=== PATIENT | male | born 1945 | race Caucasian/White ===

== ENCOUNTER 2019-07-19 06:42 | Inpatient (IN) | payer MEDICARE ==
[~2019-07-19] VITALS: Ht 172.7 cm; Wt 200.0 kg
--- NOTE | 2019-07-19 07:08 | PHYS DOC ---
Adult General Chief Complaint Chief Complaint: malaise HPI HPI Patient is a 74-year-old male who presents via EMS from home after having fallen from bed. Patient had called for lift assist by EMS and upon further questioning, he was found to have few days history of generalized weakness, chills and malaise. Patient denies any chest pain but does admit to some shortness of breath with exertion. He also complains of chills but is not sure whether or not he has been running a fever. He states that he has been septic in the past and is worried that he may be septic again. He does complain of a headache that he rates as moderate. He states that nothing is improving his symptoms.[] Review of Systems Review of Systems Constitutional: Denies fever or chills [] Eyes: Denies change in visual acuity, redness, or eye pain [] HENT: Denies nasal congestion or sore throat [] Respiratory: Denies cough or shortness of breath [] Cardiovascular: No additional information not addressed in HPI [] GI: Denies abdominal pain, nausea, vomiting, bloody stools or diarrhea [] : Denies dysuria or hematuria [] Musculoskeletal: Denies back pain or joint pain [] Integument: Denies rash or skin lesions [] Neurologic: Denies headache, focal weakness or sensory changes [] Endocrine: Denies polyuria or polydipsia [] All other systems were reviewed and found to be within normal limits, except as documented in this note. Physical Exam Physical Exam Constitutional: Morbidly obese, no acute distress, non-toxic appearance. [] HENT: Normocephalic, atraumatic, bilateral external ears normal, oropharynx dry, no oral exudates, nose normal. [] Eyes: PERRLA, EOMI, conjunctiva normal, no discharge. [] Neck: Normal range of motion, no tenderness, supple, no stridor. [] Cardiovascular: Regular rate and rhythm[] Lungs & Thorax: Bilateral breath sounds clear to auscultation [] Abdomen: Bowel sounds normal, contour morbidly obese, soft, no tenderness. [] Skin: Warm, dry. [] Extremities: No cyanosis, no clubbing, ROM intact, with bilateral lower extremity edema edema. [] Neurologic: Alert and oriented X 3, no focal deficits noted. [] EKG EKG EKG demonstrates a sinus rhythm with rate of 96 with ventricular trigeminy present[] Radiology/Procedures Radiology/Procedures [] Impressions: PROCEDURE: CHEST AP ONLY CHEST AP ONLY Clinical indications: Shortness of breath. COMPARISON: None available. Findings: Bilateral perihilar interstitial pulmonary edema is seen. Small right-sided pleural effusion is seen. No pneumothorax is evident. Heart size and mediastinum are difficult to evaluate due to the rotation towards the right side. IMPRESSION: Mild CHF or fluid overload. Electronically signed by: Michelle Stuart MD (07/19/2019 9:10 AM) [id number] DICTATED AND SIGNED BY: MICHELLE STUART MD DATE: 07/19/19 0910 Course & Med Decision Making Course & Med Decision Making Pertinent Labs and Imaging studies reviewed. (See chart for details) [] Dragon Disclaimer Dragon Disclaimer This electronic medical record was generated, in whole or in part, using a voice recognition dictation system. Departure Departure: Impression: Primary Impression: Generalized weakness Additional Impression: Febrile illness Disposition: ADMITTED INPATIENT Admitting Physician: Lizeth Solomon Condition: STABLE Referrals: PCP,UNKNOWN (PCP) Problem Qualifiers AYDIN MORROW Jr. DO Jul 19, 2019 07:08
--- NOTE | 2019-07-19 07:12 | EKG ---
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
[2019-07-19 07:43] LABS: BASO # 0.1 x10^3/uL (0.0-0.2); BASO % 1 % (0-3); EOS % 1 % (0-3); HEMATOCRIT 42.8 % (39.0-53.0); HEMOGLOBIN 14.8 g/dL (13.0-17.5); LYMPH # 0.6 x10^3/uL (1.0-4.8); LYMPH % 10 % (24-48); MEAN CORPUSCULAR HEMOGLOBIN 33 pg (25-35); MEAN CORPUSCULAR HGB CONC 35 g/dL (31-37); MEAN CORPUSCULAR VOLUME 96 fL (79-100); MONO # 1.1 x10^3/uL (0.0-1.1); MONO % 19 % (0-9); NEUT % 70 % (31-73); PLATELET COUNT 132 x10^3/uL (140-400); RED BLOOD COUNT 4.48 x10^6/uL (4.30-5.70); RED CELL DISTRIBUTION WIDTH 14.3 % (11.5-14.5); WHITE BLOOD COUNT 5.7 x10^3/uL (4.0-11.0)
[2019-07-19 07:50] LABS: ALBUMIN 2.7 g/dL (3.4-5.0); ALBUMIN/GLOBULIN RATIO 0.6 (1.0-1.7); CALCIUM 8.9 mg/dL (8.5-10.1); CREATININE 1.1 mg/dL (0.7-1.3); GFR 65.1; POTASSIUM 3.8 mmol/L (3.5-5.1); TOTAL BILIRUBIN 1.4 mg/dL (0.2-1.0); TOTAL PROTEIN 7.1 g/dL (6.4-8.2)
[2019-07-19 08:27] LABS: INFLUENZA A PATIENT NEGATIVE (NEGATIVE); INFLUENZA B PATIENT NEGATIVE (NEGATIVE)
[2019-07-19 08:36] LABS: BILIRUBIN,URINE NEG (NEG); CLARITY,URINE HAZY; COLOR,URINE AMBER; GLUCOSE,URINE 100 mg/dL (NEG)
[2019-07-19 08:37] LABS: AMORPHOUS SEDIMENT,UR PRESENT /HPF; BACTERIA,URINE FEW /HPF (0-FEW); HYALINE CASTS, URINE OCC /HPF; NITRITE,URINE NEG (NEG); RBC,URINE RARE /HPF (0-2); SQUAMOUS EPITHELIAL CELL,UR MOD /LPF; UROBILINOGEN,URINE 4 mg/dL (0.2 mg/dL)
[2019-07-19 08:51] LABS: HYPOCHROMIA PRESENT; PLT ESTIMATE DECREASED (ADEQUATE)
[2019-07-19] MEDS ORDERED: ACETAMINOPHEN 500 MG TABLET PO ONE (09:00)
--- NOTE | 2019-07-19 09:12 | RAD ---
CHEST AP ONLY Clinical indications: Shortness of breath. COMPARISON: None available. Findings: Bilateral perihilar interstitial pulmonary edema is seen. Small right-sided pleural effusion is seen. No pneumothorax is evident. Heart size and mediastinum are difficult to evaluate due to the rotation towards the right side. IMPRESSION: Mild CHF or fluid overload. Electronically signed by: Jarrod Stuart MD (07/19/2019 9:10 AM) [id number]
[2019-07-19] MEDS ORDERED: ACETAMINOPHEN 325 MG TABLET PO PRN (10:00)
[2019-07-19] MEDS ORDERED: ONDANSETRON PF 4 MG/2 ML VIAL. IV PRN (10:00)
[2019-07-19 11:30] VITALS: BP 153/83
[2019-07-19] MEDS ORDERED: FLU VAX QS 2019-20 (36MOS+)/PF 0.5 ML SYRINGE. VAX IM ONE (13:00)
--- NOTE | 2019-07-19 13:13 | HP ---
ADMIT DATE: 07/19/2019 HISTORY OF PRESENT ILLNESS: The patient is a 74-year-old male patient who was brought to the Emergency Room via EMS from home after having fallen from bed. He apparently has called for help, and on questioning there, he apparently was found to have complaint of generalized weakness, chills, and malaise. He has also had frequency and dysuria. His stated that he was going to the bathroom every 10-20 minutes from 8 p.m. to 11 p.m. last night. After that, he used a urinal. This morning, he fell down on the floor around 5:00 a.m. when they called EMS. He also complained of generalized aches and pains and headache for the last 3 days. He specifically denied any chest pain. Did complain of shortness of breath, but denied any orthopnea or paroxysmal nocturnal dyspnea. He was extensively investigated and his chest x-ray showed he has bilateral perihilar interstitial pulmonary edema seen, small right-sided pleural effusion; however, no pneumothorax evident. Heart size and mediastinum are difficult to evaluate due to rotation towards the right side. His urinalysis showed the urine was hazy with a pH of 6.5, specific gravity of 1.025. There was large amount of protein, trace of glucose, trace of ketones, moderate amount of blood, and there was only 1-4 wbc's, very few bacteria; however, his influenza A and B as well as group A streptococcus rapid testing was negative. The patient was admitted to investigate him further. Apparently, his troponin was slightly elevated at 0.028. He has also episodes of what seemed to be atrial fibrillation with rapid ventricular response and therefore we will consult the cardiology team. PAST MEDICAL HISTORY: Significant for hypertension, hyperlipidemia, and type 2 diabetes. He is also known to have morbid obesity, obstructive sleep apnea, on CPAP. He has generalized osteoarthritis, gout, and peripheral neuropathy affecting both hands and feet. 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 He is legally blind on the right eye. He also complained of tinnitus and difficulty hearing. PAST SURGICAL HISTORY: Significant for bilateral total knee arthroplasty, periumbilical hernia repair, bilateral cataract extraction, tonsillectomy, as well as colonoscopy. ALLERGIES: He is allergic what seems to be angiotensin-converting enzyme as he developed angioneurotic edema and he was advised to stop the medication, although he cannot recall the name of the medication. DICTATION ENDS HERE. UZMA DAWKINS MD DR: RAJWINDER/juan JOB#: [id number] / [id number]
[2019-07-19] MEDS ORDERED: PIP/TAZO PER PHARMACY MC PRN (13:15)
[2019-07-19] MEDS ORDERED: SITA100T PO (13:24)
[2019-07-19] MEDS ORDERED: METO50TA6 PO (13:32)
[2019-07-19] MEDS ORDERED: SIMV80TA17 PO (13:32)
[2019-07-19] MEDS ORDERED: GLIM2TAB3 PO (13:32)
[2019-07-19] MEDS ORDERED: PIOG30TA41 PO (13:32)
[2019-07-19] MEDS ORDERED: FURO20TA3 PO (13:32)
[2019-07-19] MEDS ORDERED: LOSA100T14 PO (13:32)
[2019-07-19] MEDS ORDERED: FLUO20CA8 PO (13:32)
[2019-07-19] MEDS: PIPERACILLIN/TAZOBACTAM 4.5 GM in IV NORMAL SALINE 50ML 50 ML IV SCH ×2 (13:49→20:31)
--- NOTE | 2019-07-19 14:39 | HP ---
ADMIT DATE: 07/19/2019 HISTORY OF PRESENT ILLNESS: The patient is a 74-year-old male patient who was brought to the Emergency Room via EMS from home after having fallen from bed. He apparently has called for help, and on questioning there, he apparently was found to have complaint of generalized weakness, chills, and malaise. He has also had frequency and dysuria. His stated that he was going to the bathroom every 10-20 minutes from 8 p.m. to 11 p.m. last night. After that, he used a urinal. This morning, he fell down on the floor around 5:00 a.m. when they called EMS. He also complained of generalized aches and pains and headache for the last 3 days. He specifically denied any chest pain. Did complain of shortness of breath, but denied any orthopnea or paroxysmal nocturnal dyspnea. He was extensively investigated and his chest x-ray showed he has bilateral perihilar interstitial pulmonary edema seen, small right-sided pleural effusion; however, no pneumothorax evident. Heart size and mediastinum are difficult to evaluate due to rotation towards the right side. His urinalysis showed the urine was hazy with a pH of 6.5, specific gravity of 1.025. There was large amount of protein, trace of glucose, trace of ketones, moderate amount of blood, and there was only 1-4 wbc's, very few bacteria; however, his influenza A and B as well as group A streptococcus rapid testing was negative. The patient was admitted to investigate him further. Apparently, his troponin was slightly elevated at 0.028. He has also episodes of what seemed to be atrial fibrillation with rapid ventricular response and therefore we will consult the cardiology team. PAST MEDICAL HISTORY: Significant for hypertension, hyperlipidemia, and type 2 diabetes. He is also known to have morbid obesity, obstructive sleep apnea, on CPAP. He has generalized osteoarthritis, gout, and peripheral neuropathy affecting both hands and feet. 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 He is legally blind on the right eye. He also complained of tinnitus and difficulty hearing. PAST SURGICAL HISTORY: Significant for bilateral total knee arthroplasty, periumbilical hernia repair, bilateral cataract extraction, tonsillectomy, as well as colonoscopy. ALLERGIES: He is allergic what seems to be angiotensin-converting enzyme as he developed angioneurotic edema and he was advised to stop the medication, although he cannot recall the name of the medication. He was on following medications, although he has not been taking them for almost a year now according to him. He is on simvastatin 80 mg at bedtime, omega-3 fatty acid 1000 mg twice a day, metoprolol tartrate 50 mg once a day, losartan potassium 50 mg daily, aspirin 81 mg once a day, duloxetine 60 mg daily, potassium chloride 30 mEq at bedtime. He is on furosemide 20 mg once a day, magnesium oxide 400 mg daily. He is on sitagliptin phosphate 100 mg daily, glimepiride 2 mg twice a day, pioglitazone 30 mg p.o. daily. FAMILY HISTORY: Noncontributory. SOCIAL HISTORY: He is for the last 55 years. He lives at home with his . He is a former smoker. He does not drink alcohol, any recreational drugs. He is retired from [employer]. REVIEW OF SYSTEMS: The patient denied any blurring of vision. Does have bilateral cataract extraction and has retinal detachment of his right eye and he is clinically legally blind. He has also optic neuropathy. Denied any glaucoma or macular degeneration. He is hard of hearing in both ears and has also tinnitus. Denied any nosebleeds, stuffy nose or postnasal drip. Denied any sore throat, sore tongue, toothache, hoarseness of voice or difficulty swallowing. Denied any nausea, vomiting, diarrhea or constipation. Denied any hematemesis, melena or hematochezia. Denied any dysuria or frequency. He did complain of dysuria, frequency, but denied any hematuria. Denied any chest pain. He did complain of shortness of breath, but denied any cough, phlegm or hemoptysis. Did complain of chills. Denied any orthopnea or paroxysmal nocturnal dyspnea. PHYSICAL EXAMINATION: GENERAL: On arrival to the Emergency Room, he looked well and was clearly in no apparent respiratory distress, slightly pale, but no jaundice, cyanosis or thyromegaly. No jugular venous distention. No limb edema. VITAL SIGNS: His heart rate was 93, blood pressure was 170/87, temperature was 99.8, respiratory rate was 36 and oxygen saturation was 93% on 2 liters of oxygen. HEAD, EYES, EARS, NOSE AND THROAT: Showed normocephalic, atraumatic. NECK: Supple. HEART: Showed normal first and second heart sounds with no gallop or murmur. CHEST: Clear to auscultation. No crepitation or rhonchi. ABDOMEN: Distended, soft, nontender. No guarding or rigidity. No organomegaly. All hernial orifice intact. Bowel sounds normal. NEUROLOGIC: He was awake, alert, responding appropriately. All cranial nerves intact. EXTREMITIES: He moves extremities without difficulty, although he is apparently mostly bedbound, chair bound. He has bilateral chronic lymphedema. LABORATORY DATA: His lab work on arrival showed a white cell count of 5700, hemoglobin 14.8, hematocrit 42.8, MCV 96, and platelet count of 132,000 with normal manual differential. His chemistry showed a serum sodium 135, potassium 3.8, chloride 100, bicarbonate 27, anion gap of 8, BUN 17, creatinine 1.1, estimated GFR was 65 mL per minute. His glucose was 201, lactic acid was 2.2, calcium was 8.9. Total bilirubin is 1.4. AST, ALT, alkaline phosphatase were normal. Total protein was 7.1, albumin was 2.7. His troponin was less than 0.028. His chest x-ray showed he has bilateral perihilar interstitial pulmonary edema seen, small right-sided pleural effusion seen. No pneumothorax is evident. Heart size and mediastinum are difficult to evaluate due to the rotation towards the right side. ASSESSMENT AND PLAN: In summary, this is a 74-year-old male patient with a multitude of medical problems including hypertension, hyperlipidemia, type 2 diabetes. He has also morbid obesity; obstructive sleep apnea, on CPAP; generalized osteoarthritis; gout; peripheral neuropathy, who apparently fell. He is also complaining of dysuria and frequency. Denied any hematuria. He also complained of chills, but no fever. His urinalysis was surprisingly unremarkable. In particular, he has no leukocytosis, no leukocyturia and no nitrites, and no bacteria in the urine. My plan is to continue to monitor him and obviously send urine and blood for culture and sensitivity. If he spike his temperature or continued, we will consult Physical and occupational therapist. We will contact his primary care physician to get all his medication before and I will decide on further management accordingly. Given that he has a history of sepsis and there is no obvious focus of infection except perhaps he has bilateral lower extremity lymphedema with some erythema, I will start him on IV antibiotic in the form perhaps of Zyvox orally and perhaps Zosyn 3.375 grams IV every 8 hours after obtaining the urine and blood for culture and sensitivity. UZMA DAWKINS MD DR: RAJWINDER/juan JOB#: [id number] / [id number]
[2019-07-19 16:00] VITALS: BP 162/81
[2019-07-19 20:25] VITALS: BP 162/72
[2019-07-19] MEDS: LINEZOLID 600 MG TABLET PO SCH (20:31)
[2019-07-19 23:56] VITALS: BP 139/72
[2019-07-20] MEDS: PIPERACILLIN/TAZOBACTAM 4.5 GM in IV NORMAL SALINE 50ML 50 ML IV SCH ×4 (00:35→17:57)
[2019-07-20 06:02] VITALS: BP 135/63
[2019-07-20 06:30] LABS: BASO % 1 % (0-3); EOS % 1 % (0-3); HEMATOCRIT 39.7 % (39.0-53.0); HEMOGLOBIN 13.8 g/dL (13.0-17.5); LYMPH # 0.7 x10^3/uL (1.0-4.8); LYMPH % 20 % (24-48); MEAN CORPUSCULAR HEMOGLOBIN 34 pg (25-35); MEAN CORPUSCULAR HGB CONC 35 g/dL (31-37); MEAN CORPUSCULAR VOLUME 96 fL (79-100); MONO # 0.9 x10^3/uL (0.0-1.1); MONO % 24 % (0-9); NEUT # 1.9 x10^3uL (1.8-7.7); NEUT % 54 % (31-73); PLATELET COUNT 95 x10^3/uL (140-400); RED BLOOD COUNT 4.13 x10^6/uL (4.30-5.70); WHITE BLOOD COUNT 3.5 x10^3/uL (4.0-11.0)
[2019-07-20 06:41] LABS: ALBUMIN 2.4 g/dL (3.4-5.0); ALBUMIN/GLOBULIN RATIO 0.6 (1.0-1.7); C REACTIVE PROTEIN 35.9 mg/L (0-3.3); CALCIUM 8.3 mg/dL (8.5-10.1); GFR 72.6; POTASSIUM 3.9 mmol/L (3.5-5.1); TOTAL BILIRUBIN 1.5 mg/dL (0.2-1.0); TOTAL PROTEIN 6.5 g/dL (6.4-8.2)
[2019-07-20 07:26] LABS: % BANDS 4 % (0-9); % BASOS 3 % (0-3); % EOS 0 % (0-5); % LYMPHS 20 % (24-48); % MONOS 18 % (0-10); % SEGS 53 % (35-66)
[2019-07-20 07:27] LABS: % ATYL 2 % (0-0); PLT ESTIMATE DECREASED (ADEQUATE)
[2019-07-20] MEDS ORDERED: ASPI81TA50 PO (07:49)
[2019-07-20] MEDS ORDERED: MULT1TAB52 PO (07:49)
[2019-07-20] MEDS ORDERED: MOME15CR13 TP (07:49)
[2019-07-20] MEDS ORDERED: OMEG1CAP38 PO (07:49)
[2019-07-20] MEDS ORDERED: POTA10TA5 PO (07:49)
[2019-07-20] MEDS ORDERED: ACET500T68 PO (07:49)
[2019-07-20] MEDS ORDERED: MAGN500C10 PO (07:49)
[2019-07-20] MEDS ORDERED: DEXTROSE 50% 25 GM / 50ML DISP.SYRIN. IV PRN (08:00)
[2019-07-20] MEDS: INSULIN LISPRO 300 UNITS/3 ML VIAL. SQ SCH ×3 (08:00→17:00)
--- NOTE | 2019-07-20 08:09 | PDOC2 ---
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 Solomon SOURCE Source: Chart review, Patient HPI History of Present Illness This is a 74 yo male who presented secondary to falling out of bed. Patients that he has been feeling weak and had chills since Thursday. Has had urinary frequency. Weakness seem to progressively worsen. Early yesterday morning, was getting bad into bed and sat down, but unfortunately slide out of bed down to the floor. Was unable to get up so called for lift assist. Does reports that he has been short of breath, especially upon exertion, for the last 3 months. Denies any chest pain, dizziness, diaphoresis, or nausea/vomiting. Has chronic lower extremity edema, no worse than usual lately. Unfortunately, does not get out the house and no longer sees a PCP or takes any medications whatsoever. Prior list from 2017 had multiple medications listed including lasix and metoprolol. Is compliant with CPAP at . PAST MEDICAL HISTORY Cardiovascular: HTN, hyperipidemia Pulmonary: Other (EL) CENTRAL NERVOUS SYSTEM: Periperal neuropathy Musculoskeletal: Osteoarthritis Rheumatologic: Gout Endocrine: Diabetes, Other (morbid obestiy ) PAST SURGICAL HISTORY Past Surgical History: Total knee replacement (bilateral ) FAMILY HISTORY Family History: Heart Disease (father ) SOCIAL HISTORY Smoke: No ALCOHOL: rare Drugs: None Lives: with Family CURRENT MEDICATIONS Current Medications Current Medications Acetaminophen (Tylenol) 1,000 mg 1X ONCE PO Last administered on 07/19/19at 09:06; Start 07/19/19 at 09:00; Stop 07/19/19 at 09:20; Status DC Ondansetron HCl (Zofran) 4 mg PRN Q4HRS PRN IV NAUSEA/VOMITING; Start 07/19/19 at 10:00; Stop 07/20/19 at 09:59 Fentanyl Citrate (Fentanyl 2ml Vial) 50 mcg PRN Q2HR PRN IV PAIN; Start 07/19/19 at 10:00; Stop 07/20/19 at 09:59 Acetaminophen (Tylenol) 650 mg PRN Q4HRS PRN PO FEVER Last administered on 07/20/19at 06:12; Start 07/19/19 at 10:00; Stop 07/20/19 at 09:59 Influenza Virus Vaccine Quadrival (Afluria Quad 2018- (3yr Up) Syringe) 0.5 ml ONCE ONCE VAX IM ; Start 07/19/19 at 13:00; Stop 07/19/19 at 13:01; Status DC Linezolid (Zyvox) 600 mg BID PO Last administered on 07/19/19at 20:31; Start 07/19/19 at 21:00 Piperacillin Sod/ Tazobactam Sod (Zosyn Per Pharmacy) 1 each PRN DAILY PRN MC SEE COMMENTS; Start 07/19/19 at 13:15 Influenza Virus Vaccine Quadrival (Afluria Quad 2018- (3yr Up) Syringe) 0.5 ml ONCE ONCE VAX IM ; Start 07/20/19 at 09:00; Stop 07/20/19 at 09:01 Piperacillin Sod/ Tazobactam Sod 4.5 gm/Sodium Chloride 50 ml @ 100 mls/hr Q6HRS IV Last administered on 07/20/19at 06:00; Start 07/19/19 at 13:30 Insulin Human Lispro (HumaLOG) 0-5 UNITS TIDWMEALS SQ ; Start 07/20/19 at 08:00 Dextrose (Dextrose 50%-Water Syringe) 12.5 gm PRN Q15MIN PRN IV SEE COMMENTS; Start 07/20/19 at 08:00 Active Scripts Active Reported Aspir-Low (Aspirin) 81 Mg Tablet.dr 1 Tab PO DAILY Magnesium (Magnesium Oxide) 500 Mg Capsule 500 Mg PO DAILY Tecate 3 Fish Oil Softgel ([place]ecate-3 Fatty Acids/Fish Oil) 1 Each Capsule.dr 1 Each PO DAILY Elocon (Mometasone Furoate) 15 Gm Cream..g. 1 Alysia TP DAILY Klor-Con 10 (Potassium Chloride) 10 Meq Tablet.er 1 Tab PO DAILY Simvastatin 80 Mg Tablet 1 Tab PO DAILY Furosemide 20 Mg Tablet 1 Tab PO DAILY Losartan Potassium 100 Mg Tablet 50 Mg PO DAILY Fluoxetine Hcl 20 Mg Capsule 1 Cap PO DAILY Actos (Pioglitazone Hcl) 30 Mg Tablet 1 Tab PO DAILY Glimepiride 2 Mg Tablet 1 Tab PO BID Metoprolol Tartrate 50 Mg Tablet 1 Tab PO DAILY Januvia (Sitagliptin Phosphate) 100 Mg Tablet 1 Tab PO DAILY Acetaminophen 500 Mg Tablet 2 Tab PO Q6HRS PRN ALLERGIES Allergies: Coded Allergies: Influenza Virus Vaccines (Verified Allergy, Mild, rash, 07/20/19) ROS Review of Systems 14 point ROS conducted with pertinent positives noted above in HPI PHYSICAL EXAM General: Alert, Oriented X3, Cooperative, No acute distress HEENT: Atraumatic, Mucous membr. moist/pink Lungs: Other (fine bibasilar crackles and expiratroy wheezes throughout ) Heart: Regular rate (frequent PVCs and PACs), Other (distant heart tones ) Extremities: Other (2+ bilateral LE edema. Venous stasis changes ) Psych/Mental Status: Mental status NL, Other (flat affect ) MUSCULOSKELETAL: Osteoarthritic changes both hands VITALS Vital Signs Vital Signs Date Time Temp Pulse Resp B/P (MAP) Pulse Ox O2 Delivery O2 Flow Rate FiO2 07/20/19 06:02 98.9 73 24 135/63 (87) 95 Nasal Cannula 2.0 LABS LABS Laboratory Tests Test 07/19/19 07:05 07/19/19 07:15 07/19/19 07:55 07/19/19 08:10 Troponin I Quantitative 0.028 ng/mL (0-0.055) CE-Opx-P-Type Natriuretic Peptide 184 pg/mL (0-449) White Blood Count 5.7 x10^3/uL (4.0-11.0) Red Blood Count 4.48 x10^6/uL (4.30-5.70) Hemoglobin 14.8 g/dL (13.0-17.5) Hematocrit 42.8 % (39.0-53.0) Mean Corpuscular Volume 96 fL (79-100) Mean Corpuscular Hemoglobin 33 pg (25-35) Mean Corpuscular Hemoglobin Concent 35 g/dL (31-37) Red Cell Distribution Width 14.3 % (11.5-14.5) Platelet Count 132 x10^3/uL (140-400) Neutrophils (%) (Auto) 70 % (31-73) Lymphocytes (%) (Auto) 10 % (24-48) Monocytes (%) (Auto) 19 % (0-9) Eosinophils (%) (Auto) 1 % (0-3) Basophils (%) (Auto) 1 % (0-3) Neutrophils # (Auto) 4.0 x10^3uL (1.8-7.7) Lymphocytes # (Auto) 0.6 x10^3/uL (1.0-4.8) Monocytes # (Auto) 1.1 x10^3/uL (0.0-1.1) Eosinophils # (Auto) 0.0 x10^3/uL (0.0-0.7) Basophils # (Auto) 0.1 x10^3/uL (0.0-0.2) Platelet Estimate Decreased (ADEQUATE) Hypochromasia Present Sodium Level 135 mmol/L (136-145) Potassium Level 3.8 mmol/L (3.5-5.1) Chloride Level 100 mmol/L (98-107) Carbon Dioxide Level 27 mmol/L (21-32) Anion Gap 8 (6-14) Blood Urea Nitrogen 17 mg/dL (8-26) Creatinine 1.1 mg/dL (0.7-1.3) Estimated GFR (Cockcroft-Gault) 65.1 BUN/Creatinine Ratio 15 (6-20) Glucose Level 201 mg/dL (70-99) Lactic Acid Level 2.2 mmol/L (0.4-2.0) Calcium Level 8.9 mg/dL (8.5-10.1) Total Bilirubin 1.4 mg/dL (0.2-1.0) Aspartate Amino Transf (AST/SGOT) 50 U/L (15-37) Alanine Aminotransferase (ALT/SGPT) 31 U/L (16-63) Alkaline Phosphatase 68 U/L (46-116) Total Protein 7.1 g/dL (6.4-8.2) Albumin 2.7 g/dL (3.4-5.0) Albumin/Globulin Ratio 0.6 (1.0-1.7) Influenza Type A (Rapid) Negative (NEGATIVE) Influenza Type B (Rapid) Negative (NEGATIVE) Group A Streptococcus Rapid Negative (NEGATIVE) Urine Collection Type Unknown Urine Color Perri Urine Clarity Hazy Urine pH 6.5 Urine Specific Indian 1.025 Urine Protein >100 mg/dl (NEG-TRACE) Urine Glucose (UA) 100 mg/dL (NEG) Urine Ketones (Stick) Trace mg/dL (NEG) Urine Blood Mod (NEG) Urine Nitrite Neg (NEG) Urine Bilirubin Neg (NEG) Urine Urobilinogen Dipstick 4 mg/dL (0.2 mg/dL) Urine Leukocyte Esterase Neg (NEG) Urine RBC Rare /HPF (0-2) Urine WBC 1-4 /HPF (0-4) Urine Squamous Epithelial Cells Mod /LPF Urine Amorphous Sediment Present /HPF Urine Bacteria Few /HPF (0-FEW) Urine Hyaline Casts Occ /HPF Urine Mucus Slight /LPF Test 07/19/19 10:45 07/19/19 12:02 07/19/19 14:15 07/19/19 16:31 Lactic Acid Level 1.8 mmol/L (0.4-2.0) Glucose (Fingerstick) 186 mg/dL (70-99) 126 mg/dL (70-99) Troponin I Quantitative 0.036 ng/mL (0-0.055) Test 07/19/19 18:00 07/19/19 20:47 07/19/19 23:10 07/20/19 05:49 Troponin I Quantitative 0.044 ng/mL (0-0.055) 0.067 ng/mL (0-0.055) 0.041 ng/mL (0-0.055) Glucose (Fingerstick) 146 mg/dL (70-99) White Blood Count 3.5 x10^3/uL (4.0-11.0) Red Blood Count 4.13 x10^6/uL (4.30-5.70) Hemoglobin 13.8 g/dL (13.0-17.5) Hematocrit 39.7 % (39.0-53.0) Mean Corpuscular Volume 96 fL (79-100) Mean Corpuscular Hemoglobin 34 pg (25-35) Mean Corpuscular Hemoglobin Concent 35 g/dL (31-37) Red Cell Distribution Width 14.0 % (11.5-14.5) Platelet Count 95 x10^3/uL (140-400) Neutrophils (%) (Auto) 54 % (31-73) Lymphocytes (%) (Auto) 20 % (24-48) Monocytes (%) (Auto) 24 % (0-9) Eosinophils (%) (Auto) 1 % (0-3) Basophils (%) (Auto) 1 % (0-3) Neutrophils # (Auto) 1.9 x10^3uL (1.8-7.7) Lymphocytes # (Auto) 0.7 x10^3/uL (1.0-4.8) Monocytes # (Auto) 0.9 x10^3/uL (0.0-1.1) Eosinophils # (Auto) 0.0 x10^3/uL (0.0-0.7) Basophils # (Auto) 0.0 x10^3/uL (0.0-0.2) Segmented Neutrophils % 53 % (35-66) Band Neutrophils % 4 % (0-9) Lymphocytes % 20 % (24-48) Atypical Lymphocytes % (Manual) 2 % (0-0) Monocytes % 18 % (0-10) Eosinophils % 0 % (0-5) Basophils % 3 % (0-3) Platelet Estimate Decreased (ADEQUATE) Erythrocyte Sedimentation Rate 45 (0-15) Sodium Level 132 mmol/L (136-145) Potassium Level 3.9 mmol/L (3.5-5.1) Chloride Level 100 mmol/L (98-107) Carbon Dioxide Level 26 mmol/L (21-32) Anion Gap 6 (6-14) Blood Urea Nitrogen 18 mg/dL (8-26) Creatinine 1.0 mg/dL (0.7-1.3) Estimated GFR (Cockcroft-Gault) 72.6 BUN/Creatinine Ratio 18 (6-20) Glucose Level 136 mg/dL (70-99) Calcium Level 8.3 mg/dL (8.5-10.1) Total Bilirubin 1.5 mg/dL (0.2-1.0) Aspartate Amino Transf (AST/SGOT) 60 U/L (15-37) Alanine Aminotransferase (ALT/SGPT) 28 U/L (16-63) Alkaline Phosphatase 56 U/L (46-116) C-Reactive Protein 35.9 mg/L (0-3.3) Total Protein 6.5 g/dL (6.4-8.2) Albumin 2.4 g/dL (3.4-5.0) Albumin/Globulin Ratio 0.6 (1.0-1.7) Test 07/20/19 07:49 Glucose (Fingerstick) 124 mg/dL (70-99) ASSESSMENT/PLAN Assessment/Plan 1. Mechanical fall 2. Weakness, malaise, fevers, lactic acidosis 3. Chest pain; patient presently denying any chest pain 4. Accelerated hypertension; better controlled now 5. Acute probable diastolic CHF, multifactorial 6. Mild troponin elevation; peak 0.06. Most probably type II, demand ischemia secondary to above culprits 7. Hyperlipidemia 8. Diabetes, II 9. EL with CPAP 10. Ectopy; having frequent PVC's and PACs 11. Morbid obesity 12. Noncompliance; unfortunately does not get out of the house and has not been taking any medications at home. Medication list from 2017 has multiple meds listed Recommendations Mild diuresis Echo to assess LV systolic function Lipids, TSH, Mg level ASA therapy BB for arrhythmia suppression Supportive care. Further pending above JEANE AVALOS MD 07/20/19 1630: CARDIAC CONSULT ASSESSMENT/PLAN Assessment/Plan Pt. seen and examined. Agree with above BUILDING ECONOMIST note. Continue diuresis as tolerated. Echo with normal EF. MADISON HAIDER APRN Jul 20, 2019 08:09 JEANE AVALOS MD Jul 20, 2019 16:30
[2019-07-20] MEDS ORDERED: FUROSEMIDE 40 MG/4 ML VIAL IVP ONE (08:45)
[2019-07-20] MEDS ORDERED: POTASSIUM CHLORIDE 20 MEQ TABLET.ER. PO ONE (08:45)
[2019-07-20] MEDS: LINEZOLID 600 MG TABLET PO SCH ×2 (08:56→21:43)
[2019-07-20] MEDS: METOPROLOL TART IMMED RELEASE 25 MG TABLET PO SCH ×2 (08:56→21:40)
[2019-07-20] MEDS ORDERED: FLU VAX QS 2019-20 (36MOS+)/PF 0.5 ML SYRINGE. VAX IM ONE (09:00)
[2019-07-20 12:43] VITALS: BP 124/74
[2019-07-20] MEDS ORDERED: PERFLUTREN PROTEIN-A MICROSPHR 0.22 MG/ML 3 ML VIAL. IV ONE (15:10)
[2019-07-20 15:55] VITALS: BP 111/67
--- NOTE | 2019-07-20 16:05 | CARD ---
MR#: [id number] Date of Study: 07/20/2019 Ordering Physician: MADISON HAIDER, Referring Physician: MADISON HAIDER, Tech: Ailin Light RDCS APPROVED REPORT EXAM: Two-dimensional and M-mode echocardiogram with Doppler, color Doppler with contrast. Other Information Quality : Technically LimitedHR: 85bpm Rhythm : NSRTechnically limited study due to body habitus. INDICATION weakness Echo Enhancing Agent Indication: Endocardial border delineation Agent/Amount Used: [id number] Aortic Valve AoV Peak Ney.162.0cm/sAoV VTI31.2cm AO Peak GR.10.5mmHgLVOT Peak Ney.103.5cm/s LVOT VTI 19.75cmAO Mean GR.8mmHg Mitral Valve MV E Vlygnkpt26.9cm/sMV E Peak Gr.4mmHg MV DECEL [id number] A Yvsxycrg01.4cm/s MV E Mean Gr.1mmHgE/A Ratio0.6 LEFT VENTRICLE Technically very difficult study. The left ventricle is normal size. The left ventricular systolic fu nction is normal. The ejection fraction is 55-60%. RIGHT VENTRICLE The right ventricle is not well visualized. ATRIA The left atrium is mildly dilated. The right atrium is not well visualized. Interatrial septum not we ll visualized. AORTIC VALVE The aortic valve is not well visualized. Doppler and Color Flow revealed no significant aortic regurg itation. There is no significant aortic valvular stenosis. MITRAL VALVE The mitral valve is not well visualized. There is no evidence of mitral valve prolapse. There is no m itral valve stenosis. Doppler and Color Flow revealed trace mitral valve regurgitation. TRICUSPID VALVE The tricuspid valve is not well visualized. Doppler and Color Flow revealed trace tricuspid valve reg urgitation. There is no tricuspid valve prolapse or vegetation. PULMONIC VALVE The pulmonic valve is not well visualized. GREAT VESSELS Not well visualized. PERICARDIAL EFFUSION There is no evidence of significant pericardial effusion. Critical Notification Critical Value: No <Conclusion> Technically very difficult study. The left ventricle is normal size. The left ventricular systolic function is normal. The ejection fraction is 55-60%. There is no significant aortic valvular stenosis. Doppler and Color Flow revealed no significant aortic regurgitation. Doppler and Color Flow revealed trace mitral valve regurgitation. Doppler and Color Flow revealed trace tricuspid valve regurgitation. Signed by : Wayne Marmolejo MD Electronically Approved : 07/20/2019 16:05:02
[2019-07-20 19:24] VITALS: BP 116/56
[2019-07-20] MEDS ORDERED: MELATONIN 3 MG TABLET PO PRN ×2 (21:15→21:30)
[2019-07-20] MEDS: LACTOBACILLUS RHAMNOSUS GG 1 CAPSULE. PO SCH (21:40)
[2019-07-20] MEDS: ACETAMINOPHEN 325 MG TABLET PO PRN (21:40)
[2019-07-20 23:03] VITALS: BP 117/72
[2019-07-21] MEDS: PIPERACILLIN/TAZOBACTAM 4.5 GM in IV NORMAL SALINE 50ML 50 ML IV SCH ×4 (00:02→17:51)
--- NOTE | 2019-07-21 02:48 | PN ---
DATE: 07/20/2019 SUBJECTIVE: The patient is sitting comfortably in his chair, in no apparent distress. He has continued to complain of generalized weakness, but no fever, chills or rigors. No dizziness or lightheadedness. PHYSICAL EXAMINATION: GENERAL: When I examined him this morning, he looked pale. No jaundice, cyanosis, or thyromegaly. No jugular venous distension. No lower limb edema. VITAL SIGNS: His heart rate was 76, blood pressure was 124/74, temperature was 98.3, respiratory rate 22, and oxygen saturation was 91% on 2 liters of oxygen. HEAD, EYES, EARS, NOSE AND THROAT: Showed normocephalic, atraumatic. NECK: Supple. HEART: Showed normal first and second heart sounds. No gallop or murmur. CHEST: Clear to auscultation. No crepitation or rhonchi. ABDOMEN: Distended, soft, nontender. NEUROLOGIC: He was hard of hearing, otherwise all his cranial nerves were intact. He ambulates with a walker with standby assist. His intake was 980, output was 625. LABORATORY DATA: Showed a white cell count of 3500, hemoglobin 13.8, hematocrit 39.7, MCV 96, and platelet count of 95,000. His serum sodium was 132, potassium 3.9, chloride 100, bicarbonate 26, anion gap of 6, BUN 18, creatinine 1, estimated GFR was 72 mL per minute. His glucose was 136, calcium was 8.3. Total bilirubin slightly elevated. AST, ALT, alkaline phosphatase were normal. His troponin has trended upward from 0.28 to 0.67 and then trended down to 0.041. Urinalysis was essentially unremarkable. His influenza A and B was negative. Group A streptococcus rapid test was negative. His chest x-ray showed mild congestive heart failure with fluid overload. ASSESSMENT: 1. Bilateral lower extremity cellulitis. 2. Chronic diastolic congestive heart failure, slight elevation in troponin, likely type 2 diabetes with demand ischemia secondary to above, multiple ventricular ectopic beats. 3. Obstructive sleep apnea, on CPAP. 4. Hyperlipidemia. 5. Type 2 diabetes. 6. Morbid obesity, noncompliance. Unfortunately, he does not get out of the house and has not been taking any medication at home. PLAN: To continue with IV antibiotic. He was started on low dose beta blockers as well as aspirin. We will continue with insulin sliding scale. Continue with oral linezolid and IV piperacillin and tazobactam. Continue with physical and occupational therapy. We will follow his lab work closely and decide the further management accordingly. UZMA DAWKINS MD DR: RAJWINDER/juan JOB#: [id number] / [id number]
[2019-07-21 04:55] VITALS: BP 109/69
[2019-07-21 06:21] LABS: ALBUMIN 2.4 g/dL (3.4-5.0); ALBUMIN/GLOBULIN RATIO 0.6 (1.0-1.7); CALCIUM 8.4 mg/dL (8.5-10.1); CREATININE 1.1 mg/dL (0.7-1.3); GFR 65.1; POTASSIUM 3.5 mmol/L (3.5-5.1); TOTAL BILIRUBIN 1.2 mg/dL (0.2-1.0); TOTAL PROTEIN 6.5 g/dL (6.4-8.2)
[2019-07-21 06:24] LABS: HEMATOCRIT 41.3 % (39.0-53.0); HEMOGLOBIN 14.2 g/dL (13.0-17.5); RED BLOOD COUNT 4.31 x10^6/uL (4.30-5.70); RED CELL DISTRIBUTION WIDTH 14.4 % (11.5-14.5); WHITE BLOOD COUNT 4.6 x10^3/uL (4.0-11.0)
[2019-07-21 07:09] LABS: HEMOGLOBIN A1C 7.1 % (4.8-5.6)
[2019-07-21] MEDS: INSULIN LISPRO 300 UNITS/3 ML VIAL. SQ SCH ×3 (07:29→16:58)
--- NOTE | 2019-07-21 08:34 | PDOC ---
CARDIO Progress Notes Date & Time Date of Service DATE: 07/21/19 TIME: 08:33 Time of Evaluation 08:33 Subjective Notes feeling better today. Vitals Vitals Vital Signs Date Time Temp Pulse Resp B/P (MAP) Pulse Ox O2 Delivery O2 Flow Rate FiO2 07/21/19 04:55 98.8 63 20 109/69 (82) 98 Nasal Cannula 2.0 Weight Weight [ ] Input and Output I.O. Intake and Output 07/21/19 07:00 Intake Total 1490 ml Output Total 2401 ml Balance -911 ml Intake Oral 1390 ml IV Total 100 ml Output Urine Total 2400 ml Stool Total 1 ml # Bowel Movements 4 Laboratory Labs Laboratory Tests Test 07/19/19 10:45 07/19/19 12:02 07/19/19 14:15 07/19/19 16:31 Lactic Acid Level 1.8 mmol/L (0.4-2.0) Glucose (Fingerstick) 186 mg/dL (70-99) 126 mg/dL (70-99) Troponin I Quantitative 0.036 ng/mL (0-0.055) Test 07/19/19 18:00 07/19/19 20:47 07/19/19 23:10 07/20/19 05:49 Troponin I Quantitative 0.044 ng/mL (0-0.055) 0.067 ng/mL (0-0.055) 0.041 ng/mL (0-0.055) Glucose (Fingerstick) 146 mg/dL (70-99) White Blood Count 3.5 x10^3/uL (4.0-11.0) Red Blood Count 4.13 x10^6/uL (4.30-5.70) Hemoglobin 13.8 g/dL (13.0-17.5) Hematocrit 39.7 % (39.0-53.0) Mean Corpuscular Volume 96 fL (79-100) Mean Corpuscular Hemoglobin 34 pg (25-35) Mean Corpuscular Hemoglobin Concent 35 g/dL (31-37) Red Cell Distribution Width 14.0 % (11.5-14.5) Platelet Count 95 x10^3/uL (140-400) Neutrophils (%) (Auto) 54 % (31-73) Lymphocytes (%) (Auto) 20 % (24-48) Monocytes (%) (Auto) 24 % (0-9) Eosinophils (%) (Auto) 1 % (0-3) Basophils (%) (Auto) 1 % (0-3) Neutrophils # (Auto) 1.9 x10^3uL (1.8-7.7) Lymphocytes # (Auto) 0.7 x10^3/uL (1.0-4.8) Monocytes # (Auto) 0.9 x10^3/uL (0.0-1.1) Eosinophils # (Auto) 0.0 x10^3/uL (0.0-0.7) Basophils # (Auto) 0.0 x10^3/uL (0.0-0.2) Segmented Neutrophils % 53 % (35-66) Band Neutrophils % 4 % (0-9) Lymphocytes % 20 % (24-48) Atypical Lymphocytes % (Manual) 2 % (0-0) Monocytes % 18 % (0-10) Eosinophils % 0 % (0-5) Basophils % 3 % (0-3) Platelet Estimate Decreased (ADEQUATE) Erythrocyte Sedimentation Rate 45 (0-15) Sodium Level 132 mmol/L (136-145) Potassium Level 3.9 mmol/L (3.5-5.1) Chloride Level 100 mmol/L (98-107) Carbon Dioxide Level 26 mmol/L (21-32) Anion Gap 6 (6-14) Blood Urea Nitrogen 18 mg/dL (8-26) Creatinine 1.0 mg/dL (0.7-1.3) Estimated GFR (Cockcroft-Gault) 72.6 BUN/Creatinine Ratio 18 (6-20) Glucose Level 136 mg/dL (70-99) Calcium Level 8.3 mg/dL (8.5-10.1) Magnesium Level 1.3 mg/dL (1.8-2.4) Total Bilirubin 1.5 mg/dL (0.2-1.0) Aspartate Amino Transf (AST/SGOT) 60 U/L (15-37) Alanine Aminotransferase (ALT/SGPT) 28 U/L (16-63) Alkaline Phosphatase 56 U/L (46-116) C-Reactive Protein 35.9 mg/L (0-3.3) Total Protein 6.5 g/dL (6.4-8.2) Albumin 2.4 g/dL (3.4-5.0) Albumin/Globulin Ratio 0.6 (1.0-1.7) Test 07/20/19 07:49 07/20/19 12:09 07/20/19 16:57 07/20/19 20:00 Glucose (Fingerstick) 124 mg/dL (70-99) 131 mg/dL (70-99) 135 mg/dL (70-99) 139 mg/dL (70-99) Test 07/21/19 05:45 07/21/19 07:28 White Blood Count 4.6 x10^3/uL (4.0-11.0) Red Blood Count 4.31 x10^6/uL (4.30-5.70) Hemoglobin 14.2 g/dL (13.0-17.5) Hematocrit 41.3 % (39.0-53.0) Mean Corpuscular Volume 96 fL (79-100) Mean Corpuscular Hemoglobin 33 pg (25-35) Mean Corpuscular Hemoglobin Concent 34 g/dL (31-37) Red Cell Distribution Width 14.4 % (11.5-14.5) Platelet Count 101 x10^3/uL (140-400) Sodium Level 135 mmol/L (136-145) Potassium Level 3.5 mmol/L (3.5-5.1) Chloride Level 100 mmol/L (98-107) Carbon Dioxide Level 26 mmol/L (21-32) Anion Gap 9 (6-14) Blood Urea Nitrogen 24 mg/dL (8-26) Creatinine 1.1 mg/dL (0.7-1.3) Estimated GFR (Cockcroft-Gault) 65.1 BUN/Creatinine Ratio 22 (6-20) Glucose Level 134 mg/dL (70-99) Calcium Level 8.4 mg/dL (8.5-10.1) Total Bilirubin 1.2 mg/dL (0.2-1.0) Aspartate Amino Transf (AST/SGOT) 59 U/L (15-37) Alanine Aminotransferase (ALT/SGPT) 30 U/L (16-63) Alkaline Phosphatase 55 U/L (46-116) Total Protein 6.5 g/dL (6.4-8.2) Albumin 2.4 g/dL (3.4-5.0) Albumin/Globulin Ratio 0.6 (1.0-1.7) Glucose (Fingerstick) 112 mg/dL (70-99) Microbiology Micro Microbiology 07/19/19 Blood Culture - Preliminary, Resulted NO GROWTH AFTER 1 DAY... Physical Exams HEENT: Neck Supple W Full Motion Chest: Symmetric Lungs: Clear to Auscultation Heart: S1S2, RRR Abdomen: Soft N/T, Other (obese) Extremities: Other (1+ bilateral LE edema ) Neurology: alert, oriented, follow commands Assessment Assessment 1. Mechanical fall 2. Weakness, malaise, fevers, lactic acidosis. ? LE cellulitis 3. Accelerated hypertension; now controlled 4. Acute diastolic CHF, multifactorial. Echo with preserved LV systolic function 5. Mild troponin elevation; peak 0.06. Most probably type II, demand ischemia secondary to above culprits 6. Hyperlipidemia 7. Diabetes, II 8. EL with CPAP 9. Ectopy; having frequent PVC's and PACs; suppressed with BB 10. Morbid obesity Recommendations Lasix therapy ASA, statin, BB Need to establish outpatient care Discussed/encouraged importance of medical compliance given comorbidities and weight loss. MADISON HAIDER APRN Jul 21, 2019 08:34
[2019-07-21] MEDS: LINEZOLID 600 MG TABLET PO SCH ×2 (08:41→21:38)
[2019-07-21] MEDS: LACTOBACILLUS RHAMNOSUS GG 1 CAPSULE. PO SCH ×2 (08:41→21:35)
[2019-07-21] MEDS: METOPROLOL TART IMMED RELEASE 25 MG TABLET PO SCH ×2 (08:41→21:37)
[2019-07-21] MEDS: ASPIRIN ENTERIC COATED 81 MG TABLET.DR. PO SCH (08:41)
[2019-07-21] MEDS ORDERED: POTASSIUM CHLORIDE 20 MEQ TABLET.ER. PO ONE (09:15)
[2019-07-21] MEDS ORDERED: FUROSEMIDE 40 MG/4 ML VIAL IVP ONE (09:15)
[2019-07-21 10:50] VITALS: BP 133/81
[2019-07-21] MEDS: ACETAMINOPHEN 325 MG TABLET PO PRN (14:22)
[2019-07-21] MEDS ORDERED: ACETAMINOPHEN 500 MG TABLET PO PRN (14:45)
[2019-07-21] MEDS ORDERED: DIPHENOXYLATE/ATROPINE TABLET. PO PRN (15:00)
[2019-07-21 15:23] VITALS: BP 128/81
[2019-07-21] MEDS: GLIMEPIRIDE 2 MG TABLET PO SCH (17:51)
[2019-07-21] MEDS: POTASSIUM CHLORIDE 10 MEQ TABLET.ER. PO SCH ×2 (17:51→21:37)
[2019-07-21 19:30] VITALS: BP 12/64
[2019-07-21] MEDS: SIMVASTATIN 40 MG TABLET. PO SCH (21:35)
[2019-07-21] MEDS: traZODone 50 MG TABLET. PO SCH (21:35)
[2019-07-21 23:45] VITALS: BP_SYST 136
[2019-07-22] MEDS: PIPERACILLIN/TAZOBACTAM 4.5 GM in IV NORMAL SALINE 50ML 50 ML IV SCH ×4 (00:23→17:20)
--- NOTE | 2019-07-22 05:56 | PN ---
DATE: 07/21/2019 SUBJECTIVE: The patient is sitting in his chair comfortably in no apparent distress. He did complain of insomnia and has not slept still around 3 o'clock and the melatonin was not effective. His blood cultures showed no growth over the last 2 days; however, he did grow gram-positive cocci in cluster suggestive of Staphylococcus in 2 out of 2 bottles. The identification and sensitivity is still pending at the time of this dictation. The patient has had multiple loose bowel movements; however, C. diff was negative. PHYSICAL EXAMINATION: GENERAL: When I examined him this afternoon, he was sitting comfortably in his chair, in no apparent respiratory distress. There was no pallor, jaundice, cyanosis or thyromegaly. No jugular venous distention, but marked bilateral lower lymphedema. VITAL SIGNS: Her heart rate was 64, blood pressure was 133/81, temperature was 98.5, respiratory rate 20, and oxygen saturation was 95% on room air. HEAD, EYES, EARS, NOSE AND THROAT: Showed normocephalic, atraumatic. NECK: Supple. HEART: Showed normal first and second heart sounds with no gallop, rub or murmur. CHEST: Clear to auscultation. No crepitation or rhonchi. ABDOMEN: Distended, soft, nontender. No guarding or rigidity. No organomegaly. All hernial orifice intact. Bowel sounds normal. NEUROLOGIC: He was awake, alert, responding appropriately. All cranial nerves are intact. He moves extremities without difficulty. His intake over the last 24 hours was 1490, output was 2400. LABORATORY DATA: As of this morning, his white cell count was 4600, hemoglobin 14, hematocrit 41, MCV 96, and platelet count of 101. His chemistry showed a serum sodium 135, potassium 3.5, chloride 100, bicarbonate 26, anion gap of 9, BUN 24, creatinine 1.1, estimated GFR was 65 mL per minute, his glucose 154, calcium was 8.4. Total bilirubin, AST, ALT, alkaline phosphatase were normal. Total protein was 6.5, albumin 2.4. ASSESSMENT: 1. Bilateral lower extremity cellulitis. 2. Chronic diastolic congestive heart failure, slight elevation in troponin, likely due to type 2 diabetes with demand ischemia secondary to above. 3. The patient has multiple ventricular ectopic beats, for which he was started on metoprolol. 4. Obstructive sleep apnea, on CPAP. 5. Hyperlipidemia. 6. Type 2 diabetes mellitus. 7. Morbid obesity with obstructive sleep apnea. 8. Noncompliance. PLAN: To continue with IV antibiotic in the form of Zyvox and Zosyn. Continue to monitor his blood sugar and adjust insulin as needed. Continue with physical and occupational therapy. Once we have the identification and sensitivity, the patient can be discharged to a half-way facility to continue the process of rehabilitation. I will resume some of his home medications. UZMA DAWKINS MD DR: RAJWINDER/juan JOB#: [id number] / [id number]
[2019-07-22] MEDS: INSULIN LISPRO 300 UNITS/3 ML VIAL. SQ SCH ×3 (08:00→17:00)
[2019-07-22] MEDS ORDERED: POTASSIUM CHLORIDE 10 MEQ TABLET.ER. PO SCH (08:00)
[2019-07-22] MEDS: ASPIRIN ENTERIC COATED 81 MG TABLET.DR. PO SCH (08:02)
[2019-07-22] MEDS: METOPROLOL TART IMMED RELEASE 25 MG TABLET PO SCH ×2 (08:02→20:27)
[2019-07-22] MEDS: POTASSIUM CHLORIDE 10 MEQ TABLET.ER. PO SCH ×3 (08:02→20:27)
[2019-07-22] MEDS: MAGNESIUM OXIDE 400 MG TABLET PO SCH (08:02)
[2019-07-22] MEDS: LACTOBACILLUS RHAMNOSUS GG 1 CAPSULE. PO SCH ×2 (08:02→20:27)
[2019-07-22] MEDS: OMEGA-3 FATTY ACIDS/FISH OIL 1,000 MG CAPSULE. PO SCH (08:02)
[2019-07-22] MEDS: MULTIVITAMIN with MINERAL TABLET. PO SCH (08:02)
[2019-07-22] MEDS: FUROSEMIDE 40 MG TABLET PO SCH (08:03)
[2019-07-22] MEDS: FLUoxetine HCL 20 MG CAPSULE PO SCH (08:03)
[2019-07-22] MEDS: GLIMEPIRIDE 2 MG TABLET PO SCH ×2 (08:03→17:20)
[2019-07-22] MEDS: LINEZOLID 600 MG TABLET PO SCH (08:04)
[2019-07-22] MEDS ORDERED: ASPIRIN ENTERIC COATED 81 MG TABLET.DR. PO SCH (09:00)
[2019-07-22] MEDS ORDERED: METOPROLOL TART IMMED RELEASE 50 MG TABLET PO SCH (09:00)
[2019-07-22] MEDS ORDERED: FUROSEMIDE 20 MG TABLET PO SCH (09:00)
[2019-07-22] MEDS ORDERED: VANCOMYCIN 2 GM in IV NORMAL SALINE 500ML 500 ML IV ONE (11:00)
[2019-07-22 12:29] VITALS: BP 124/68
[2019-07-22] MEDS: VANCOMYCIN PER PHARMACY MC PRN (13:44)
[2019-07-22 18:25] VITALS: BP 124/68
[2019-07-22 19:46] VITALS: BP 164/79
[2019-07-22] MEDS: traZODone 50 MG TABLET. PO SCH (20:27)
[2019-07-22] MEDS: SIMVASTATIN 40 MG TABLET. PO SCH (20:27)
[2019-07-22 22:23] VITALS: BP 132/75
[2019-07-23] MEDS: PIPERACILLIN/TAZOBACTAM 4.5 GM in IV NORMAL SALINE 50ML 50 ML IV SCH ×4 (00:09→22:58)
[2019-07-23] MEDS: VANCOMYCIN 2 GM in IV NORMAL SALINE 500ML 500 ML IV SCH ×2 (00:40→12:22)
--- NOTE | 2019-07-23 01:47 | PN ---
DATE: 07/22/2019 SUBJECTIVE: The patient is sitting comfortably in his chair, in no apparent distress. He said he slept very well last night. Denied any chest pain or shortness of breath; however, continued to have diarrhea, although the stool is more formed done than before. OBJECTIVE: GENERAL: On examining him, he looked well and was clearly in no apparent respiratory distress. No pallor, jaundice, cyanosis or thyromegaly. No jugular venous distention, but marked bilateral lower limb edema. VITAL SIGNS: Her heart rate was 65, blood pressure was 136/64, temperature was 98.3, respiratory rate was 22 and oxygen saturation was 92% on room air. The rest of clinical examination is stable. He continued to require indwelling Virgen catheter. He has marked swelling of both lower extremities and marked erythema and bluish discoloration. His intake was 1490, output was 2400. His C. diff was negative. LABORATORY DATA: White cell count was 4600, hemoglobin 14, hematocrit 41, MCV 96 and platelet count of 101. Chemistry showed a serum sodium 135, potassium 3.5, chloride 100, bicarbonate 26, anion gap of 9, BUN 24, creatinine 1.1, estimated GFR was 65 mL per minute, his glucose 134, calcium was 8.4. Total bilirubin, AST, ALT, alkaline phosphatase were normal. Total protein was 6.5, albumin was 2.4. His blood cultures have grown gram-positive cocci in cluster, suggestive of Staphylococcus, in 2/2 sets. ASSESSMENT: 1. Bilateral lower extremity cellulitis. 2. Chronic diastolic congestive heart failure, slight elevation of troponin, felt to be secondary to type 2 demand ischemia. 3. The patient has developed multiple ventricular ectopic beats for which he was started on metoprolol. 4. Morbid obesity, obstructive sleep apnea, on CPAP. 5. Hyperlipidemia. 6. Type 2 diabetes mellitus, seems to be reasonably controlled. 7. Morbid obesity. 8. Noncompliance. PLAN: Continue with IV antibiotic in the form of Zyvox and Zosyn. Continue to monitor his blood sugar and adjust insulin as needed. Continue with physical and occupational therapy. Once we have the identification and sensitivity, the patient can be discharged to a [facility] facility to continue the process of rehabilitation. UZMA DAWKINS MD DR: RAJWINDER/juan JOB#: [id number] / [id number]
[2019-07-23 05:40] VITALS: BP 156/77
[2019-07-23] MEDS: INSULIN LISPRO 300 UNITS/3 ML VIAL. SQ SCH ×3 (08:00→16:39)
[2019-07-23] MEDS: GLIMEPIRIDE 2 MG TABLET PO SCH ×2 (09:10→16:41)
[2019-07-23] MEDS: POTASSIUM CHLORIDE 10 MEQ TABLET.ER. PO SCH ×3 (09:10→20:54)
[2019-07-23] MEDS: FUROSEMIDE 40 MG TABLET PO SCH (09:10)
[2019-07-23] MEDS: MULTIVITAMIN with MINERAL TABLET. PO SCH (09:10)
[2019-07-23] MEDS: MAGNESIUM OXIDE 400 MG TABLET PO SCH (09:10)
[2019-07-23] MEDS: FLUoxetine HCL 20 MG CAPSULE PO SCH (09:10)
[2019-07-23] MEDS: METOPROLOL TART IMMED RELEASE 25 MG TABLET PO SCH ×2 (09:11→20:56)
[2019-07-23] MEDS: OMEGA-3 FATTY ACIDS/FISH OIL 1,000 MG CAPSULE. PO SCH (09:11)
[2019-07-23] MEDS: ASPIRIN ENTERIC COATED 81 MG TABLET.DR. PO SCH (09:11)
[2019-07-23] MEDS: LACTOBACILLUS RHAMNOSUS GG 1 CAPSULE. PO SCH ×2 (09:11→20:54)
[2019-07-23 11:28] VITALS: BP 143/82
[2019-07-23 11:39] LABS: HEMOGLOBIN 15.5 g/dL (13.0-17.5); RED BLOOD COUNT 4.71 x10^6/uL (4.30-5.70); WHITE BLOOD COUNT 4.8 x10^3/uL (4.0-11.0)
[2019-07-23 11:51] LABS: ALBUMIN 2.7 g/dL (3.4-5.0); ALBUMIN/GLOBULIN RATIO 0.7 (1.0-1.7); CALCIUM 8.5 mg/dL (8.5-10.1); CREATININE 0.9 mg/dL (0.7-1.3); TOTAL BILIRUBIN 0.8 mg/dL (0.2-1.0); TOTAL PROTEIN 6.8 g/dL (6.4-8.2)
[2019-07-23 11:55] LABS: POTASSIUM 4.1 mmol/L (3.5-5.1)
[2019-07-23 14:54] VITALS: BP 168/90
[2019-07-23 19:40] VITALS: BP 165/83
[2019-07-23] MEDS: traZODone 50 MG TABLET. PO SCH (20:54)
[2019-07-23] MEDS: SIMVASTATIN 40 MG TABLET. PO SCH (20:55)
[2019-07-23 23:30] VITALS: BP 177/77
[2019-07-24 00:11] LABS: VANC TR 15.1 mcg/mL (10.0-20.0)
[2019-07-24] MEDS: VANCOMYCIN 2 GM in IV NORMAL SALINE 500ML 500 ML IV SCH ×2 (00:17→12:00)
--- NOTE | 2019-07-24 01:27 | PN ---
DATE: 07/23/2019 SUBJECTIVE: The patient is sitting comfortably in his chair, in no apparent distress. He is feeling much better, continued to have diarrhea, although the consistencies much improved. His stool for C. diff was negative. His blood culture has grown gram-positive cocci in cluster suggestive of Staph. Unfortunately, the identification and sensitivity is still pending at the time of this dictation. PHYSICAL EXAMINATION: GENERAL: When I examined him, he looked well and was clear in no apparent respiratory distress. No pallor, jaundice, cyanosis, or thyromegaly. No jugular venous distension. No limb edema. VITAL SIGNS: His heart rate was 64, blood pressure was 156/77, temperature was 97.2, respiratory rate 20, and oxygen saturation was 94%. HEAD, EYES, EARS, NOSE AND THROAT: Showed normocephalic, atraumatic. NECK: Supple. HEART: Showed normal first and second heart sounds. No gallop or murmur. CHEST: Clear to auscultation. No crepitation or rhonchi. ABDOMEN: Diffusely distended, soft, nontender. NEUROLOGIC: He was awake, alert, responding appropriately. All cranial nerves are intact. He moves extremities without difficulty, ambulates with a walker. His intake was 2975, output was 2100. LABORATORY DATA: His most recent lab work showed a white cell count of 4600, hemoglobin 14, hematocrit 41, MCV 96, and platelet count of 101,000. His chemistry showed a serum sodium 135, potassium 3.5, chloride 100, bicarbonate 26, anion gap of 9, BUN 24, creatinine 1.1, estimated GFR was 65 mL per minute. Glucose 134, calcium was 8.4. Total bilirubin, AST, ALT, alkaline phosphatase were normal. Total protein was 6.5, albumin was 2.4. ASSESSMENT: 1. Bilateral lower extremity cellulitis. 2. Gram-positive bacteremia with growth of gram-positive bacteria in cluster suggestive of Staph. Unfortunately, the identification and sensitivity is still pending. 3. The patient developed multiple ventricular ectopic beats, for which he was started on metoprolol with good effect. 4. Morbid obesity. 5. Hyperlipidemia. 6. Type 2 diabetes mellitus, seems to be reasonably controlled. 7. Obstructive sleep apnea, on CPAP. PLAN: To continue with IV vancomycin and Zosyn. I discontinued the Zyvox. Continue to monitor his blood sugar and adjust insulin as needed. Continue with physical and occupational therapy. We have arranged for him to have a PICC line and once we have the sensitivity, we might be able to discharge him to [facility] to continue IV antibiotic as an outpatient. UZMA DAWKINS MD DR: RAJWINDER/juan JOB#: [id number] / [id number]
[2019-07-24] MEDS: PIPERACILLIN/TAZOBACTAM 4.5 GM in IV NORMAL SALINE 50ML 50 ML IV SCH ×5 (04:56→22:53)
[2019-07-24 06:31] VITALS: BP 133/76
[2019-07-24] MEDS: INSULIN LISPRO 300 UNITS/3 ML VIAL. SQ SCH ×3 (08:00→17:00)
[2019-07-24] MEDS: FUROSEMIDE 40 MG TABLET PO SCH (09:31)
[2019-07-24] MEDS: LACTOBACILLUS RHAMNOSUS GG 1 CAPSULE. PO SCH ×2 (09:31→21:16)
[2019-07-24] MEDS: POTASSIUM CHLORIDE 10 MEQ TABLET.ER. PO SCH ×3 (09:31→21:16)
[2019-07-24] MEDS: MULTIVITAMIN with MINERAL TABLET. PO SCH (09:32)
[2019-07-24] MEDS: METOPROLOL TART IMMED RELEASE 25 MG TABLET PO SCH ×2 (09:32→21:16)
[2019-07-24] MEDS: MAGNESIUM OXIDE 400 MG TABLET PO SCH (09:32)
[2019-07-24] MEDS: OMEGA-3 FATTY ACIDS/FISH OIL 1,000 MG CAPSULE. PO SCH (09:32)
[2019-07-24] MEDS: FLUoxetine HCL 20 MG CAPSULE PO SCH (09:32)
[2019-07-24] MEDS: ASPIRIN ENTERIC COATED 81 MG TABLET.DR. PO SCH (09:32)
[2019-07-24] MEDS: GLIMEPIRIDE 2 MG TABLET PO SCH ×2 (09:32→17:23)
[2019-07-24] MEDS: VANCOMYCIN PER PHARMACY MC PRN (09:48)
[2019-07-24 10:55] VITALS: BP 150/69
[2019-07-24 17:06] VITALS: BP 155/76
[2019-07-24 19:45] VITALS: BP 121/64
[2019-07-24] MEDS: SIMVASTATIN 40 MG TABLET. PO SCH (21:16)
[2019-07-24] MEDS: traZODone 50 MG TABLET. PO SCH (21:16)
[2019-07-25] MEDS: VANCOMYCIN 2 GM in IV NORMAL SALINE 500ML 500 ML IV SCH ×2 (01:01→12:00)
--- NOTE | 2019-07-25 03:17 | PN ---
DATE: 07/24/2019 SUBJECTIVE: The patient is sitting comfortably in his chair, in no apparent distress. On questioning him, he denied any complaint. The right lower extremity redness, swelling has largely subsided, the left continued to be slightly erythematous and swollen. The patient himself denied any fevers, chills or rigors. Unfortunately, we lost his peripheral IV with a plan to place a PICC line today. PHYSICAL EXAMINATION: GENERAL: When I examined him, he looked well and was clearly in no apparent respiratory distress. No pallor, jaundice, cyanosis or thyromegaly. No jugular venous distention. No lower limb edema. VITAL SIGNS: His heart rate was 70, blood pressure was 133/76, temperature was 97.8, respiratory rate 22, and oxygen saturation was 96% on 2 liters of oxygen by nasal cannula. HEAD, EYES, EARS, NOSE AND THROAT: Showed normocephalic, atraumatic. NECK: Supple. HEART: Showed normal first and second heart sounds with no gallop, rub or murmur. CHEST: Clear to auscultation. No crepitation or rhonchi. ABDOMEN: Markedly distended, soft, nontender. NEUROLOGIC: He was awake, alert, responding appropriately. All cranial nerves are intact. He moves extremities without difficulty, ambulates with a walker. GENITOURINARY: Has an indwelling Virgen catheter. His intake over the last 24 hours was 2500, output was 1000. LABORATORY DATA: Showed his BUN is 18, creatinine 0.9. White cell count was 4800, hemoglobin 15, hematocrit 45, MCV 96, and platelet count of 108,000. His blood culture is growing gram-positive cocci in clusters suggestive of staph; identification and sensitivity is still pending at the time of this dictation. PLAN: My plan is to obviously continue with IV antibiotic. We will arrange for him to have a PICC line, and once we have the identification and sensitivity, we will switch antibiotic and deescalate to perhaps 1 antibiotic and he can be discharged to [facility] to continue the antibiotic there and also start the process of physical and occupational therapy. UZMA DAWKINS MD DR: RAJWINDER/juan JOB#: [id number] / [id number]
[2019-07-25] MEDS: PIPERACILLIN/TAZOBACTAM 4.5 GM in IV NORMAL SALINE 50ML 50 ML IV SCH ×2 (04:56→12:29)
[2019-07-25 05:26] VITALS: BP 134/71
[2019-07-25] MEDS: INSULIN LISPRO 300 UNITS/3 ML VIAL. SQ SCH ×3 (08:00→17:00)
[2019-07-25] MEDS: OMEGA-3 FATTY ACIDS/FISH OIL 1,000 MG CAPSULE. PO SCH (08:50)
[2019-07-25] MEDS: FLUoxetine HCL 20 MG CAPSULE PO SCH (08:50)
[2019-07-25] MEDS: MAGNESIUM OXIDE 400 MG TABLET PO SCH (08:50)
[2019-07-25] MEDS: GLIMEPIRIDE 2 MG TABLET PO SCH ×2 (08:50→18:01)
[2019-07-25] MEDS: MULTIVITAMIN with MINERAL TABLET. PO SCH (08:50)
[2019-07-25] MEDS: LACTOBACILLUS RHAMNOSUS GG 1 CAPSULE. PO SCH ×2 (08:50→22:26)
[2019-07-25] MEDS: POTASSIUM CHLORIDE 10 MEQ TABLET.ER. PO SCH ×3 (08:51→22:26)
[2019-07-25] MEDS: FUROSEMIDE 40 MG TABLET PO SCH (08:51)
[2019-07-25] MEDS: ASPIRIN ENTERIC COATED 81 MG TABLET.DR. PO SCH (08:52)
[2019-07-25] MEDS: METOPROLOL TART IMMED RELEASE 25 MG TABLET PO SCH ×2 (08:52→22:27)
[2019-07-25 14:30] LABS: BASO % 1 % (0-3); EOS # 0.4 x10^3/uL (0.0-0.7); EOS % 6 % (0-3); HEMATOCRIT 41.7 % (39.0-53.0); HEMOGLOBIN 14.1 g/dL (13.0-17.5); LYMPH # 0.7 x10^3/uL (1.0-4.8); LYMPH % 10 % (24-48); MEAN CORPUSCULAR HEMOGLOBIN 32 pg (25-35); MEAN CORPUSCULAR HGB CONC 34 g/dL (31-37); MEAN CORPUSCULAR VOLUME 95 fL (79-100); MONO # 0.8 x10^3/uL (0.0-1.1); MONO % 12 % (0-9); NEUT # 4.9 x10^3uL (1.8-7.7); NEUT % 72 % (31-73); PLATELET COUNT 136 x10^3/uL (140-400); RED BLOOD COUNT 4.39 x10^6/uL (4.30-5.70); RED CELL DISTRIBUTION WIDTH 13.8 % (11.5-14.5); WHITE BLOOD COUNT 6.9 x10^3/uL (4.0-11.0)
[2019-07-25 14:46] LABS: ALBUMIN 2.6 g/dL (3.4-5.0); ALBUMIN/GLOBULIN RATIO 0.6 (1.0-1.7); GFR 72.6; TOTAL PROTEIN 7.2 g/dL (6.4-8.2)
[2019-07-25 15:36] VITALS: BP 174/73
[2019-07-25] MEDS ORDERED: diphenhydrAMINE HCL 25 MG CAPSULE PO PRN (19:30)
[2019-07-25 20:16] VITALS: BP 170/83
[2019-07-25] MEDS: traZODone 50 MG TABLET. PO SCH (22:26)
[2019-07-25] MEDS: SIMVASTATIN 40 MG TABLET. PO SCH (22:27)
[2019-07-25] MEDS: NYSTATIN TOPICAL POWDER 15GM BOTTLE. TP SCH (22:56)
[2019-07-26 00:04] VITALS: BP 130/67
--- NOTE | 2019-07-26 00:37 | PN ---
DATE: 07/25/2019 SUBJECTIVE: The patient is sitting comfortably in his chair, in no apparent respiratory distress. He is awake, alert and apparently, he developed a maculopapular rash on his back and around his neck. It is mildly itchy. PHYSICAL EXAMINATION: GENERAL: When I examined him, he looked somewhat pale. There was no pallor, jaundice, cyanosis or thyromegaly. No jugular venous distention. No limb edema. VITAL SIGNS: His heart rate was 65, blood pressure was 134/71, temperature was 98.1, respiratory rate was 20 and oxygen saturation was 93%. HEAD, EYES, EARS, NOSE AND THROAT: Showed he was normocephalic, atraumatic. NECK: Supple. HEART: Showed normal first and second heart sounds with no gallop, rub or murmur. CHEST: Clear to auscultation. No crepitation or rhonchi. ABDOMEN: Markedly distended, soft, nontender. NEUROLOGIC: He was awake, alert, responding appropriately. All cranial nerves are intact. He moves extremities without difficulty, ambulates with a walker. GENITOURINARY: He has an indwelling Virgen catheter. SKIN: Showed that he has confluent maculopapular rash, mostly on his back, not consistent with red man syndrome. He has also erythema and wound on the outer aspect of the right leg covered with dressing. His intake over the last 24 hours was 1680, output was 3150. LABORATORY DATA: His most recent lab work showed a white cell count 4800, hemoglobin 15.5, hematocrit 45, MCV 96 and platelet count of 108,000. His chemistry showed a BUN of 18, creatinine 0.9. His blood sugar seems to be reasonably well controlled given the fact he has not had any oral hypoglycemic agents for almost a year now. ASSESSMENT: 1. Bilateral lower extremity cellulitis. 2. He has Gram-positive bacteremia with growth of gram-positive bacteria in cluster, suggestive of Staph. This became available on 07/19 and so far, we do not have the identification and sensitivity. I spoke with the lab work to find out if we can get the sensitivity soon as we can discharge him to [facility]. 3. The patient developed multiple ventricular ectopic beats, for which he was started on metoprolol with good effect. 4. Morbid obesity. 5. Hyperlipidemia. 6. Type 2 diabetes mellitus, seems to be reasonably controlled. 7. Obstructive sleep apnea, on CPAP. PLAN: My plan is to discontinue Zosyn for now. We will continue with vancomycin and get the dentification and sensitivity hopefully today. UZMA DAWKINS MD DR: RAJWINDER/juan JOB#: [id number] / [id number]
[2019-07-26 06:20] VITALS: BP 114/64
[2019-07-26] MEDS: INSULIN LISPRO 300 UNITS/3 ML VIAL. SQ SCH ×2 (08:00→12:03)
[2019-07-26] MEDS: FLUoxetine HCL 20 MG CAPSULE PO SCH (08:54)
[2019-07-26] MEDS: ASPIRIN ENTERIC COATED 81 MG TABLET.DR. PO SCH (08:54)
[2019-07-26 08:55] VITALS: BP 114/64
[2019-07-26] MEDS: MULTIVITAMIN with MINERAL TABLET. PO SCH (08:55)
[2019-07-26] MEDS: METOPROLOL TART IMMED RELEASE 25 MG TABLET PO SCH (08:55)
[2019-07-26] MEDS: MAGNESIUM OXIDE 400 MG TABLET PO SCH (08:55)
[2019-07-26] MEDS: GLIMEPIRIDE 2 MG TABLET PO SCH (08:55)
[2019-07-26] MEDS: FUROSEMIDE 40 MG TABLET PO SCH (08:55)
[2019-07-26] MEDS: LACTOBACILLUS RHAMNOSUS GG 1 CAPSULE. PO SCH (08:55)
[2019-07-26] MEDS: OMEGA-3 FATTY ACIDS/FISH OIL 1,000 MG CAPSULE. PO SCH (08:55)
[2019-07-26] MEDS: POTASSIUM CHLORIDE 10 MEQ TABLET.ER. PO SCH ×2 (08:55→14:23)
[2019-07-26] MEDS: NYSTATIN TOPICAL POWDER 15GM BOTTLE. TP SCH (08:56)
[2019-07-26] MEDS ORDERED: CEFT1FRO2 IV (10:57)
--- NOTE | 2019-07-26 10:59 | DISCH ---
DISCHARGE ORDERS DISCHARGE DATE: Jul 26, 2019 FINAL DIAGNOSIS staph hominis bacteremia bilateral lower extremity cellulitis morbid obesity /EL CONDITION AT DISCHARGE: Stable Code Status: Full SNF STAY <30 DAYS: Yes POST DISCHARGE ORDERS: ACTIVITY ORDERS: Resume previous activity WEIGHT BEARING STATUS: Full weight bearing DIET AFTER DISCHARGE: ADA DISCHARGE MEDICATIONS: Home Meds Active Scripts Ceftriaxone Na/Dextrose,Iso (CEFTRIAXONE 1 GM PIGGYBACK) 1 Gm/50 Ml Froz.piggy, 1 GM IV DAILY for staph bacteremia for 10 Days, #10 EACH Prov:UZMA DAWKINS MD 07/26/19 Reported Medications Multivitamin (MULTIVITAMINS) 1 Each Tablet, 1 TAB PO DAILY for supplement, #90 TAB 3 Refills 07/20/19 Acetaminophen (ACETAMINOPHEN) 500 Mg Tablet, 2 TAB PO Q6HRS PRN for PAIN, #60 TAB 1 Refill 07/20/19 Aspirin (ASPIR-LOW) 81 Mg Tablet.dr, 1 TAB PO DAILY for heart, #30 TAB 3 Refills 07/20/19 Magnesium Oxide (MAGNESIUM) 500 Mg Capsule, 500 MG PO DAILY for supplement, CAP 07/20/19 Amado-3 Fatty Acids/Fish Oil (OMEGA 3 FISH OIL SOFTGEL) 1 Each Capsule.dr, 1 EACH PO DAILY for supplement, CAP 07/20/19 Mometasone Furoate (ELOCON) 15 Gm Cream..g., 1 YESSY TP DAILY for legs, #45 GM 07/20/19 Potassium Chloride (KLOR-CON 10) 10 Meq Tablet.er, 1 TAB PO DAILY for HTN, #30 TAB 5 Refills 07/20/19 Simvastatin (SIMVASTATIN) 80 Mg Tablet, 1 TAB PO DAILY for HIGH CHOLESTEROL, % 07/19/19 Furosemide (FUROSEMIDE) 20 Mg Tablet, 1 TAB PO DAILY for FLUID OVERLOAD, % 07/19/19 Losartan Potassium (LOSARTAN POTASSIUM) 100 Mg Tablet, 50 MG PO DAILY for HYPERTENSION, % 07/19/19 Fluoxetine Hcl (FLUOXETINE HCL) 20 Mg Capsule, 1 CAP PO DAILY for DEPRESSION, % 07/19/19 Pioglitazone Hcl (ACTOS) 30 Mg Tablet, 1 TAB PO DAILY for DIABETES, % 07/19/19 Glimepiride (GLIMEPIRIDE) 2 Mg Tablet, 1 TAB PO BID for DIABETES, TAB 07/19/19 Metoprolol Tartrate (METOPROLOL TARTRATE) 50 Mg Tablet, 1 TAB PO DAILY for HIGH BLOOD PRESSURE, % 07/19/19 Sitagliptin Phosphate (JANUVIA) 100 Mg Tablet, 1 TAB PO DAILY for DIABETES, % 07/19/19 UZMA DAWKINS MD Jul 26, 2019 10:59
[2019-07-26] MEDS ORDERED: predniSONE 10 MG TABLET PO ONE (11:00)
--- NOTE | 2019-07-26 12:02 | DS ---
DATE OF DISCHARGE: 07/26/2019 HOSPITAL COURSE: The patient is a 74-year-old male patient who was admitted with bilateral lower extremity cellulitis. He originally has fallen from bed and apparently was complaining of generalized weakness, chills, and malaise. He also has frequency and dysuria. His stated that he was going to the bathroom every 10-20 minutes the night before. After that, he used the urinal. In any case, surprisingly his urinalysis was unremarkable. We did actually send blood and urine for culture. His blood culture has grown Gram-positive cocci, identified as Staphylococcus hominis sensitive to oxacillin. He was on both vancomycin and Zosyn. Unfortunately, he developed a pruritic skin rash, and therefore, we discontinued both of them, and started him on IV ceftriaxone as per Infectious Disease's recommendation. We will also start him on a Medrol Dosepak as well as Benadryl for his pruritic skin rash. PHYSICAL EXAMINATION: GENERAL: When I examined him this morning, he was sitting comfortably on the chair in no apparent respiratory distress. No pallor, jaundice, cyanosis, or thyromegaly. No jugular venous distention. No limb edema. VITAL SIGNS: His heart rate was 64, blood pressure was 114/64, temperature was 98.7, respiratory rate was 92, and oxygen saturation was 20. HEAD, EYES, EARS, NOSE, AND THROAT: Normocephalic, atraumatic. NECK: Supple. HEART: Showed normal first and second heart sounds with no gallop, rub, or murmur. CHEST: Clear to auscultation. No crepitation or rhonchi. ABDOMEN: Distended, soft, and nontender. No guarding or rigidity. No organomegaly. All hernial orifices intact. Bowel sounds normal. NEUROLOGIC: He is awake, alert, and somewhat anxious today, but otherwise all his cranial nerves are intact. He moves extremities without difficulty. He ambulates with a walker. He has an indwelling Virgen catheter. LABORATORY DATA: His most recent lab work as of yesterday showed a white cell count of 6900, hemoglobin 14, hematocrit 42, MCV 95, and platelet count of 136,000. His serum sodium was 139, potassium 4, chloride 103, bicarbonate 27, anion gap of 9, BUN 14, creatinine 1, estimated GFR was 72 mL per minute, his glucose 181, calcium was 9. Total bilirubin, AST, ALT, alkaline phosphatase were normal. Total protein was 7.2, albumin was 2.6. Urinalysis showed the urine was nataliia, hazy with a pH of 6.5, specific gravity of 1.025. There was a large amount of protein, small amount of glucose, trace of ketones, and moderate amount of blood. It was negative for nitrite and leukocyte esterase. There were no rbc's, 1-4 wbc's, and no bacteria. His toxic screen was unremarkable. His Clostridium difficile toxins were negative. Influenza A and B and group B Streptococcus were all negative. His blood cultures showed growth of Staphylococcus hominis sensitive to oxacillin and susceptible to penicillin, a stable penicillin beta-lactam combination agent, oral cefepime as well as parenteral cefepime and carbapenem. DISCHARGE MEDICATIONS: The patient was discharged to [facility] to continue the IV antibiotic in the form of ceftriaxone 1 g IV daily for 10 days. Continue Tylenol 1000 mg every 6 hours for pain, aspirin 81 mg once a day, fluoxetine 20 mg daily, furosemide 20 mg daily, glimepiride 2 mg twice a day, losartan potassium 50 mg daily, magnesium oxide 500 mg daily, metoprolol tartrate 25 mg twice a day as well as mometasone furoate Elocon cream applied topically for his legs, multivitamin 1 tablet once a day, omega-3 fatty acid 1000 once a day, pioglitazone 30 mg once a day, potassium chloride 10 mEq once a day, simvastatin 80 mg at bedtime, and sitagliptin phosphate for Januvia 100 mg daily. FINAL DISCHARGE DIAGNOSES: 1. Staphylococcus hominis bacteremia sensitive to all cephalosporin. He was discharged to continue on IV ceftriaxone. 2. Bilateral lower extremity cellulitis. 3. The patient has developed multiple ventricular ectopic beats for which he was started on metoprolol 25 mg twice a day. 4. Morbid obesity. 5. Hyperlipidemia. 6. Type 2 diabetes mellitus, seems to be reasonably controlled. 7. Obstructive sleep apnea, on CPAP. 8. Benign prostatic hypertrophy with bladder outlet obstruction for which he has an indwelling Virgen catheter. UZMA DAWKINS MD DR: RAJWINDER/juan JOB#: [id number] / [id number]
== END 2019-07-26 16:10 | DRG 602 ==
LOC: ER 06:42 → 1 SOUTH 11:05
PROVIDERS: ADMIT Internal Medicine; ATTEND Internal Medicine
PROC: 06HY33Z Insertion of Infusion Device into Lower Vein, Percutaneous Approach (ICD-10-PCS; principal; 2019-07-24)
DX: L03.116 Cellulitis of left lower limb (principal); E43 Unspecified severe protein-calorie malnutrition; I50.33 Acute on chronic diastolic (congestive) heart failure; E87.2 Acidosis; Z68.44 Body mass index [BMI] 60.0-69.9, adult; I24.8 Other forms of acute ischemic heart disease; N13.8 Other obstructive and reflux uropathy; R78.81 Bacteremia; I11.0 Hypertensive heart disease with heart failure; L03.115 Cellulitis of right lower limb; R30.0 Dysuria; E78.5 Hyperlipidemia, unspecified; M15.9 Polyosteoarthritis, unspecified; M10.9 Gout, unspecified; G62.9 Polyneuropathy, unspecified; G47.33 Obstructive sleep apnea (adult) (pediatric); E66.01 Morbid (severe) obesity due to excess calories; I49.3 Ventricular premature depolarization; B95.7 Other staphylococcus as the cause of diseases classified elsewhere; B96.89 Other specified bacterial agents as the cause of diseases classified elsewhere; H54.8 Legal blindness, as defined in USA; I48.91 Unspecified atrial fibrillation; Z96.653 Presence of artificial knee joint, bilateral; G47.00 Insomnia, unspecified; L29.9 Pruritus, unspecified; N40.1 Benign prostatic hyperplasia with lower urinary tract symptoms; W06.XXXA Fall from bed, initial encounter; Z82.49 Family history of ischemic heart disease and other diseases of the circulatory system; Z91.19 Patient's noncompliance with other medical treatment and regimen; Z98.41 Cataract extraction status, right eye; Z98.42 Cataract extraction status, left eye; Z87.891 Personal history of nicotine dependence; Y93.89 Activity, other specified; Y92.89 Other specified places as the place of occurrence of the external cause; Y99.8 Other external cause status
CPT/HCPCS: 99285; C8929; 36415; 36569; 71045; 80053; 80061; 80202; 81001; 82947; 83036; 83605; 83735; 83880; 84443; 84484; 85007; 85025; 85027; 85651; 86140; 87040; 87070; 87077; 87205; 87493; 87804; 87880; 93005; J0696; J1815; J1940; J2543; J3370; J7040; J7512; Q0163; Q9956; 97110; 97116; 97530; 97535

== ENCOUNTER 2019-10-03 07:46 | Inpatient (IN) | payer MEDICARE ==
[~2019-10-03] VITALS: Ht 174 cm; Wt 206.4 kg
[~2019-10-03 07:46] MED LIST: ACET500T68 PO; ASPI81TA50 PO; CEFT1FRO2 IV; FLUO20CA19 PO; FURO20TA3 PO; GLIM2TAB7 PO; LOSA100T14 PO; MAGN500C10 PO; METO50TA6 PO; MOME15CR13 TP; MULT1TAB52 PO; OMEG1CAP38 PO; PIOG30TA41 PO; POTA10TA5 PO; SIMV80TA17 PO; SITA100T PO
--- NOTE | 2019-10-03 08:23 | PHYS DOC ---
Text Text DX : acute CHF plan : admit to medicine General Chief Complaint: DYSPNEA/RESPIRATOY DISTRESS Stated Complaint: SHORTNESS OF AIR Time Seen by MD: 07:54 Source: patient Exam Limitations: no limitations History of Present Illness Initial Comments 74 years old male with multiple medical problems including morbid obesity #2 hypertension #3 diabetes mellitus number for dyslipidemia presented to the emergency department with a one-week history of exertional shortness breath and orthopnea no chest pain no edema no cough no fever no chills no nausea no vomiting no diarrhea Allergies: Coded Allergies: No Known Drug Allergies (Unverified , 10/03/19) Past Medical History Medical History: high cholesterol, hypertension Surgical History: noncontributory Social History Smoker: non-smoker Drugs: none Review of Systems All Other Systems: Reviewed and Negative Physical Exam General Appearance: WD/WN, moderate distress HEENT: PERRL/EOMI, normal ENT inspection, TMs normal Respiratory: respiratory distress, decreased breath sounds, wheezing Cardiovascular: normal peripheral pulses, regular rate, rhythm, no edema Gastrointestinal: normal bowel sounds, non tender Extremities: normal range of motion, non-tender, normal inspection Neurologic/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
[2019-10-03 08:33] LABS: BASO % 1 % (0-3); EOS # 0.1 x10^3/uL (0.0-0.7); EOS % 2 % (0-3); HEMOGLOBIN 13.6 g/dL (13.0-17.5); LYMPH # 0.8 x10^3/uL (1.0-4.8); LYMPH % 21 % (24-48); MEAN CORPUSCULAR HEMOGLOBIN 33 pg (25-35); MEAN CORPUSCULAR HGB CONC 33 g/dL (31-37); MEAN CORPUSCULAR VOLUME 99 fL (79-100); MONO # 0.7 x10^3/uL (0.0-1.1); MONO % 17 % (0-9); NEUT # 2.4 x10^3uL (1.8-7.7); NEUT % 60 % (31-73); PLATELET COUNT 99 x10^3/uL (140-400); RED BLOOD COUNT 4.14 x10^6/uL (4.30-5.70); RED CELL DISTRIBUTION WIDTH 15.1 % (11.5-14.5)
[2019-10-03 08:44] LABS: CALCIUM 9.1 mg/dL (8.5-10.1); GFR 72.6; POTASSIUM 3.5 mmol/L (3.5-5.1)
--- NOTE | 2019-10-03 08:48 | RAD ---
EXAM: CHEST 1 VIEW History: Dyspnea COMPARISON: 07/19/2019 TECHNIQUE: Single portable radiograph of the chest FINDINGS: Mild cardiomegaly. Mild prominent appearing bilateral interstitial lung markings likely mild congestive changes. Bibasilar lung airspace opacity likely atelectasis or infiltrates. IMPRESSION: 1. Mild congestive changes. 2. Bibasilar lung airspace opacities likely atelectasis or infiltrates. Electronically signed by: Ajit Robert MD (10/03/2019 8:45 AM) [id number]
[2019-10-03 08:50] LABS: ALBUMIN 2.8 g/dL (3.4-5.0); ALBUMIN/GLOBULIN RATIO 0.7 (1.0-1.7); TOTAL BILIRUBIN 1.2 mg/dL (0.2-1.0); TOTAL PROTEIN 7.1 g/dL (6.4-8.2)
[2019-10-03] MEDS ORDERED: NITROGLYCERIN SUBLINGUAL 0.4 MG BOTTLE OF 25. SL PRN ×2 (09:00→09:15)
[2019-10-03] MEDS ORDERED: FUROSEMIDE 40 MG/4 ML VIAL IVP ONE (09:00)
[2019-10-03] MEDS ORDERED: IPRATRPIUM/ALBUTEROL 0.5/2.5MG 3 ML NEBU. ONE (09:43)
[2019-10-03] MEDS: IPRATRPIUM/ALBUTEROL 0.5/2.5MG 3 ML NEBU. NEB SCH ×4 (09:45→21:07)
[2019-10-03 11:27] VITALS: BP 128/66
[2019-10-03] MEDS ORDERED: FINA5TAB4 PO (11:57)
[2019-10-03] MEDS ORDERED: SERT50TA8 PO (11:57)
[2019-10-03] MEDS ORDERED: TAMS0.4C97 PO (14:04)
[2019-10-03] MEDS: FUROSEMIDE 40 MG/4 ML VIAL IVP SCH (14:26)
[2019-10-03] MEDS: POTASSIUM CHLORIDE 20 MEQ TABLET.ER. PO SCH ×2 (14:27→20:57)
[2019-10-03 14:28] VITALS: BP 112/65
--- NOTE | 2019-10-03 15:30 | HP ---
ADMIT DATE: 10/03/2019 HISTORY OF PRESENT ILLNESS: The patient is a 74-year-old male patient who came to the Emergency Room with a complaint of worsening shortness of breath, particularly on exertion. He complained of orthopnea, but denied any paroxysmal nocturnal dyspnea. Denied any chest pain. Denied any cough or phlegm. Denied any chills, rigors or fever. He was evaluated in the Emergency Room. His chest x-ray showed that he has mild cardiomegaly, mild prominent appearing bilateral interstitial lung marking, likely mild congestive heart failure. He also has bibasilar lung airspace opacity, likely atelectasis or infiltrate. His lab work showed that his white cell count was normal. His chemistry showed that his BNP was 990. His first set of cardiac enzymes showed troponin to be less than 0.017 and the patient was admitted for diagnosis of acute likely diastolic congestive heart failure. He was treated with IV Lasix as well as sublingual nitroglycerin and DuoNeb treatment and was admitted to continue the inpatient treatment with IV Lasix. We will do 2 more sets of cardiac enzymes to rule out myocardial infarction. He is legally blind in his right eye. He also complains of tinnitus and difficulty hearing. PAST MEDICAL HISTORY: Significant for hypertension, hyperlipidemia, type 2 diabetes. He is also known to have morbid obesity; obstructive sleep apnea, on CPAP. Has generalized osteoarthritis, gout, peripheral neuropathy affecting both hands and feet. 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 PAST SURGICAL HISTORY: Significant for bilateral total knee arthroplasty, periumbilical hernia repair, bilateral cataract extraction, tonsillectomy as well as colonoscopy. ALLERGIES: HE IS ALLERGIC TO MICKY INHIBITORS HE DEVELOPED ANGIONEUROTIC EDEMA. FAMILY HISTORY: Noncontributory. SOCIAL HISTORY: He is for the last 56 years. He lives at home with his . He is a former smoker. He does not drink alcohol or use recreational drugs. He is retired from [employer]. MEDICATIONS: He is currently on following medications: He is on simvastatin 80 mg at bedtime, omega-3 fatty acid 1 capsule once a day, metoprolol tartrate 50 mg once a day, losartan potassium 100 mg once a day. He is also on aspirin 81 mg once a day, acetaminophen 1000 mg every 8 hours, fluoxetine 20 mg once a day, sertraline 50 mg daily, potassium chloride 10 mEq once a day, furosemide 20 mg once a day, magnesium oxide 500 mg daily and glimepiride 2 mg twice a day, pioglitazone 30 mg once a day, mometasone furoate for Elocon applied topically daily, multivitamin 1 tablet once a day and finasteride 5 mg daily. REVIEW OF SYSTEMS: The patient denied any blurring of vision. Has bilateral cataract extraction, but denied any glaucoma or macular degeneration. Denied any earache. Denied any nosebleeds, stuffy nose or postnasal drip. Denied any sore throat, sore tongue, toothache, hoarseness of voice or difficulty swallowing. Denied any nausea, vomiting, diarrhea or constipation. Denied any hematemesis, melena or hematochezia. Denied any dysuria, frequency or hematuria. Denied any chest pain. Did complain of shortness of breath, orthopnea, but no paroxysmal nocturnal dyspnea. Denied any cough, phlegm or hemoptysis. Denied any chills, rigors or fever. PHYSICAL EXAMINATION: GENERAL: On arrival to the Emergency Room, the patient was slightly tachypneic, somewhat pale, but no jaundice, cyanosis or thyromegaly. No jugular venous distention. No limb edema. VITAL SIGNS: His heart rate was 71, blood pressure was 139/46, temperature was 97.8, respiratory rate was 18 and oxygen saturation was 96% on 6 liters of oxygen. His oxygen drops down to 84% on room air. HEAD, EYES, EARS, NOSE AND THROAT: Showed normocephalic, atraumatic. NECK: Supple. HEART: Showed normal first and second heart sounds with no gallop, rub or murmur. CHEST: Shows central trachea, equal bilateral expansion, air entry, vesicular sounds with bilateral basal crepitation. I could not appreciate any rhonchi. ABDOMEN: Distended, soft, nontender. NEUROLOGIC: He was awake, alert, responding appropriately. All cranial nerves intact. EXTREMITIES: He moves extremities without difficulty, although apparently he is mostly bed bound, chair bound. LABORATORY DATA: His lab work on arrival showed white cell count of 4000, hemoglobin 13.6, hematocrit 41, MCV 99, and platelet count of 99,000. His chemistry showed a serum sodium 140, potassium 3.5, chloride 106, bicarbonate 28, anion gap of 6, BUN 19, creatinine 1, estimated GFR was 72 mL per minute. His glucose was 95, calcium was 9.1. Total bilirubin was 1.2. AST, ALT, alkaline phosphatase were normal. His first set of cardiac enzymes showed troponin to be less than 0.017. Beta natriuretic peptide was 990. Total protein was 7.1, albumin was 2.8. His prothrombin time, INR was normal. RADIOGRAPHIC DATA: His chest x-ray showed the patient has mild cardiomegaly, mild prominent appearing bilateral interstitial lung marking, likely mild congestive heart failure changes. He has also bilateral lung airspace opacity, likely atelectasis or infiltrate. ASSESSMENT AND PLAN: The patient was admitted with acute on chronic diastolic congestive heart failure, who was treated with intravenous Lasix. I will reconcile his medication and obviously we have contacted his primary care physician to make sure that medication list is accurate. We will do 2 more sets of cardiac enzyme. We will treat him with intravenous Lasix twice a day as well as potassium. We will replenish his potassium and also place a Virgen catheter. UZMA DAWKINS MD DR: RAJWINDER/juan JOB#: [id number] / [id number]
[2019-10-03] MEDS ORDERED: PIOG30TA41 PO (18:05)
[2019-10-03] MEDS ORDERED: MUPI15CR8 TP (18:07)
[2019-10-03 19:25] VITALS: BP 121/64
[2019-10-03] MEDS: NYSTATIN TOPICAL POWDER 15GM BOTTLE. TP SCH (20:56)
[2019-10-03] MEDS: SERTRALINE 50 MG TABLET. PO SCH (20:57)
[2019-10-03] MEDS: GLIMEPIRIDE 2 MG TABLET PO SCH (20:57)
[2019-10-04] MEDS: IPRATRPIUM/ALBUTEROL 0.5/2.5MG 3 ML NEBU. NEB SCH ×2 (05:32→09:15)
--- NOTE | 2019-10-04 06:07 | EKG ---
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
[2019-10-04 07:39] VITALS: BP 113/64
[2019-10-04] MEDS: FUROSEMIDE 40 MG/4 ML VIAL IVP SCH ×2 (08:11→14:07)
[2019-10-04] MEDS: PIOGLITAZONE 15 MG TABLET. PO SCH (08:11)
[2019-10-04] MEDS: NYSTATIN TOPICAL POWDER 15GM BOTTLE. TP SCH ×2 (08:11→20:19)
[2019-10-04] MEDS: TRIAMCINOLONE ACETONIDE 0.1% TOPICAL CREAM 15GM TUBE. TP SCH (08:11)
[2019-10-04] MEDS: POTASSIUM CHLORIDE 20 MEQ TABLET.ER. PO SCH ×3 (08:12→20:19)
[2019-10-04] MEDS: FINASTERIDE 5 MG TABLET PO SCH (08:12)
[2019-10-04] MEDS: GLIMEPIRIDE 2 MG TABLET PO SCH ×2 (08:12→20:19)
[2019-10-04] MEDS: LOSARTAN 50 MG TABLET. PO SCH (08:12)
[2019-10-04] MEDS: METOPROLOL TART IMMED RELEASE 50 MG TABLET PO SCH (08:12)
[2019-10-04] MEDS: LINAGLIPTIN 5 MG TABLET PO SCH (08:13)
[2019-10-04] MEDS: TAMSULOSIN 0.4 MG CAP.ER.24H. PO SCH (08:13)
[2019-10-04] MEDS: SIMVASTATIN 40 MG TABLET. PO SCH (08:13)
[2019-10-04] MEDS ORDERED: SERTRALINE 50 MG TABLET. PO SCH (09:00)
[2019-10-04 10:54] VITALS: BP 133/71
[2019-10-04 14:24] VITALS: BP 114/59
[2019-10-04 14:27] LABS: CALCIUM 8.7 mg/dL (8.5-10.1); GFR 72.6; POTASSIUM 3.8 mmol/L (3.5-5.1)
--- NOTE | 2019-10-04 18:57 | PN ---
DATE: 10/04/2019 SUBJECTIVE: The patient came yesterday with worsening shortness of breath as well as orthopnea, but denied any paroxysmal nocturnal dyspnea. Denied any chest pain, denied any cough, phlegm. Denied any chills, rigors, or fever. He was diagnosed with [id number] diastolic congestive heart failure. His first troponin was less than 0.017 and he was admitted to be treated with IV Lasix. The patient stated that he is feeling much improved. He is now able to stand and walk for short distance without extreme shortness of breath. He has 3 sets of cardiac enzymes that trended up and down. PHYSICAL EXAMINATION: GENERAL: When I examined him this morning, he was sitting at the edge of the bed comfortably in no apparent respiratory distress. No pallor, jaundice, or cyanosis. No lymphadenopathy, no thyromegaly. No jugular venous distention, but mild bilateral lower limb edema. VITAL SIGNS: His heart rate was 77, blood pressure was 133/71, temperature was 98.4, respiratory rate 20, and oxygen saturation was 93% on 5 liters of oxygen. HEAD, EYES, EARS, NOSE, AND THROAT: Normocephalic, atraumatic. NECK: Supple. HEART: Showed normal first and second heart sounds. No gallop or murmur. CHEST: Shows central trachea, equally reduced expansion, reduced air entry, vesicular sounds with bilateral basal crepitation posteriorly, much less than yesterday. I could not appreciate any rhonchi. ABDOMEN: Markedly distended, soft, nontender. NEUROLOGIC: He is awake, alert, responding appropriately. All cranial nerves are intact. He moves extremities without difficulty. He ambulates with a walker. His intake was 540, output was 2725. LABORATORY DATA: He has no lab work done this morning. He has 3 sets of cardiac enzymes that showed the troponin to be less than 0.017. Second one was 0.024 and third once 0.018. His BNP was 990. PLAN: I will arrange for him to repeat his BMP today to make sure that his potassium is within acceptable range, and meanwhile, we will continue with IV Lasix twice a day, monitor his intake and output closely and also daily. DICTATION ENDS HERE UZMA DAWKINS MD DR: RAJWINDER/juan JOB#: [id number] / [id number]
[2019-10-04 19:57] VITALS: BP 148/83
[2019-10-04] MEDS: SERTRALINE 50 MG TABLET. PO SCH (20:19)
[2019-10-04 22:43] VITALS: BP 110/60
[2019-10-05 06:02] VITALS: BP 126/69
[2019-10-05 07:10] LABS: ALBUMIN 2.6 g/dL (3.4-5.0); ALBUMIN/GLOBULIN RATIO 0.7 (1.0-1.7); CALCIUM 8.8 mg/dL (8.5-10.1); CREATININE 0.8 mg/dL (0.7-1.3); MAGNESIUM 1.4 mg/dL (1.8-2.4); POTASSIUM 3.4 mmol/L (3.5-5.1); TOTAL BILIRUBIN 1.3 mg/dL (0.2-1.0); TOTAL PROTEIN 6.5 g/dL (6.4-8.2)
[2019-10-05] MEDS: GLIMEPIRIDE 2 MG TABLET PO SCH ×2 (08:33→17:10)
[2019-10-05] MEDS: LOSARTAN 50 MG TABLET. PO SCH (08:33)
[2019-10-05] MEDS: POTASSIUM CHLORIDE 20 MEQ TABLET.ER. PO SCH ×3 (08:33→20:33)
[2019-10-05] MEDS: FINASTERIDE 5 MG TABLET PO SCH (08:33)
[2019-10-05] MEDS: PIOGLITAZONE 15 MG TABLET. PO SCH (08:33)
[2019-10-05] MEDS: TAMSULOSIN 0.4 MG CAP.ER.24H. PO SCH (08:33)
[2019-10-05] MEDS: LINAGLIPTIN 5 MG TABLET PO SCH (08:34)
[2019-10-05] MEDS: TRIAMCINOLONE ACETONIDE 0.1% TOPICAL CREAM 15GM TUBE. TP SCH (08:34)
[2019-10-05] MEDS: METOPROLOL TART IMMED RELEASE 50 MG TABLET PO SCH (08:34)
[2019-10-05] MEDS: FUROSEMIDE 40 MG/4 ML VIAL IVP SCH ×2 (08:34→13:22)
[2019-10-05] MEDS: SIMVASTATIN 40 MG TABLET. PO SCH (08:34)
[2019-10-05] MEDS: NYSTATIN TOPICAL POWDER 15GM BOTTLE. TP SCH ×2 (08:34→20:33)
--- NOTE | 2019-10-05 10:41 | PN ---
DATE: 10/05/2019 SUBJECTIVE: The patient is sitting in his chair comfortably, in no apparent distress. His oxygen saturation on room air is down to 85, however, on 3 liters of oxygen is up to 96%. He denied any chest pain. He continues obviously to have shortness of breath on exertion. PHYSICAL EXAMINATION: GENERAL: When I examined him today, he looked well and was clearly in no apparent respiratory distress. No pallor, jaundice, cyanosis or thyromegaly. No jugular venous distention. Chronic bilateral venous stasis. VITAL SIGNS: Her heart rate was 68, blood pressure was 126/69, temperature was 98.3, respiratory rate 20 and oxygen saturation was 95% on 4 liters by nasal cannula. HEAD, EYES, EARS, NOSE AND THROAT: Showed normocephalic, atraumatic. NECK: Supple. HEART: Showed normal first and second heart sounds with no gallop, rub or murmur. CHEST: Clear to auscultation. No crepitation or rhonchi. ABDOMEN: Distended, soft, nontender. NEUROLOGIC: He was awake, alert, responding appropriately. All cranial nerves are intact. He ambulates with a walker. His intake was 540, output was 2725. LABORATORY DATA: As of this morning showed serum sodium 142, potassium 3.4, chloride 104, bicarbonate 32, anion gap of 6, BUN 15, creatinine 0.8, estimated GFR was 94 mL per minute. His glucose was 60, calcium was 8.8, magnesium was 1.4. Total bilirubin, AST, ALT, alkaline phosphatase slightly elevated. Total protein was 6.5, albumin was 2.6. ASSESSMENT: 1. Acute on chronic diastolic congestive heart failure, clinically improving. 2. Hypertension, well controlled. 3. Hyperlipidemia. 4. Type 2 diabetes mellitus, seems to be extremely controlled. 5. Morbid obesity, obstructive sleep apnea, on CPAP. 6. Generalized osteoarthritis. 7. Gout. 8. Peripheral neuropathy affecting both hands and feet. PLAN: My plan is to increase his potassium to 40 mEq 3 times a day. I cut down his Amaryl to 1 mg twice a day. We will repeat his labs tomorrow. UZMA DAWKINS MD DR: RAJWINDER/juan JOB#: [id number] / [id number]
[2019-10-05] MEDS ORDERED: MAGNESIUM SULFATE 2GM 50 ML IV ONE (11:00)
[2019-10-05] MEDS: MAGNESIUM OXIDE 400 MG TABLET PO SCH ×2 (13:20→20:33)
[2019-10-05 19:59] VITALS: BP 128/81
[2019-10-05] MEDS: SERTRALINE 50 MG TABLET. PO SCH (20:33)
[2019-10-05 23:19] VITALS: BP 114/64
[2019-10-06 06:10] VITALS: BP 114/62
[2019-10-06 06:57] LABS: CALCIUM 8.8 mg/dL (8.5-10.1); CREATININE 0.9 mg/dL (0.7-1.3); POTASSIUM 3.8 mmol/L (3.5-5.1)
[2019-10-06] MEDS: FUROSEMIDE 40 MG/4 ML VIAL IVP SCH ×2 (07:42→13:04)
[2019-10-06] MEDS: FINASTERIDE 5 MG TABLET PO SCH (07:43)
[2019-10-06] MEDS: TAMSULOSIN 0.4 MG CAP.ER.24H. PO SCH (07:43)
[2019-10-06] MEDS: LINAGLIPTIN 5 MG TABLET PO SCH (07:43)
[2019-10-06] MEDS: MAGNESIUM OXIDE 400 MG TABLET PO SCH ×2 (07:43→13:04)
[2019-10-06] MEDS: METOPROLOL TART IMMED RELEASE 50 MG TABLET PO SCH (07:43)
[2019-10-06] MEDS: LOSARTAN 50 MG TABLET. PO SCH (07:43)
[2019-10-06] MEDS: SIMVASTATIN 40 MG TABLET. PO SCH (07:43)
[2019-10-06] MEDS: TRIAMCINOLONE ACETONIDE 0.1% TOPICAL CREAM 15GM TUBE. TP SCH (07:45)
[2019-10-06] MEDS: NYSTATIN TOPICAL POWDER 15GM BOTTLE. TP SCH (07:45)
[2019-10-06] MEDS: POTASSIUM CHLORIDE 20 MEQ TABLET.ER. PO SCH ×2 (07:47→13:04)
[2019-10-06] MEDS: GLIMEPIRIDE 2 MG TABLET PO SCH (07:47)
[2019-10-06] MEDS: PIOGLITAZONE 15 MG TABLET. PO SCH (09:00)
[2019-10-06 11:38] VITALS: BP 112/64
[2019-10-06] MEDS ORDERED: FURO40TA4 PO (13:48)
[2019-10-06] MEDS ORDERED: MAGN200T7 PO (13:56)
[2019-10-06] MEDS ORDERED: GLIM1TAB PO (13:56)
[2019-10-06] MEDS ORDERED: POTA20TA4 PO (13:56)
--- NOTE | 2019-10-06 20:21 | DS ---
DATE OF DISCHARGE: 10/06/2019 HOSPITAL COURSE: The patient is sitting comfortably in his chair, in no apparent distress. He is awake, alert. He is back to his baseline. He has been able to walk from his bed to the bathroom and back. No shortness of breath. No chest pain. His oxygen requirement is down to only 1 liter. His potassium and magnesium has been replenished. PHYSICAL EXAMINATION: GENERAL: When I saw him today, he looked well and was clearly in no apparent respiratory distress. No pallor, jaundice, cyanosis or thyromegaly. No jugular venous distention. Mild bilateral lower extremity edema has improved. HEAD, EYES, EARS, NOSE AND THROAT: Showed normocephalic, atraumatic. NECK: Supple. HEART: Showed normal first and second heart sounds. No gallop or murmur. CHEST: Clear to auscultation. No crepitation or rhonchi. ABDOMEN: Markedly distended, soft, nontender. NEUROLOGIC: He was awake, alert, responding appropriately. All cranial nerves are intact. He moves extremities without difficulty, ambulates with a walker. His intake over the last 24 hours was 540, output was 5450. LABORATORY DATA: This morning showed a serum sodium 140, potassium 3.8, chloride 103, bicarbonate 33, anion gap of 4, BUN 18, creatinine 0.9, estimated GFR was 82 mL per minute. His glucose was up to 99. Calcium was 8.8, magnesium was 1.5 from 1.4. His white cell count was 4000, hemoglobin 13.6, hematocrit 41, MCV 99, and platelet count of 99,000. DISCHARGE MEDICATIONS: The patient will be discharged home to continue on furosemide 40 mg once a day, glimepiride 1 mg twice a day, magnesium oxide 400 mg 3 times a day, potassium chloride 20 mEq twice a day. He should continue on finasteride 5 mg, losartan potassium 50 mg once a day, metoprolol tartrate 50 mg once a day, mometasone furoate for Elocon cream apply topically twice a day to both legs. Mupirocin 1 application 3 times a day, pioglitazone for Actos 30 mg once a day, sertraline 50 mg once a day, simvastatin 80 mg tablet once a day, sitagliptin phosphate for Januvia 100 mg once a day, and tamsulosin for Flomax 0.4 mg daily. FINAL DISCHARGE DIAGNOSES: 1. Acute on chronic diastolic congestive heart failure, clinically much improved. 2. Hypertension, well controlled. 3. Hyperlipidemia. 4. Type 2 diabetes, seems to be well controlled. 5. Morbid obesity, obstructive sleep apnea, on CPAP. 6. Generalized osteoarthritis. 7. Gout. 8. Peripheral neuropathy affecting both hands and feet. 9. Hypokalemia. 10. Hypomagnesemia. UZMA DAWKINS MD DR: RAJWINDER/juan JOB#: [id number] / [id number]
== END 2019-10-06 16:03 | disposition home or self-care (01) | DRG 291 ==
LOC: ER 07:46 → 1 SOUTH 09:00
PROVIDERS: ADMIT Internal Medicine; ATTEND Internal Medicine
PROC: 5A09357 Assistance with Respiratory Ventilation, Less than 24 Consecutive Hours, Continuous Positive Airway Pressure (ICD-10-PCS; principal; 2019-10-03)
PROC: 5A09357 Assistance with Respiratory Ventilation, Less than 24 Consecutive Hours, Continuous Positive Airway Pressure (ICD-10-PCS; 2019-10-04)
PROC: 5A09357 Assistance with Respiratory Ventilation, Less than 24 Consecutive Hours, Continuous Positive Airway Pressure (ICD-10-PCS; 2019-10-06)
DX: I11.0 Hypertensive heart disease with heart failure (principal); E43 Unspecified severe protein-calorie malnutrition; Z68.44 Body mass index [BMI] 60.0-69.9, adult; I50.33 Acute on chronic diastolic (congestive) heart failure; E66.01 Morbid (severe) obesity due to excess calories; E78.5 Hyperlipidemia, unspecified; E78.00 Pure hypercholesterolemia, unspecified; H54.8 Legal blindness, as defined in USA; M10.9 Gout, unspecified; G47.33 Obstructive sleep apnea (adult) (pediatric); M15.9 Polyosteoarthritis, unspecified; E11.42 Type 2 diabetes mellitus with diabetic polyneuropathy; Z96.653 Presence of artificial knee joint, bilateral; E83.42 Hypomagnesemia; E87.6 Hypokalemia; Z98.42 Cataract extraction status, left eye; Z98.41 Cataract extraction status, right eye; Z88.8 Allergy status to other drugs, medicaments and biological substances; Z87.891 Personal history of nicotine dependence
CPT/HCPCS: 36415; 71045; 80048; 80053; 82947; 83735; 83880; 84484; 85025; 85610; 93005; 94640; 94760; 96374; J1940; J3475; J7620; 99285-25

== ENCOUNTER 2019-10-27 16:41 | Inpatient (IN) | payer MEDICARE ==
[~2019-10-27] VITALS: Ht 175.3 cm; Wt 210.4 kg
[~2019-10-27 16:41] MED LIST changes: +FINA5TAB4 PO; +FURO40TA4 PO; +GLIM1TAB PO; +MAGN200T7 PO; +MUPI15CR8 TP; +POTA20TA4 PO; +SERT50TA8 PO; +TAMS0.4C97 PO
--- NOTE | 2019-10-27 17:34 | PHYS DOC ---
Past History Past Medical History: CHF, Diabetes, High Cholesterol, Hypertension, Other Additional Past Medical Histor: sleep apnea (STEFANO PRABHAKAR DO) Past Surgical History: Other Additional Past Surgical Histo: bilat knee replacement; left toe bone removed; abd hernia repair (STEFANO PRABHAKAR DO) Alcohol Use: None Drug Use: None (STEFANO PRABHAKAR DO) Adult General Chief Complaint Chief Complaint: WEAKNESS/GENERALIZED HPI HPI 74 year old male presents with increased weakness and decreased decreased exercise tolerance. He is morbidly obese. He was recently placed on oxygen about a month ago. He left the hospital on 2 L, but has been on 3-4 home. He denies shortness of breath or chest pain. He just cannot get up and down out of the chair like he usually does. He is concerned that his CHF may have worsened. He does not weigh himself every day. He denies fever or chills. (STEFANO PRABHAKAR DO) Review of Systems Review of Systems Constitutional: Increased fatigue. Denies fever or chills [] Eyes: Denies change in visual acuity, redness, or eye pain [] HENT: Denies nasal congestion or sore throat [] Respiratory: Denies cough or shortness of breath [] Cardiovascular: No additional information not addressed in HPI [] GI: Denies abdominal pain, nausea, vomiting, bloody stools or diarrhea [] : Denies dysuria or hematuria [] Musculoskeletal: Denies back pain or joint pain [] Integument: Denies rash or skin lesions [] Neurologic: Denies headache, focal weakness or sensory changes [] Endocrine: Denies polyuria or polydipsia [] All other systems were reviewed and found to be within normal limits, except as documented in this note. (STEFANO PRABHAKAR DO) Allergies Allergies Allergies Coded Allergies Type Severity Reaction Last Updated Verified piperacillin Allergy Mild 10/03/19 Yes tazobactam Allergy Mild 10/03/19 Yes vancomycin Allergy Mild 10/03/19 Yes MICKY Inhibitors Allergy Unknown 10/03/19 Yes (STEFANO PRABHAKAR DO) Physical Exam Physical Exam Constitutional: Well developed, morbidly obese, well nourished, no acute distress, non-toxic appearance. [] HENT: Normocephalic, atraumatic, bilateral external ears normal, oropharynx moist, no oral exudates, nose normal. [] Eyes: PERRLA, EOMI, conjunctiva normal, no discharge. [] Neck: Normal range of motion, no tenderness, supple, no stridor. [] Cardiovascular:Heart rate regular rhythm, no murmur [] Lungs & Thorax: Bilateral breath sounds bilaterally, on 2 L of oxygen by nasal cannula.[] Abdomen: Bowel sounds normal, rotund, no tenderness, no masses, no pulsatile masses. [] Skin: Warm, dry, no erythema, no rash. [] Back: No tenderness, no CVA tenderness. [] Extremities: No tenderness, no cyanosis, no clubbing, ROM intact, no edema. [] Neurologic: Alert and oriented X 3, normal motor function, normal sensory function, no focal deficits noted. [] Psychologic: Affect normal, judgement normal, mood normal. [] (STEFANO PRABHAKAR DO) Current Patient Data Vital Signs Vital Signs Date Time Temp Pulse Resp B/P (MAP) Pulse Ox O2 Delivery O2 Flow Rate FiO2 10/27/19 16:55 97.4 61 18 95 Room Air (STEFANO PRABHAKAR DO) EKG EKG [] (STEFANO PRABHAKAR DO) EKG EKG shows a normal sinus rhythm with a rate of 58 ischemic changes noted no STEMI interpreted by me the time of encounter (WIN GUTIÉRREZ MD) Radiology/Procedures Radiology/Procedures [] (STEFANO PRABHAKAR DO) Impressions: HISTORY: Short of breath AP view was taken of the chest. The heart is enlarged. Patient's size limits evaluation. There is increased density in the right lung base which is probably superimposed soft tissues although pleural effusion or infiltrate would be difficult to exclude. Patient is rotated. IMPRESSION: 1. Cardiomegaly. 2. Limited evaluation of the lung bases due to abdominal fat. Electronically signed by: Phan Palacios MD (10/27/2019 5:53 PM) [id number] DICTATED AND SIGNED BY: PHAN PALACIOS MD DATE: 10/27/19 175 CC: STEFANO PRABHAKAR DO; ALLI ROMERO MD ~ (WIN GUTIÉRREZ MD) Course & Med Decision Making Course & Med Decision Making Pertinent Labs and Imaging studies reviewed. (See chart for details) The patient's workup is pending. I'm signing the patient out to Dr. Mejia at 1800. He will determine the patient's final disposition. [] (STEFANO PRABHAKAR DO) Course & Med Decision Making Labs reviewed are went back and re-eval at the patient he has gained 23 pounds since his last documented weight in our system. He appears fairly short of breat h when he lies back in bed. Chest x-ray showed no obvious abnormality although is a limited study BNP is in the mid range this is not that helpful since he is morbidly obese. Troponin negative patient has a borderline urinalysis did give a dose of Macrobid because they thought the urine smelled malodorous at home. I ordered a dose of IV Lasix and think he is skin significant weight secondary to his diastolic heart failure and I spoke with Dr. Solomon for admission at 8:30 PM family strongly prefers this to he is too weak to get around (WIN GUTIÉRREZ MD) Dragon Disclaimer Dragon Disclaimer This electronic medical record was generated, in whole or in part, using a voice recognition dictation system. (STEFANO PRABHAKAR DO) Departure Departure: Impression: Primary Impression: Acute on chronic diastolic CHF (congestive heart failure) Disposition: ADMITTED INPATIENT Admitting Physician: Lizeth Solomon (WIN GUTIÉRREZ MD) Condition: STABLE Referrals: ALLI ROMERO MD (PCP) STEFANO PRABHAKAR DO Oct 27, 2019 17:34 WIN GUTIÉRREZ MD Oct 27, 2019 18:57
--- NOTE | 2019-10-27 17:56 | RAD ---
AP portable chest. HISTORY: Short of breath AP view was taken of the chest. The heart is enlarged. Patient's size limits evaluation. There is increased density in the right lung base which is probably superimposed soft tissues although pleural effusion or infiltrate would be difficult to exclude. Patient is rotated. IMPRESSION: 1. Cardiomegaly. 2. Limited evaluation of the lung bases due to abdominal fat. Electronically signed by: Phan Palacios MD (10/27/2019 5:53 PM) [facility]
[2019-10-27 18:00] LABS: BILIRUBIN,URINE NEG (NEG); CLARITY,URINE HAZY; COLOR,URINE AMBER; GLUCOSE,URINE NEG (NEG)
[2019-10-27 18:01] LABS: BACTERIA,URINE FEW /HPF (0-FEW); NITRITE,URINE NEG (NEG); RBC,URINE 0 /HPF (0-2); SQUAMOUS EPITHELIAL CELL,UR FEW /LPF
[2019-10-27 19:07] LABS: BASO % 1 % (0-3); EOS # 0.4 x10^3/uL (0.0-0.7); EOS % 9 % (0-3); HEMATOCRIT 40.4 % (39.0-53.0); HEMOGLOBIN 13.2 g/dL (13.0-17.5); LYMPH # 0.7 x10^3/uL (1.0-4.8); LYMPH % 17 % (24-48); MEAN CORPUSCULAR HEMOGLOBIN 33 pg (25-35); MEAN CORPUSCULAR HGB CONC 33 g/dL (31-37); MEAN CORPUSCULAR VOLUME 100 fL (79-100); MONO # 0.6 x10^3/uL (0.0-1.1); MONO % 15 % (0-9); NEUT # 2.4 x10^3uL (1.8-7.7); NEUT % 58 % (31-73); PLATELET COUNT 110 x10^3/uL (140-400); RED BLOOD COUNT 4.04 x10^6/uL (4.30-5.70); RED CELL DISTRIBUTION WIDTH 14.7 % (11.5-14.5); WHITE BLOOD COUNT 4.2 x10^3/uL (4.0-11.0)
[2019-10-27 19:18] LABS: CALCIUM 9.1 mg/dL (8.5-10.1); CREATININE 1.1 mg/dL (0.7-1.3); GFR 65.1; POTASSIUM 4.5 mmol/L (3.5-5.1)
[2019-10-27 19:31] LABS: ALBUMIN 2.9 g/dL (3.4-5.0); ALBUMIN/GLOBULIN RATIO 0.7 (1.0-1.7); TOTAL BILIRUBIN 0.8 mg/dL (0.2-1.0); TOTAL PROTEIN 7.3 g/dL (6.4-8.2)
--- NOTE | 2019-10-27 19:52 | EKG ---
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
[2019-10-27] MEDS ORDERED: FUROSEMIDE 40 MG/4 ML VIAL IVP ONE (20:45)
[2019-10-27] MEDS ORDERED: NITROFURANTOIN MONOHYD/M-CRYST 100 MG CAPSULE. PO ONE (20:45)
[2019-10-27] MEDS ORDERED: FINA5TAB4 PO (21:02)
[2019-10-27] MEDS ORDERED: CLON1TAB PO (21:02)
--- NOTE | 2019-10-27 21:45 | NUR ---
Patient arrived to unit via EMS accompanied by family members. Patients VS obtained and are stable. Patient is oriented to unit and procedures. Patient is offered food and drink. Will continue to monitor.
[2019-10-27 21:56] VITALS: BP 125/70
[2019-10-28 05:59] VITALS: BP 109/58
[2019-10-28 06:13] LABS: CREATININE 0.9 mg/dL (0.7-1.3); POTASSIUM 3.9 mmol/L (3.5-5.1)
[2019-10-28] MEDS ORDERED: clonazePAM 1 MG TABLET PO PRN (07:45)
--- NOTE | 2019-10-28 07:46 | NUR ---
Continued home medication and ordered Lovenox injection for VTE prophalaxis per 's orders. Called pharmacy for dosage verification, will give 60 mg Lovenox injection BID as prescribed.
[2019-10-28] MEDS: MUPIROCIN 2% TOPICAL OINTMENT 22GM TUBE. TP SCH ×3 (08:30→20:38)
[2019-10-28] MEDS: SIMVASTATIN 40 MG TABLET. PO SCH (08:31)
[2019-10-28] MEDS: ENOXAPARIN ** NOTE DOSE ** SYRINGE SQ SCH ×2 (08:31→20:37)
[2019-10-28] MEDS: PIOGLITAZONE 15 MG TABLET. PO SCH (08:32)
[2019-10-28] MEDS: GLIMEPIRIDE 2 MG TABLET PO SCH ×2 (08:32→20:38)
[2019-10-28] MEDS: SERTRALINE 50 MG TABLET. PO SCH (08:33)
[2019-10-28] MEDS: METOPROLOL TART IMMED RELEASE 50 MG TABLET PO SCH (08:33)
[2019-10-28] MEDS: FINASTERIDE 5 MG TABLET PO SCH (08:33)
[2019-10-28] MEDS: LINAGLIPTIN 5 MG TABLET PO SCH (08:33)
[2019-10-28] MEDS: LOSARTAN 50 MG TABLET. PO SCH (08:33)
[2019-10-28] MEDS: MAGNESIUM OXIDE 400 MG TABLET PO SCH ×3 (08:33→20:37)
[2019-10-28] MEDS: TAMSULOSIN 0.4 MG CAP.ER.24H. PO SCH (08:33)
[2019-10-28] MEDS: FLUOCINONIDE 0.05% TP SCH (08:34)
[2019-10-28] MEDS ORDERED: POTASSIUM CHLORIDE 20 MEQ TABLET.ER. PO SCH (09:00)
[2019-10-28] MEDS ORDERED: FUROSEMIDE 40 MG TABLET PO SCH (09:00)
[2019-10-28 11:20] VITALS: BP 105/58
--- NOTE | 2019-10-28 12:03 | NUR ---
wound care patient seen per wound care consult. see wound assessment. patient has a right great toe intact blister, DFU, the wound was cleaned and measured and skin prep applied, recommendations of applying every other day. patient has a right plantar foot DFU, the wound was cleaned and redressed with Iodoflex with a foam dressing, recommendations of changing every patient stated he had no other wounds. notified RN about the POC and wound care will continue to f/u.
[2019-10-28] MEDS: FUROSEMIDE 40 MG/4 ML VIAL IVP SCH (14:22)
[2019-10-28] MEDS: POTASSIUM CHLORIDE 20 MEQ TABLET.ER. PO SCH ×2 (14:22→20:37)
[2019-10-28 15:12] LABS: BGAS PH 7.35 (7.35-7.46)
--- NOTE | 2019-10-28 15:12 | HP ---
ADMIT DATE: 10/27/2019 HISTORY OF PRESENT ILLNESS: The patient is a 74-year-old male patient who was brought to the Emergency Room yesterday with increased weakness and decreased exercise tolerance. He is morbidly obese. He was recently placed on oxygen about a month ago, he left the hospital on 2 liters, has been on 3-4 liters at home. He denies any shortness of breath or chest pain. He just cannot get up and down out of the chair like he usually does. He is concerned that his CHF has worsened. He does not weigh himself every day, but denies any fever or chills. He was extensively investigated in the Emergency Room and his lab work showed that his white cell count was normal. His chemistry showed that his beta-natriuretic peptide is only 508. Urinalysis was essentially unremarkable and his chest x-ray showed that heart is enlarged. The patient's size limits evaluation. There is increased density in the right lung base, which is probably superimposed soft tissue, although pleural effusion or infiltrate would be difficult to exclude. The patient was rotated and the patient was basically admitted with acute and chronic diastolic congestive heart failure, generalized weakness. He was treated with IV Lasix and was continued on his other medications, admitted for further evaluation and treatment. PAST MEDICAL HISTORY: Significant for hypertension, hyperlipidemia, type 2 diabetes mellitus. He is also known to have morbid obesity; obstructive sleep apnea, on CPAP; generalized osteoarthritis, gout, peripheral neuropathy affecting both hands and feet. 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 PAST SURGICAL HISTORY: Significant for bilateral total knee arthroplasty, periumbilical hernia repair, bilateral cataract extraction, tonsillectomy as well as colonoscopy. ALLERGIES: HE IS ALLERGIC TO MICKY INHIBITORS HE DEVELOPED ANGIONEUROTIC EDEMA. FAMILY HISTORY: Noncontributory. SOCIAL HISTORY: He is for the last 56 years. He lives at home with his . He is a former smoker. He does not drink alcohol or use recreational drugs. He is retired from [employer]. MEDICATIONS: He is currently on following medications: He is on tamsulosin 0.4 mg for Flomax daily, simvastatin 80 mg at bedtime, metoprolol tartrate 50 mg daily, losartan potassium 50 mg once a day, clonazepam 1 mg 3 times a day, sertraline 50 mg daily. He is on potassium chloride 20 mEq twice a day, furosemide 40 mg once a day, magnesium oxide 400 mg 3 times a day, sitagliptin phosphate 100 mg daily, glimepiride 1 mg twice a day, pioglitazone for Actos 30 mg once a day, Bactroban 15 gram cream apply topically 2 times a day, Elocon 15 gram cream apply topically daily, finasteride 50 mg once a day on arrival to the Emergency Room. REVIEW OF SYSTEMS: The patient denied any blurring of vision, cataract, glaucoma or macular degeneration. He does have retinal detachment. Denied any earache, tinnitus or sensorineural deafness. Denied any nosebleeds, stuffy nose or postnasal drip. Denied any sore throat, sore tongue, toothache, hoarseness of voice or difficulty swallowing. Denied any nausea, vomiting, diarrhea or constipation. Denied any hematemesis, melena or hematochezia. Denied any dysuria, frequency or hematuria. Denied any chest pain or shortness of breath. Denied any cough, phlegm or hemoptysis. His biggest problem is he is very weak and desaturates quickly with minimal exertion and cannot easily able to stand and walk, now he cannot do that. PHYSICAL EXAMINATION: GENERAL: On arrival to the Emergency Room, he looked well and was clearly in no apparent respiratory distress. No pallor, jaundice, cyanosis or thyromegaly. No jugular venous distention, but marked bilateral lower limb edema. VITAL SIGNS: His heart rate was 61, blood pressure was 122/52, temperature was 97.4, respiratory rate was 18 and oxygen saturation was 95% on 2.5 liters of oxygen. HEAD, EYES, EARS, NOSE AND THROAT: Showed normocephalic, atraumatic. NECK: Supple. HEART: Showed normal first and second heart sounds. No gallop or murmur. CHEST: Clear to auscultation. No crepitation or rhonchi. ABDOMEN: Distended, soft, nontender. NEUROLOGIC: He is awake, alert, responding appropriately. All cranial nerves intact. He moves his extremities without difficulty, although he is mostly bed-bound. LABORATORY DATA: His lab work on admission showed white cell count 4200, hemoglobin 13, hematocrit 40, MCV 100 and platelet count of 110,000. His chemistry showed a serum sodium 142, potassium 4.5, chloride 107, bicarbonate 35, anion gap of 0, BUN 23, creatinine 1.1, estimated GFR was 65 mL per minute. His glucose was 92, calcium was 9.1. Total bilirubin, AST, ALT, alkaline phosphatase were normal. Beta-natriuretic peptide was 508. Total protein was 7.3, albumin was 2.9. Urinalysis showed the urine was nataliia, hazy with a pH of 6, specific gravity more than 1.030. Total protein was more than 100 mg/dL. The urine was negative for glucose, ketones, blood, nitrite, negative for leukocyte esterase. There are no rbc's, 1-4 wbc's and very few bacteria. His chest x-ray showed the patient's heart size is enlarged. The patient's size limits evaluation. There is increased density in the right lung base, which is probably superimposed soft tissue, although pleural effusion or infiltrate would be difficult to exclude. ASSESSMENT AND PLAN: The patient was admitted with acute on chronic diastolic congestive heart failure. He has multiple other medical problems including: A. Hypertension. B. Hyperlipidemia. C. Type 2 diabetes mellitus. D. Morbid obesity, obstructive sleep apnea, on CPAP. E. Peripheral neuropathy. F. Generalized osteoarthritis. G. Gout. PLAN: My plan is to continue with all his medication. I will switch him his oral Lasix to IV Lasix. We will check his blood gases to make sure he is not retaining carbon dioxide and decide on further management accordingly. UZMA DAWKINS MD DR: RAJWINDER/juan JOB#: [id number] / [id number]
[2019-10-28 15:21] VITALS: BP 105/54
--- NOTE | 2019-10-28 15:35 | NUR ---
Critical lab result-ABG- ph 7.35, PCO2-61, HCO3-34. notified and paged of critical lab result. Will continue to monitor and assess as necessary.
--- NOTE | 2019-10-28 19:15 | PN ---
DATE: 10/28/2019 SUBJECTIVE: The patient is resting slightly propped up in bed, in no apparent distress. He denied any chest pain, shortness of breath. He continues to have generalized weakness and difficulty walking and marked desaturation on minimal exertion. PHYSICAL EXAMINATION: GENERAL: When I examined him, he looked well and was clearly in no apparent respiratory distress. No pallor, jaundice, cyanosis or thyromegaly. No jugular venous distention. Marked bilateral venous stasis. VITAL SIGNS: His heart rate was 60, blood pressure was 105/58, temperature 97, respiratory rate was 20 and oxygen saturation was 96% on 4.5 liters of oxygen. The rest of clinical exam is unremarkable. His intake was 250, output was 2000. LABORATORY DATA: As of this morning, his white cell count is 7. Serum sodium 144, potassium 3.9, chloride 108, bicarbonate 35, anion gap of 1, BUN 19, creatinine 0.9, estimated GFR was 82 mL per minute. His glucose was 79, calcium was 9. First set of cardiac enzyme was less than 0.017. ASSESSMENT: 1. Generalized weakness, difficulty walking, marked desaturation with minimal exertion. 2. Acute on chronic diastolic congestive heart failure. OTHER MEDICAL PROBLEMS: Include: 1. Hypertension. 2. Hyperlipidemia. 3. Type 2 diabetes. 4. Morbid obesity, obstructive sleep apnea. PLAN: To arrange for him to have arterial blood gases and repeat all his labs, switch him to IV Lasix and we did start him on Lovenox for DVT prophylaxis. We will obviously consult Physical and Occupational Therapy to evaluate and treat. UZMA DAWKINS MD DR: RAJWINDER/juan JOB#: [id number] / [id number]
[2019-10-28 19:32] VITALS: BP 136/67
[2019-10-29 00:18] VITALS: BP 96/48
[2019-10-29 06:12] VITALS: BP 94/50
[2019-10-29 06:52] LABS: HEMATOCRIT 35.9 % (39.0-53.0); RED BLOOD COUNT 3.71 x10^6/uL (4.30-5.70); RED CELL DISTRIBUTION WIDTH 14.3 % (11.5-14.5); WHITE BLOOD COUNT 4.4 x10^3/uL (4.0-11.0)
[2019-10-29 07:03] LABS: ALBUMIN 2.6 g/dL (3.4-5.0); ALBUMIN/GLOBULIN RATIO 0.7 (1.0-1.7); C REACTIVE PROTEIN 2.5 mg/L (0-3.3); CALCIUM 8.8 mg/dL (8.5-10.1); CREATININE 0.9 mg/dL (0.7-1.3); POTASSIUM 4.1 mmol/L (3.5-5.1); TOTAL BILIRUBIN 0.9 mg/dL (0.2-1.0); TOTAL PROTEIN 6.4 g/dL (6.4-8.2)
[2019-10-29] MEDS: METOPROLOL TART IMMED RELEASE 50 MG TABLET PO SCH (08:18)
[2019-10-29] MEDS: FUROSEMIDE 40 MG/4 ML VIAL IVP SCH ×2 (08:18→13:24)
[2019-10-29] MEDS: LOSARTAN 50 MG TABLET. PO SCH (08:19)
[2019-10-29] MEDS: FINASTERIDE 5 MG TABLET PO SCH (08:19)
[2019-10-29] MEDS: POTASSIUM CHLORIDE 20 MEQ TABLET.ER. PO SCH ×3 (08:19→20:41)
[2019-10-29] MEDS: SERTRALINE 50 MG TABLET. PO SCH (08:20)
[2019-10-29] MEDS: TAMSULOSIN 0.4 MG CAP.ER.24H. PO SCH (08:20)
[2019-10-29] MEDS: GLIMEPIRIDE 2 MG TABLET PO SCH ×2 (08:20→20:42)
[2019-10-29] MEDS: MAGNESIUM OXIDE 400 MG TABLET PO SCH ×3 (08:20→20:41)
[2019-10-29] MEDS: LINAGLIPTIN 5 MG TABLET PO SCH (08:21)
[2019-10-29] MEDS: PIOGLITAZONE 15 MG TABLET. PO SCH (08:21)
[2019-10-29] MEDS: ENOXAPARIN ** NOTE DOSE ** SYRINGE SQ SCH ×2 (08:25→20:41)
[2019-10-29] MEDS: SIMVASTATIN 40 MG TABLET. PO SCH (08:26)
[2019-10-29] MEDS: FLUOCINONIDE 0.05% TP SCH (08:26)
[2019-10-29] MEDS: MUPIROCIN 2% TOPICAL OINTMENT 22GM TUBE. TP SCH ×3 (09:00→20:42)
[2019-10-29 10:35] VITALS: BP 105/58
--- NOTE | 2019-10-29 15:02 | NUR ---
Pt up in chair. at side. Dr. Solomon in to see pt. 24 hour urine collection started at 1430. Continue to monitor.
[2019-10-29 15:48] VITALS: BP 133/69
[2019-10-29 21:23] VITALS: BP 124/72
--- NOTE | 2019-10-29 22:42 | PN ---
DATE: 10/29/2019 SUBJECTIVE: The patient is sitting in his chair comfortably, in no apparent distress. He is feeling slightly better now that we will start him on IV Lasix. So far, all his investigation are unrevealing. His urinalysis was essentially unremarkable. His chemistry showed that his kidney functions are within acceptable range and no evidence of any liver disease. He obviously has severe malnutrition, marked hypoalbuminemia. His white cell count was normal. He has chronic thrombocytopenia. His sedimentation rate was 38 mm per hour. I also did blood gases which showed a pH of 7.35, pCO2 of 61, pO2 of 80, bicarbonate 34 and oxygen saturation was 95%. Chest x-ray was suboptimal given his size, the patient was slightly rotated. PHYSICAL EXAMINATION: GENERAL: When I examined him today, he was sitting comfortably in his chair, in no apparent respiratory distress. There was no pallor, jaundice, cyanosis or thyromegaly. No jugular venous distention, but has bilateral venous stasis. VITAL SIGNS: His heart rate was 60, blood pressure was 105/58, temperature was 97.7, respiratory rate 20, and oxygen saturation was 95% on 4 liters of oxygen. HEAD, EYES, EARS, NOSE AND THROAT: Showed normocephalic, atraumatic. NECK: Supple. CARDIAC: Normal first and second heart sounds. No gallop or murmur. CHEST: Shows central trachea, equal bilateral chest expansion, reduced expansion, reduced air entry, vesicular sounds. I could not really appreciate any crepitation or rhonchi. ABDOMEN: Distended, soft, nontender. NEUROLOGIC: He is awake, alert, responding appropriately. All cranial nerves are intact. He moves extremities without difficulty, ambulates with a walker. He has an indwelling Virgen catheter. His intake over the last 24 hours was 250, output was 3000. LABORATORY DATA: As of this morning, his white cell count was 4400, hemoglobin 12, hematocrit 36, MCV 97 and platelet count of 94,000. Serum sodium was 143, potassium 4.1, chloride 105, bicarbonate 35, anion gap of 3, BUN 18, creatinine was 0.9, estimated GFR was 82 mL per minute. His glucose was 72, calcium was 8.8. Total bilirubin, AST, ALT, alkaline phosphatase were normal. C-reactive protein was 2.5 mg/dL, total protein 6.4, albumin was 2.5. PLAN: My plan is to continue with current management. I will also arrange for him to have a 24-hour urine collection. Meanwhile, continue with DVT prophylaxis. Given he has a high risk for DVT and I will consult the cardiology team to assist his management. UZMA DAWKINS MD DR: RAJWINDER/juan JOB#: [id number] / [id number]
[2019-10-30 00:27] VITALS: BP 110/63
[2019-10-30 06:13] VITALS: BP 113/62
[2019-10-30 07:44] LABS: CREATININE 0.9 mg/dL (0.7-1.3); POTASSIUM 3.9 mmol/L (3.5-5.1)
[2019-10-30] MEDS: LINAGLIPTIN 5 MG TABLET PO SCH (08:17)
[2019-10-30] MEDS: MAGNESIUM OXIDE 400 MG TABLET PO SCH ×3 (08:17→20:47)
[2019-10-30] MEDS: FUROSEMIDE 40 MG/4 ML VIAL IVP SCH ×2 (08:17→14:14)
[2019-10-30] MEDS: LOSARTAN 50 MG TABLET. PO SCH (08:17)
[2019-10-30] MEDS: FINASTERIDE 5 MG TABLET PO SCH (08:18)
[2019-10-30] MEDS: SIMVASTATIN 40 MG TABLET. PO SCH (08:18)
[2019-10-30] MEDS: GLIMEPIRIDE 2 MG TABLET PO SCH ×2 (08:18→20:48)
[2019-10-30] MEDS: SERTRALINE 50 MG TABLET. PO SCH (08:18)
[2019-10-30] MEDS: PIOGLITAZONE 15 MG TABLET. PO SCH (08:18)
[2019-10-30] MEDS: METOPROLOL TART IMMED RELEASE 50 MG TABLET PO SCH (08:19)
[2019-10-30] MEDS: POTASSIUM CHLORIDE 20 MEQ TABLET.ER. PO SCH ×3 (08:19→20:48)
[2019-10-30] MEDS: TAMSULOSIN 0.4 MG CAP.ER.24H. PO SCH (08:19)
[2019-10-30] MEDS: MUPIROCIN 2% TOPICAL OINTMENT 22GM TUBE. TP SCH ×3 (08:20→20:47)
[2019-10-30] MEDS: ENOXAPARIN ** NOTE DOSE ** SYRINGE SQ SCH ×2 (08:20→20:47)
[2019-10-30] MEDS: FLUOCINONIDE 0.05% TP SCH (08:20)
[2019-10-30 11:18] VITALS: BP 106/64
--- NOTE | 2019-10-30 15:20 | NUR ---
Pt resting in bed. 24 hr urine collection complete and in lab. Will continue to monitor.
[2019-10-30 15:55] VITALS: BP 116/66
--- NOTE | 2019-10-30 19:59 | PN ---
DATE: 10/30/2019 SUBJECTIVE: The patient is sitting comfortably in his chair, eating his breakfast, in no apparent distress. He stated that he generally slightly feeling better. He is not yet back to his baseline. He continued to be on IV Lasix 40 mg IV twice a day. So far, all his lab work are unrevealing and his white cell count is normal. His kidney functions are within normal range. Thyroid function is normal. Urinalysis was unrevealing PHYSICAL EXAMINATION: GENERAL: When I saw him this afternoon, he looked well and was clearly in no apparent respiratory distress. No pallor, jaundice, cyanosis or thyromegaly. No jugular venous distension. Marked bilateral lower limb edema. VITAL SIGNS: Her heart rate was 59, blood pressure was 106/64, temperature was 97.9, respiratory rate 24 and oxygen saturation was 97% on 4 liters of oxygen. The rest of clinical exam is stable, has not really changed. His intake over the last 24 hours was 1400, output was 1500. LABORATORY DATA: As of yesterday, his white cell count was 4400, hemoglobin 12, hematocrit 36, MCV 97 and platelet count of 94,000. His chemistry this morning showed a serum sodium 141, potassium 3.9, chloride 103, bicarbonate 33, anion gap of 5, BUN 19, creatinine 0.9, estimated GFR was 82 mL per minute. Her glucose was 70 and calcium was 9. His lab work this morning showed a serum sodium 141, potassium 3.9, chloride 103, bicarbonate 33, anion gap of 5, BUN 19, creatinine 0.9, estimated GFR was 82 mL per minute. His glucose was 70, calcium was 9. TSH was normal at 2.317. ASSESSMENT: 1. Acute on chronic diastolic congestive heart failure. 2. Generalized weakness, difficulty walking, marked desaturation with minimal exertion. 3. Hypertension. 4. Hyperlipidemia. 5. Type 2 diabetes. 6. Morbid obesity, obstructive sleep apnea. He has also generalized anasarca. His marked hypoalbuminemia with serum albumin is only 2.6 g/dL for which a 24-hour urine collection for proteinuria and creatinine clearance. UZMA DAWKINS MD DR: RAJWINDER/juan JOB#: [id number] / [id number]
[2019-10-30 21:09] VITALS: BP 119/69
[2019-10-30 23:40] VITALS: BP 126/65
[2019-10-31 05:51] VITALS: BP 108/61
[2019-10-31 06:47] LABS: HEMATOCRIT 36.3 % (39.0-53.0); HEMOGLOBIN 12.1 g/dL (13.0-17.5); RED BLOOD COUNT 3.72 x10^6/uL (4.30-5.70); RED CELL DISTRIBUTION WIDTH 14.7 % (11.5-14.5); WHITE BLOOD COUNT 4.9 x10^3/uL (4.0-11.0)
[2019-10-31 07:04] LABS: ALBUMIN 2.5 g/dL (3.4-5.0); ALBUMIN/GLOBULIN RATIO 0.6 (1.0-1.7); CREATININE 0.9 mg/dL (0.7-1.3); POTASSIUM 3.9 mmol/L (3.5-5.1); TOTAL PROTEIN 6.6 g/dL (6.4-8.2)
[2019-10-31] MEDS: PIOGLITAZONE 15 MG TABLET. PO SCH (08:04)
[2019-10-31] MEDS: FUROSEMIDE 40 MG/4 ML VIAL IVP SCH ×2 (08:04→13:32)
[2019-10-31] MEDS: POTASSIUM CHLORIDE 20 MEQ TABLET.ER. PO SCH ×2 (08:04→13:32)
[2019-10-31] MEDS: ENOXAPARIN ** NOTE DOSE ** SYRINGE SQ SCH (08:04)
[2019-10-31] MEDS: MAGNESIUM OXIDE 400 MG TABLET PO SCH ×2 (08:04→13:32)
[2019-10-31] MEDS: LOSARTAN 50 MG TABLET. PO SCH (08:05)
[2019-10-31] MEDS: SERTRALINE 50 MG TABLET. PO SCH (08:05)
[2019-10-31] MEDS: GLIMEPIRIDE 2 MG TABLET PO SCH (08:05)
[2019-10-31] MEDS: FINASTERIDE 5 MG TABLET PO SCH (08:05)
[2019-10-31] MEDS: SIMVASTATIN 40 MG TABLET. PO SCH (08:05)
[2019-10-31] MEDS: LINAGLIPTIN 5 MG TABLET PO SCH (08:06)
[2019-10-31] MEDS: TAMSULOSIN 0.4 MG CAP.ER.24H. PO SCH (08:06)
[2019-10-31] MEDS: METOPROLOL TART IMMED RELEASE 50 MG TABLET PO SCH (08:06)
[2019-10-31] MEDS: FLUOCINONIDE 0.05% TP SCH (08:06)
[2019-10-31] MEDS: MUPIROCIN 2% TOPICAL OINTMENT 22GM TUBE. TP SCH ×2 (08:07→13:36)
[2019-10-31 11:10] VITALS: BP 103/59
[2019-10-31 14:30] VITALS: BP 142/69
--- NOTE | 2019-10-31 16:14 | DISCH ---
DISCHARGE ORDERS DISCHARGE DATE: Oct 31, 2019 FINAL DIAGNOSIS weakness a/c diastolic CHF CONDITION AT DISCHARGE: Stable Code Status: Full SNF STAY <30 DAYS: Yes POST DISCHARGE ORDERS: ACTIVITY ORDERS: No restrictions WEIGHT BEARING STATUS: No restrictions DIET AFTER DISCHARGE: ADA WOUND/INCISION CARE: Change dressing, May get incision wet, Routine catheter care CHECKS AFTER DISCHARGE: CHECKS AFTER DISCHARGE: Check blood press - daily, Check blood sugar, ac/hs, Check your Temp as needed TREATMENT/EQUIPMENT ORDERS: RESPIRATORY EQUIPMENT: Oxygen, Nebulizer, BiPAP DISCHARGE MEDICATIONS: Home Meds Active Scripts Glimepiride (AMARYL) 1 Mg Tablet, 1 TAB PO BID for dm for 30 Days, #60 TAB 5 Refills Prov:UZMA DAWKINS MD 10/06/19 Magnesium Oxide (Mag-Oxide) 200 Mg Tablet, 400 MG PO TID for mag for 30 Days, #180 TAB Prov:UZMA DAWKINS MD 10/06/19 Potassium Chloride (KLOR-CON M20) 20 Meq Tab.er.prt, 20 MEQ PO BID for chf for 30 Days, #60 TAB.SR Prov:UZMA DAWKINS MD 10/06/19 Furosemide (FUROSEMIDE) 40 Mg Tablet, 1 TAB PO DAILY for chf for 30 Days, #30 TAB 5 Refills Prov:UZMA DAWKINS MD 10/06/19 Reported Medications Clonazepam (KLONOPIN) 1 Mg Tablet, 1 TAB PO TID PRN for ANXIETY / AGITATION, TAB 10/27/19 Finasteride (FINASTERIDE) 5 Mg Tablet, 5 MG PO DAILY for prostate 10/27/19 Mupirocin Calcium (MUPIROCIN) 15 Gm Cream..g., 1 YESSY TP TID for diabetic wound for 10 Days, #30 GM 0 Refills 10/03/19 Pioglitazone Hcl (ACTOS) 30 Mg Tablet, 1 TAB PO DAILY for daily for 30 Days, #30 TAB 0 Refills 10/03/19 Tamsulosin Hcl (FLOMAX) 0.4 Mg Cap.er.24h, 1 CAP PO DAILY for RETENTION, #30 CAP 11 Refills 10/03/19 Sertraline Hcl (SERTRALINE HCL) 50 Mg Tablet, 50 MG PO DAILY for depression 10/03/19 Mometasone Furoate (ELOCON) 15 Gm Cream..g., 1 YESSY TP DAILY for legs LAST DOSE GIVEN: DATE: TODAY TIME: AM NEXT DOSE DUE: DATE: TOMORROW TIME: AM 07/20/19 Simvastatin (SIMVASTATIN) 80 Mg Tablet, 1 TAB PO DAILY for HIGH CHOLESTEROL LAST DOSE GIVEN: DATE: TODAY TIME: AM NEXT DOSE DUE: DATE: TOMORROW TIME: AM 07/19/19 Losartan Potassium (LOSARTAN POTASSIUM) 100 Mg Tablet, 50 MG PO DAILY for HY PERTENSION LAST DOSE GIVEN: DATE: TODAY TIME: AM NEXT DOSE DUE: DATE: TOMORROW TIME: AM 07/19/19 Metoprolol Tartrate (METOPROLOL TARTRATE) 50 Mg Tablet, 1 TAB PO DAILY for HIGH BLOOD PRESSURE LAST DOSE GIVEN: DATE: TODAY TIME: AM NEXT DOSE DUE: DATE: TOMORROW TIME: AM 07/19/19 Sitagliptin Phosphate (JANUVIA) 100 Mg Tablet, 1 TAB PO DAILY for DIABETES LAST DOSE GIVEN: DATE: TODAY TIME: AM NEXT DOSE DUE: DATE: TOMORROW TIME: AM 07/19/19 UZMA DAWKINS MD Oct 31, 2019 16:14
--- NOTE | 2019-10-31 17:03 | NUR ---
NURSING NOTES: PATIENT DISCHARGED TO [facility]. PATIENT DISCHARGE INSTRUCTIONS GIVEN TO [facility]. ALL PATIENT BELONGINGS SENT WITH PATIENT. PATIENT ASSISTED OUT OF FACILITY PER OTHER FACILITY PERSONNEL. NO CONCERNS AT THIS TIME.
[2019-10-31 22:07] LABS: TOTAL SERUM CREATININE 0.77 mg/dL (0.76-1.27); TOTAL URINE CREATININE 57.6 mg/dL (Not Estab.); UR PROTEIN 30.7 mg/dL (Not Estab.)
== END 2019-10-31 17:07 | DRG 291 ==
LOC: ER 16:41 → 1 SOUTH 20:30
PROVIDERS: ADMIT Internal Medicine; ATTEND Internal Medicine
PROC: 5A09357 Assistance with Respiratory Ventilation, Less than 24 Consecutive Hours, Continuous Positive Airway Pressure (ICD-10-PCS; principal; 2019-10-27)
PROC: 5A09357 Assistance with Respiratory Ventilation, Less than 24 Consecutive Hours, Continuous Positive Airway Pressure (ICD-10-PCS; 2019-10-28)
PROC: 5A09357 Assistance with Respiratory Ventilation, Less than 24 Consecutive Hours, Continuous Positive Airway Pressure (ICD-10-PCS; 2019-10-29)
PROC: 5A09357 Assistance with Respiratory Ventilation, Less than 24 Consecutive Hours, Continuous Positive Airway Pressure (ICD-10-PCS; 2019-10-30)
PROC: 5A09357 Assistance with Respiratory Ventilation, Less than 24 Consecutive Hours, Continuous Positive Airway Pressure (ICD-10-PCS; 2019-10-31)
DX: I11.0 Hypertensive heart disease with heart failure (principal); E43 Unspecified severe protein-calorie malnutrition; Z68.44 Body mass index [BMI] 60.0-69.9, adult; E78.00 Pure hypercholesterolemia, unspecified; Z96.653 Presence of artificial knee joint, bilateral; E66.01 Morbid (severe) obesity due to excess calories; M10.9 Gout, unspecified; M15.9 Polyosteoarthritis, unspecified; E11.42 Type 2 diabetes mellitus with diabetic polyneuropathy; E78.5 Hyperlipidemia, unspecified; G47.33 Obstructive sleep apnea (adult) (pediatric); I50.33 Acute on chronic diastolic (congestive) heart failure; D69.6 Thrombocytopenia, unspecified; J98.4 Other disorders of lung; R26.2 Difficulty in walking, not elsewhere classified; Z87.891 Personal history of nicotine dependence; Z98.41 Cataract extraction status, right eye; Z98.42 Cataract extraction status, left eye; Z79.899 Other long term (current) drug therapy; Z88.8 Allergy status to other drugs, medicaments and biological substances
CPT/HCPCS: 36415; 71045; 80048; 80053; 81001; 82575; 82803; 82947; 83880; 84156; 84443; 84484; 85025; 85027; 85651; 86140; 93005; 96374; J1650; J1940; 97116; 97530; 99285-25

== ENCOUNTER 2020-01-20 01:07 | Inpatient (IN) | payer MEDICARE ==
[~2020-01-20] VITALS: Ht 175.3 cm; Wt 177.7 kg
[~2020-01-20 01:07] MED LIST changes: +CLON1TAB PO; -FLUO20CA19 PO; +FLUO20CA20 PO; -MOME15CR13 TP; +MOME15CR7 TP
--- NOTE | 2020-01-20 01:35 | PHYS DOC ---
Past History Past Medical History: Arthritis, CHF, Depression, Diabetes, High Cholesterol, Hypertension, Prostatitis, UTI, Other Additional Past Medical Histor: sleep apnea Past Medical History Morbid Obesity, retinopathy,peripheral neuropathy, rt.retinal detachment Past Surgical History: Knee Replacement, Other Additional Past Surgical Histo: bilat knee replacement; left toe bone removed; abd hernia repair Alcohol Use: None Drug Use: None General Adult EDM: Chief Complaint: "... I..I......."" I am so weak..." HPI: HPI: Patient is a 74 year old male who presents with of mental status change.. Pt. a resident of [facility] and rehab. Since 10/31/2019. Patient sent to rehab because of weakness and fall. Patient last seen at his [facility] 5 hrs. ago. Patient reportedly had been doing well in rehab per his until approximately 2 weeks ago. Since that time he has grown more weak. Tonight patient had increased weakness and fever. 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 Patient has significant previous medical history of diabetes, morbid obesity, hypertension, chronic renal disease, O2 to dependent at 2 L, malnutrition, urinary retention, diabetic neuropathy, hyperlipidemia, major depression, obstructive sleep apnea, optic neuritis, nasal fracture, hypercapnia, venous insufficiency, prostate hyperplasia, generalized muscle weakness and deconditioning, gait disorder, seasonal allergies, CHF, and falling. Pt. normally follows with Dr. Curiel. At [place] he is followed by Dr. Solomon. Review of Systems: Review of Systems: Constitutional: History of fever or chills Eyes: Denies change in visual acuity HENT: History of nasal congestion or sore throat Respiratory: History of a nonproductive cough and shortness of breath Cardiovascular: Denies chest pain. History of peripheral edema GI: Denies abdominal pain, nausea, vomiting, bloody stools or diarrhea : History of urinary retention Musculoskeletal: History of generalized myalgia and arthralgia Integument: History of venous stasis rash Neurologic: Denies headache, focal weakness or sensory changes Endocrine: History of diabetes Lymphatic: Denies swollen glands Psychiatric: History of depression or anxiety Heart Score: HEART Score for Chest Pain: HEART Score for Chest Pain Response (Comments) Value Age > 65 2 Risk Factors >3 Risk Factors or Hx CAD 2 Total 4 Risk Factors: Risk Factors: DM, Current or recent (<one month) smoker, HTN, HLP, family history of CAD, obesity. Risk Scores: Score 0 - 3: 2.5% MACE over next 6 weeks - Discharge Home Score 4 - 6: 20.3% MACE over next 6 weeks - Admit for Clinical Observation Score 7 - 10: 72.7% MACE over next 6 weeks - Early Invasive Strategies Family History: Family History: Not currently available Allergies: Allergies: Allergies Coded Allergies Type Severity Reaction Last Updated Verified piperacillin Allergy Mild 10/03/19 Yes tazobactam Allergy Mild 10/03/19 Yes vancomycin Allergy Mild 10/03/19 Yes MICKY Inhibitors Allergy Unknown 10/03/19 Yes Physical Exam: PE: Constitutional: Moderate acute distress, ill appearance. [] HENT: Normocephalic, atraumatic, bilateral external ears normal, oropharynx moist, no oral exudates, nose normal. []Poor dentition Eyes:, EOMI, conjunctiva normal, no discharge. [] Neck: Normal range of motion, no tenderness, supple, no stridor. More than 17 inches circumference Cardiovascular: Tachycardia heart rate regular rhythm, no murmur, PMI to the left. PVCs and PACs per monitor Lungs & Thorax: Bilateral breath sounds equal apex with basilar crackles bilaterally on auscultation [] Abdomen: Bowel sounds normal, soft, no tenderness, no masses, no pulsatile masses. Morbidly obese. Large pannus. Skin: Warm, dry, no erythema, venous stasis rash on lower limbs. Rash in groin area. Back: No tenderness, no CVA tenderness. [] Extremities: No tenderness, no cyanosis, no clubbing, ROM intact, has edema to level of knees. 2+ Knee scars. Neurologic: Alert and oriented X 3, moves extremities on request but has r generalized weakness, decreased peripheral sensation in feet, very slow to respond to questions but responds appropriately. EKG: EKG: [] My interpretation EKG shows a sinus rhythm at 98 bpm. Does have occasional ventricular premature complexes and atrial premature complexes. Does have leftward axis. But no findings of acute STEMI with contralateral changes. Radiology/Procedures: Radiology/Procedures: Signed [facility] [id number] : 1945 LOCATION: ER AGE: 74 SEX: M EXAM STATUS: REG ER ORD. PHYSICIAN: KAYE JAIME MD REASON: mental status change, hx falls PROCEDURE: CT HEAD AND CERVICAL SPINE WO EXAM: 1. CT HEAD WITHOUT CONTRAST. 2. CT CERVICAL SPINE WITHOUT CONTRAST. HISTORY: Fall, altered mental status. TECHNIQUE: Computed tomography of the head and cervical spine was performed without intravenous contrast. One or more of the following individualized dose reduction techniques were utilized for this examination: 1. Automated exposure control. 2. Adjustment of the mA and/or kV according to patient size. 3. Use of iterative reconstruction technique. COMPARISON: None. FINDINGS: There is no intracranial hemorrhage. Hypoattenuation within the periventricular white matter indicates mild chronic microangiopathic change. Prominence of the lateral ventricles and hemispheric sulci indicates mild atrophy. There is an mucus retention cyst in the right maxillary sinus. There is mild mucosal thickening elsewhere. There are changes of bilateral cataract surgery. The temporal bones are unremarkable. The calvarium reveals no suspicious lesions. There are limitations from motion artifact. Alignment is maintained. The craniocervical junction is unremarkable. No fractures are identified. There is mild diffuse degenerative disc disease. There is no prevertebral soft tissue swelling. At C2-3, there is a small posterior disc bulge. Left facet osteoarthritis is moderate. At C3-4, there is a small posterior disc bulge. Facet osteoarthritis is mild to moderate bilaterally. At C4-5, there is a small posterior disc bulge. Facet osteoarthritis is moderate on the right and mild on the left. At C5-6, there is a small posterior disc bulge. Facet osteoarthritis is mild bilaterally. At C6-7, facet osteoarthritis is moderate on the right and mild on the left. Neural foraminal stenosis is mild on the right. IMPRESSION: 1. No acute intracranial findings. 2. Mild atrophy and chronic microangiopathic white matter change. 3. No cervical fracture or malalignment. Mild degenerative changes as above. Electronically signed by: Mercy Kunz MD (01/20/2020 2:50 AM) [facility] DICTATED AND SIGNED BY: ANTOIEN KUNZ MD DATE: 01/20/20 0250 CC: KAYE JAIME MD; ALLI CURIEL MD ~My interpretation checks x-ray shows left basilar infiltrate/atelectasis. Cardiomegaly. Some increased cephalization. [] Course & Med Decision Making: Course & Med Decision Making Review.at pertinent Labs and Imaging studies reviewed. (See chart for details) Procedure note: Attempt hendrix cath. Kit and clean tech. Unable pass hendrix- no coud catheters or stylets available. Advised that there was no longer a urinary cart available at [facility] Patient admitted to Impression: 1. Mental status change 2. Fever 3. Left lower infiltrate-pneumonia 4. Leukocytosis 18.8 with 83 segs 5. Thrombocytopenia on 117 6. Hypokalemia 3.0 7. Diabetes glucose 155 8. Elevated d-dimer 2.05 9. Hypo-magnesium 1.2 10. Elevated AST 39 11. Elevated lactic acid 2.5 12. Weakness 13. Morbid obesity 14. Hx. of Sleep Apnea and Hypercarbia Dragon Disclaimer: Dragbernadine Disclaimer: This electronic medical record was generated, in whole or in part, using a voice recognition dictation system. Departure Departure: Disposition: HOME/RESIDENCE PRIOR TO ADM Condition: STABLE Referrals: ALLI CURIEL MD (PCP) Alejandra Disclaimer This chart was dictated in whole or in part using Voice Recognition software in a busy, high-work load, and often noisy Emergency Department environment. It may contain unintended and wholly unrecognized errors or omissions. Dragon Disclaimer This chart was dictated in whole or in part using Voice Recognition software in a busy, high-work load, and often noisy Emergency Department environment. It may contain unintended and wholly unrecognized errors or omissions. COVID-19 Assessment COVID-19 Patient Risks: Age 65 or older: Yes Sign of co-morbidity: Yes Exp to person + for COVID: No Exp to PUI: Yes Travel from affected area: No Lower respiratory symptoms: Yes Fever: Yes Comments: Use PPE equipment as provided, mask, cap, gloves,yellow gown,shoe covers.[id number] KAYE JAIME MD Jan 20, 2020 01:35
[2020-01-20] MEDS ORDERED: FUROSEMIDE 40 MG/4 ML VIAL IVP ONE (02:00)
[2020-01-20] MEDS ORDERED: ASPIRIN CHEWABLE 81 MG TABLET. PO ONE (02:00)
[2020-01-20] MEDS ORDERED: ACETAMINOPHEN 500 MG TABLET PO ONE ×2 (02:20→03:30)
[2020-01-20 02:36] LABS: CALCIUM 9.7 mg/dL (8.5-10.1); CREATININE 1.1 mg/dL (0.7-1.3); GFR 65.1
[2020-01-20 02:49] LABS: ALBUMIN 3.2 g/dL (3.4-5.0); DIRECT BILIRUBIN 0.4 mg/dL (0.0-0.2); MAGNESIUM 1.2 mg/dL (1.8-2.4); TOTAL BILIRUBIN 1.4 mg/dL (0.2-1.0); TOTAL PROTEIN 8.7 g/dL (6.4-8.2)
[2020-01-20 02:53] LABS: INFLUENZA A PATIENT NEGATIVE (NEGATIVE); INFLUENZA B PATIENT NEGATIVE (NEGATIVE)
--- NOTE | 2020-01-20 02:53 | RAD ---
EXAM: 1. CT HEAD WITHOUT CONTRAST. 2. CT CERVICAL SPINE WITHOUT CONTRAST. HISTORY: Fall, altered mental status. TECHNIQUE: Computed tomography of the head and cervical spine was performed without intravenous contrast. One or more of the following individualized dose reduction techniques were utilized for this examination: 1. Automated exposure control. 2. Adjustment of the mA and/or kV according to patient size. 3. Use of iterative reconstruction technique. COMPARISON: None. FINDINGS: There is no intracranial hemorrhage. Hypoattenuation within the periventricular white matter indicates mild chronic microangiopathic change. Prominence of the lateral ventricles and hemispheric sulci indicates mild atrophy. There is an mucus retention cyst in the right maxillary sinus. There is mild mucosal thickening elsewhere. There are changes of bilateral cataract surgery. The temporal bones are unremarkable. The calvarium reveals no suspicious lesions. There are limitations from motion artifact. Alignment is maintained. The craniocervical junction is unremarkable. No fractures are identified. There is mild diffuse degenerative disc disease. There is no prevertebral soft tissue swelling. At C2-3, there is a small posterior disc bulge. Left facet osteoarthritis is moderate. At C3-4, there is a small posterior disc bulge. Facet osteoarthritis is mild to moderate bilaterally. At C4-5, there is a small posterior disc bulge. Facet osteoarthritis is moderate on the right and mild on the left. At C5-6, there is a small posterior disc bulge. Facet osteoarthritis is mild bilaterally. At C6-7, facet osteoarthritis is moderate on the right and mild on the left. Neural foraminal stenosis is mild on the right. IMPRESSION: 1. No acute intracranial findings. 2. Mild atrophy and chronic microangiopathic white matter change. 3. No cervical fracture or malalignment. Mild degenerative changes as above. Electronically signed by: Mercy Kunz MD (01/20/2020 2:50 AM) [facility]
[2020-01-20 03:05] LABS: BASO % 0 % (0-3); EOS % 0 % (0-3); HEMATOCRIT 38.8 % (39.0-53.0); LYMPH # 0.3 x10^3/uL (1.0-4.8); LYMPH % 2 % (24-48); MEAN CORPUSCULAR HEMOGLOBIN 32 pg (25-35); MEAN CORPUSCULAR HGB CONC 33 g/dL (31-37); MEAN CORPUSCULAR VOLUME 95 fL (79-100); MONO # 1.5 x10^3/uL (0.0-1.1); MONO % 8 % (0-9); NEUT % 90 % (31-73); PLATELET COUNT 117 x10^3/uL (140-400); RED BLOOD COUNT 4.07 x10^6/uL (4.30-5.70); RED CELL DISTRIBUTION WIDTH 16.3 % (11.5-14.5); WHITE BLOOD COUNT 18.8 x10^3/uL (4.0-11.0)
--- NOTE | 2020-01-20 03:08 | RAD ---
EXAM: CHEST ONE VIEW. HISTORY: Dyspnea, fever, cough. COMPARISON: 10/27/2019. FINDINGS: A frontal view of the chest is obtained. There is a mild airspace infiltrate in the left base. An azygos fissure is noted. Widening of the mediastinum likely reflects mediastinal fat and aortic tortuosity. There is no pneumothorax or pleural effusion. The heart is mildly to moderately enlarged. There are atherosclerotic calcifications of the aorta. IMPRESSION: 1. Mild left basilar airspace infiltrate versus atelectasis. 2. Mild to moderate cardiomegaly. Electronically signed by: Mercy Kunz MD (01/20/2020 3:05 AM) [facility]
[2020-01-20 03:18] LABS: BILIRUBIN,URINE NEG (NEG); CLARITY,URINE CLEAR; COLOR,URINE YELLOW; GLUCOSE,URINE NEG (NEG); NITRITE,URINE NEG (NEG)
[2020-01-20 03:32] LABS: BACTERIA,URINE FEW /HPF (0-FEW); SQUAMOUS EPITHELIAL CELL,UR MOD /LPF; WBC,URINE 0 /HPF (0-4)
[2020-01-20 03:39] LABS: % BANDS 3 % (0-9); % LYMPHS 2 % (24-48); % METAS 1 % (0-0); % MONOS 7 % (0-10); % SEGS 87 % (35-66); PLT ESTIMATE ADEQUATE (ADEQUATE)
[2020-01-20 03:40] LABS: ANISOCYTOSIS SLIGHT
[2020-01-20] MEDS ORDERED: ONDANSETRON PF 4 MG/2 ML VIAL. IVP PRN (04:00)
[2020-01-20] MEDS ORDERED: ACETAMINOPHEN 325 MG TABLET PO PRN (04:00)
[2020-01-20 04:03] LABS: BGAS PH 7.5 (7.35-7.46)
[2020-01-20] MEDS ORDERED: ANTI-COAG MONITOR BY PHARMACY. MC PRN (04:15)
[2020-01-20] MEDS ORDERED: MAGNESIUM HYDROXIDE 2,400 MG/30 ML ORAL.SUSP. PO ONE (04:30)
[2020-01-20] MEDS ORDERED: IV RINGERS SOLUTION,LACTATED 1,000 ML IV ONE (04:30)
[2020-01-20] MEDS ORDERED: ENOXAPARIN ** NOTE DOSE ** SYRINGE SQ SCH (04:30)
--- NOTE | 2020-01-20 04:57 | EKG ---
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
[2020-01-20] MEDS: POTASSIUM CHLORIDE 20 MEQ TABLET.ER. PO SCH ×5 (04:58→20:40)
[2020-01-20 08:00] VITALS: BP 105/67
[2020-01-20] MEDS: IPRATRPIUM/ALBUTEROL 0.5/2.5MG 3 ML NEBU. NEB SCH ×2 (08:00→12:00)
[2020-01-20] MEDS ORDERED: POTASSIUM CHLORIDE 20 MEQ TABLET.ER. PO ONE (08:00)
[2020-01-20] MEDS ORDERED: POTA20TA4 PO (08:39)
[2020-01-20] MEDS ORDERED: ASPI81TA59 PO (08:39)
[2020-01-20] MEDS ORDERED: FURO40TA4 PO (08:39)
[2020-01-20] MEDS ORDERED: MAGN400T5 PO (08:39)
[2020-01-20] MEDS ORDERED: SIMV40TA18 PO (08:39)
[2020-01-20] MEDS ORDERED: CETI10TA16 PO (08:45)
[2020-01-20] MEDS ORDERED: MULT-245 PO (08:45)
[2020-01-20] MEDS ORDERED: PHEN28OI RC (08:45)
[2020-01-20] MEDS ORDERED: DULO60CA6 PO (08:45)
[2020-01-20] MEDS ORDERED: OMEG-33 PO (08:45)
[2020-01-20] MEDS ORDERED: NYST15PO9 TP (08:45)
[2020-01-20] MEDS: NYSTATIN TOPICAL POWDER 15GM BOTTLE. TP SCH ×2 (09:00→21:00)
[2020-01-20] MEDS: MAGNESIUM OXIDE 400 MG TABLET PO SCH ×2 (09:00→20:40)
[2020-01-20] MEDS ORDERED: IV NORMAL SALINE 1,000ML 1,000 ML IV ONE ×2 (09:15→17:00)
[2020-01-20 12:19] VITALS: BP 127/58
[2020-01-20 13:27] LABS: THYROID STIM HORMONE (TSH) 0.986 uIU/mL (0.358-3.740)
[2020-01-20] MEDS ORDERED: MAGNESIUM SULFATE 2GM 50 ML IV ONE (14:45)
--- NOTE | 2020-01-20 15:28 | HP ---
ADMIT DATE: 01/20/2020 ADDENDUM PAST MEDICAL HISTORY: Significant for hypertension, hyperlipidemia, type 2 diabetes mellitus. He is also known to have morbid obesity, obstructive sleep apnea, on CPAP; generalized osteoarthritis, gout, peripheral neuropathy affecting both hands and feet. He also had detached retina of the right eye and seemed to have also optic neuropathy. He is also known to have chronic diastolic congestive heart failure. PAST SURGICAL HISTORY: Significant for bilateral total knee arthroplasty, periumbilical hernia repair, bilateral cataract extraction, tonsillectomy as well as colonoscopy. ALLERGIES: HE IS ALLERGIC TO MICKY INHIBITORS HE DEVELOPED ANGIONEUROTIC EDEMA. HE APPARENTLY ALSO IS ALLERGIC TO PIPERACILLIN AND TAZOBACTAM WELL VANCOMYCIN. FAMILY HISTORY: Noncontributory. SOCIAL HISTORY: He is and lives with his for 56 years. He lives at home with his . He is a former smoker. He does not drink alcohol or use recreational drugs. He has retired from [employer]. MEDICATIONS: He is currently on following medications: He is on cetirizine 10 mg once a day, simvastatin 40 mg at bedtime, omega-3 fatty acid and fish oil twice a day, metoprolol tartrate 50 mg once a day, aspirin 81 mg once a day, duloxetine 60 mg once a day, potassium chloride 40 mEq twice a day, furosemide 40 mg daily, magnesium oxide 400 mg daily, Nystatin powder applied topically twice a day, multivitamin 1 tablet once a day, finasteride 5 mg once a day. PHYSICAL EXAMINATION: GENERAL: On arrival to the Emergency Room, the patient looked clearly tachypneic. He was febrile, but there was no pallor, jaundice, cyanosis or thyromegaly. No jugular venous distention. Mild bilateral lower extremity edema. VITAL SIGNS: His heart rate was 101, blood pressure was 157/80, temperature was 102, respiratory rate was 26 and oxygen saturation was 97% on 3 liters of oxygen by nasal cannula. HEAD, EYES, EARS, NOSE AND THROAT: Showed normocephalic, atraumatic. NECK: Supple. HEART: Showed normal first and second heart sounds. No gallop, murmurs. CHEST: Clear to auscultation. No crepitation or rhonchi. ABDOMEN: Distended, soft, nontender. No guarding or rigidity. No organomegaly. All hernial orifice intact. Bowel sounds normal. NEUROLOGIC: He was awake, alert, oriented x 3, moves extremities on request, but has generalized weakness and decreased peripheral sensation in both feet and the hands. LABORATORY DATA: While in the Emergency Room, he had an EKG, which showed he was in sinus rhythm with heart rate 98 per minute with occasional ventricular premature complexes and atrial premature complexes and there are no findings of acute STEMI with contralateral changes. CT scan of the head without contrast and CT scan of the cervical spine without contrast showed that the patient has no acute intracranial finding, mild atrophy and chronic microangiopathic white matter changes and no cervical fracture or malalignment, mild degenerative changes as above. His chest x-ray showed that he has left lower lobe infiltrate. His lab work showed his white cell count was 18,800, hemoglobin 13, hematocrit 38.8, MCV 95, and platelet count of 117,000 with a manual differential of 90 polymorphs, 2% lymphocytes, and 8 monocytes. His blood gas showed a pH of 7.50, pCO2 of 36, pO2 of 68, bicarbonate 28, and oxygen saturation was 95% on FiO2 of 36%. His chemistry showed a serum sodium 138, potassium 3, chloride 99, bicarbonate 32, anion gap of 7, BUN 24, creatinine 1.1, estimated GFR was 65 mL per minute, his glucose 155, calcium was 9.7. Total bilirubin, AST, ALT, alkaline phosphatase were normal. Total protein was 8.7 and albumin was 3.2. His lipase was 66. His lactic acid was 3.7. His prothrombin time, INR and APTT were normal. D-dimer slightly elevated 2.05. Urinalysis was essentially unremarkable and his influenza A and B were negative and group A streptococcus rapid test was negative. ASSESSMENT AND PLAN: In summary, this is a 74-year-old male patient, a resident at [facility], who was admitted with generalized weakness and altered mental status. He was febrile with left lower lobe infiltrate, has also leukocytosis. 1. Chronic thrombocytopenia as well known. 2. Hypokalemia. 3. Type 2 diabetes mellitus with blood glucose 155. 4. Hypomagnesemia. 5. Morbid obesity. 6. Obstructive sleep apnea. PLAN: My plan is to replenish his potassium. I will hold his Lasix for now and continue with all other medication. I will repeat all his labs tomorrow. UZMA DAWKINS MD DR: Александр JOB#: [id number] / [id number]
[2020-01-20 15:41] VITALS: BP 110/80
[2020-01-20] MEDS ORDERED: PHENYLEPH/MINERAL OIL/PETROLAT RECTAL OINTMENT TUBE. RC PRN (15:45)
[2020-01-20] MEDS: IPRATROPIUM/ALBUTEROL 20/100mcg/INH INHALER. INH SCH ×2 (16:15→20:39)
[2020-01-20] MEDS: FINASTERIDE 5 MG TABLET PO SCH (16:24)
[2020-01-20 16:32] LABS: CALCIUM 8.8 mg/dL (8.5-10.1); CREATININE 1.1 mg/dL (0.7-1.3); GFR 65.1
[2020-01-20 16:33] LABS: MAGNESIUM 1.4 mg/dL (1.8-2.4)
--- NOTE | 2020-01-20 17:05 | HP ---
ADMIT DATE: 01/20/2020 The patient is a 74-year-old male patient, currently residing at [facility] to continue rehabilitation. He has been there since 10/31/2019. In fact, he was supposed to go home a few days ago and apparently the nursing staff noted that he has been extremely weak and has had experienced episodes of urinary incontinence. He apparently has also fever and this morning the nursing staff called me, so I recommended that the patient should be transferred to the Emergency Room of [facility] for further evaluation and treatment. On arrival to the Emergency Room, the patient was in moderate acute distress, ill appearing; however, he was febrile with a heart rate of 102, he was slightly tachypneic. His lab work showed he has leukocytosis, the white cell count of 18,800. His chemistry, however, showed that his BUN and creatinine are stable. He has hypokalemia with potassium of only 3. His blood gases were not bad actually at all, his pH was 7.50, pCO2 of 36, pO2 of 68, bicarbonate 28, and oxygen saturation was 96%. His urinalysis showed that the patient was negative for nitrite. There are no wbc's and very few bacteria. His influenza A, B and group A streptococcus rapid test overall negative. His chest x-ray showed there is mild airspace infiltrate in the left base and azygos fissure is noted, widening of the mediastinum likely reflects mediastinal fat and aortic tortuosity. There is no pneumothorax or pleural effusion. The heart is mildly to moderately enlarged. There is atherosclerotic calcification of the aorta, did have a CT scan of the head and cervical spine showed that the patient has no acute intracranial finding, mild atrophy and chronic microangiopathic white matter changes. No cervical fracture or malalignment, mild degenerative changes as above. The patient was admitted with altered mental status, healthcare-associated pneumonia. He is known to have chronic thrombocytopenia, hypokalemia, elevated D-dimer, hypomagnesemia, lactic acidosis, generalized weakness, morbid obesity and obstructive sleep apnea. He basically was swabbed for COVID and was admitted to be treated for healthcare-associated pneumonia as well as to rule out the possibility of COVID-19 infection. He did receive a liter of lactated Ringer's in the Emergency Room as well as IV levofloxacin and 40 mEq of potassium. We did actually give him another liter of normal saline and we will continue with healthcare-associated pneumonia treatment. He weighs 177 kilograms. I do not think our CT scan machine will accommodate his size. ZUMA DAWKINS MD DR: RAJWINDER/juan JOB#: [id number] / [id number]
[2020-01-20 19:20] VITALS: BP 127/67
[2020-01-20] MEDS: LACTOBACILLUS RHAMNOSUS GG 1 CAPSULE. PO SCH (20:39)
[2020-01-20] MEDS: OMEGA-3 FATTY ACIDS/FISH OIL 1,000 MG CAPSULE. PO SCH (20:39)
[2020-01-20] MEDS: ENOXAPARIN ** NOTE DOSE ** SYRINGE SQ SCH (20:40)
[2020-01-20] MEDS: SIMVASTATIN 40 MG TABLET. PO SCH (20:40)
[2020-01-20] MEDS ORDERED: POTASSIUM CHLORIDE 20 MEQ TABLET.ER. PO SCH (21:00)
[2020-01-20 23:28] VITALS: BP 122/67
[2020-01-21 05:34] VITALS: BP 106/53
[2020-01-21 07:43] LABS: BASO % 1 % (0-3); EOS # 0.3 x10^3/uL (0.0-0.7); EOS % 3 % (0-3); HEMATOCRIT 31.8 % (39.0-53.0); HEMOGLOBIN 10.7 g/dL (13.0-17.5); LYMPH # 1.2 x10^3/uL (1.0-4.8); LYMPH % 11 % (24-48); MEAN CORPUSCULAR HEMOGLOBIN 32 pg (25-35); MEAN CORPUSCULAR HGB CONC 34 g/dL (31-37); MEAN CORPUSCULAR VOLUME 95 fL (79-100); MONO # 1.2 x10^3/uL (0.0-1.1); MONO % 12 % (0-9); NEUT # 7.7 x10^3uL (1.8-7.7); NEUT % 74 % (31-73); PLATELET COUNT 88 x10^3/uL (140-400); RED BLOOD COUNT 3.34 x10^6/uL (4.30-5.70); RED CELL DISTRIBUTION WIDTH 16.4 % (11.5-14.5); WHITE BLOOD COUNT 10.4 x10^3/uL (4.0-11.0)
[2020-01-21 07:52] LABS: ALBUMIN 2.2 g/dL (3.4-5.0); ALBUMIN/GLOBULIN RATIO 0.5 (1.0-1.7); CALCIUM 8.6 mg/dL (8.5-10.1); CREATININE 0.9 mg/dL (0.7-1.3); MAGNESIUM 1.8 mg/dL (1.8-2.4); POTASSIUM 3.7 mmol/L (3.5-5.1); TOTAL PROTEIN 6.7 g/dL (6.4-8.2)
[2020-01-21] MEDS: IPRATROPIUM/ALBUTEROL 20/100mcg/INH INHALER. INH SCH ×4 (08:00→21:00)
[2020-01-21] MEDS: FINASTERIDE 5 MG TABLET PO SCH (08:33)
[2020-01-21] MEDS: POTASSIUM CHLORIDE 20 MEQ TABLET.ER. PO SCH ×3 (08:34→21:00)
[2020-01-21] MEDS: MAGNESIUM OXIDE 400 MG TABLET PO SCH ×2 (08:34→21:00)
[2020-01-21] MEDS: OMEGA-3 FATTY ACIDS/FISH OIL 1,000 MG CAPSULE. PO SCH ×2 (08:34→21:00)
[2020-01-21] MEDS: DULoxetine HCL 60 MG CAPSULE.DR PO SCH (08:34)
[2020-01-21] MEDS: LACTOBACILLUS RHAMNOSUS GG 1 CAPSULE. PO SCH ×2 (08:34→21:00)
[2020-01-21] MEDS: ASPIRIN CHEWABLE 81 MG TABLET. PO SCH (08:34)
[2020-01-21] MEDS: CETIRIZINE HCL 10 MG TABLET PO SCH (08:34)
[2020-01-21] MEDS: MULTIVITAMIN with MINERAL TABLET. PO SCH (08:35)
[2020-01-21] MEDS: ENOXAPARIN ** NOTE DOSE ** SYRINGE SQ SCH ×2 (08:35→21:00)
[2020-01-21] MEDS: NYSTATIN TOPICAL POWDER 15GM BOTTLE. TP SCH ×2 (08:36→20:00)
[2020-01-21 08:47] LABS: % BANDS 3 % (0-9); % EOS 2 % (0-5); % LYMPHS 9 % (24-48); % MONOS 11 % (0-10); % SEGS 75 % (35-66); PLT ESTIMATE DECREASED (ADEQUATE)
[2020-01-21 08:48] LABS: TOXIC GRANULATION SLIGHT; TOXIC VACUOLATION SLIGHT
[2020-01-21 08:50] LABS: POLYCHROMASIA SLIGHT
[2020-01-21] MEDS ORDERED: MAGNESIUM OXIDE PO SCH (09:00)
[2020-01-21 10:42] VITALS: BP 123/65
--- NOTE | 2020-01-21 13:07 | PN ---
DATE: SUBJECTIVE: The patient is resting, slightly propped up in bed, no apparent distress. He is more awake, alert; however, he apparently continued to be incontinent and therefore with marked erythema, maceration of his perianal area. Decision was made to put a Virgen catheter in. PHYSICAL EXAMINATION: GENERAL: When I examined him this morning, he looked pale; no jaundice, cyanosis or thyromegaly. No jugular venous distention or limb edema. VITAL SIGNS: His heart rate was 86, blood pressure was 123/65, temperature 97.4, respiratory rate was 20, and oxygen saturation was 100% on 3 liters of oxygen. HEAD, EYES, EARS, NOSE AND THROAT: Showed normocephalic, atraumatic. NECK: Supple. CARDIAC: Normal first and second heart sounds. No gallop or murmur. CHEST: Clear to auscultation. No crepitation or rhonchi. ABDOMEN: Distended, soft, nontender. NEUROLOGIC: He was awake, alert, responding appropriately. All cranial nerves intact. He moves extremities without difficulty, although he is mostly bedbound. His intake and output are incompletely recorded. LABORATORY DATA: His lab work this morning showed his white cell count is much improved today at 10,400, hemoglobin 11, hematocrit 32, MCV 95, and platelet count of 88,000. His serum sodium was 137, potassium 3.7, chloride 104, bicarbonate 29, anion gap of 4, BUN 22, creatinine 0.9, estimated GFR was 82 mL per minute. His glucose 105, calcium was 8.6, magnesium was 1.8. Total bilirubin, AST, ALT, alkaline phosphatase were normal. Total protein 6.7, albumin 2.2. His influenza A, B and group A were negative. His COVID-19 by PCR is also negative. Urinalysis was unremarkable. ASSESSMENT: 1. This is a 74-year-old male patient who was resident at [facility], who was admitted with generalized weakness and altered mental status. 2. He was febrile, has left lower lobe infiltrate and marked leukocytosis. 3. Chronic thrombocytopenia. 4. Hypokalemia. 5. Type 2 diabetes mellitus with blood glucose that is well controlled. 6. Hypomagnesemia. 7. Morbid obesity, obstructive sleep apnea. PLAN: To continue with IV antibiotic in the form of levofloxacin. Continue to monitor his electrolyte and replenish them as needed. Continue with DVT prophylaxis and we will start the process of physical and occupational therapy. UZMA DAWKINS MD DR: RAJWINDER/juan JOB#: [id number] / [id number]
[2020-01-21 14:36] VITALS: BP 129/70
[2020-01-21 19:00] VITALS: BP 126/66
[2020-01-21] MEDS: SIMVASTATIN 40 MG TABLET. PO SCH (21:00)
[2020-01-21 23:00] VITALS: BP 125/60
[2020-01-22 07:14] VITALS: BP_SYST 135; BP_SYST 152; BP_DIAS 77; BP_DIAS 81
[2020-01-22 07:45] LABS: HEMATOCRIT 30.2 % (39.0-53.0); HEMOGLOBIN 10.3 g/dL (13.0-17.5); RED BLOOD COUNT 3.16 x10^6/uL (4.30-5.70); RED CELL DISTRIBUTION WIDTH 16.4 % (11.5-14.5); WHITE BLOOD COUNT 5.8 x10^3/uL (4.0-11.0)
[2020-01-22 07:55] LABS: CALCIUM 8.9 mg/dL (8.5-10.1); CREATININE 0.8 mg/dL (0.7-1.3); MAGNESIUM 1.5 mg/dL (1.8-2.4); POTASSIUM 3.9 mmol/L (3.5-5.1)
[2020-01-22] MEDS: IPRATROPIUM/ALBUTEROL 20/100mcg/INH INHALER. INH SCH ×4 (08:00→20:18)
[2020-01-22] MEDS: POTASSIUM CHLORIDE 20 MEQ TABLET.ER. PO SCH ×3 (08:39→20:17)
[2020-01-22] MEDS: CETIRIZINE HCL 10 MG TABLET PO SCH (08:39)
[2020-01-22] MEDS: LACTOBACILLUS RHAMNOSUS GG 1 CAPSULE. PO SCH ×2 (08:39→20:16)
[2020-01-22] MEDS: DULoxetine HCL 60 MG CAPSULE.DR PO SCH (08:40)
[2020-01-22] MEDS: OMEGA-3 FATTY ACIDS/FISH OIL 1,000 MG CAPSULE. PO SCH ×2 (08:40→20:16)
[2020-01-22] MEDS: MULTIVITAMIN with MINERAL TABLET. PO SCH (08:40)
[2020-01-22] MEDS: ASPIRIN CHEWABLE 81 MG TABLET. PO SCH (08:40)
[2020-01-22] MEDS: FINASTERIDE 5 MG TABLET PO SCH (08:40)
[2020-01-22] MEDS: ENOXAPARIN ** NOTE DOSE ** SYRINGE SQ SCH ×2 (08:41→20:18)
[2020-01-22] MEDS: NYSTATIN TOPICAL POWDER 15GM BOTTLE. TP SCH ×2 (08:41→20:17)
[2020-01-22 11:00] VITALS: BP 136/74
[2020-01-22] MEDS ORDERED: MAGNESIUM SULFATE 2GM 50 ML IV ONE (12:00)
--- NOTE | 2020-01-22 12:17 | PN ---
DATE: 01/22/2020 SUBJECTIVE: The patient is resting, almost flat in bed, no apparent distress, awake, alert. When I questioned him, he denied any complaint. Nursing staff did not voice any concerns, that he has generally uneventful night. PHYSICAL EXAMINATION: GENERAL: When I examined him, he looked well. He was actually pale, but not jaundiced, cyanosed or thyromegaly. No jugular venous distention. No lower limb edema. VITAL SIGNS: Her heart rate was 100, blood pressure was 135/77, temperature was 97.8, respiratory rate was 18 and oxygen saturation was 94% on 3 liters of oxygen. HEAD, EYES, EARS, NOSE AND THROAT: Normocephalic, atraumatic. NECK: Supple. HEART: Showed normal first and second heart sounds. No gallop, rub or murmur. CHEST: Clear to auscultation. No crepitation or rhonchi. ABDOMEN: Distended, soft, nontender. NEUROLOGIC: He was awake, alert, responding appropriately. All cranial nerves are intact. He moves extremities without difficulty. He has an indwelling Virgen catheter. His intake over the last 24 hours was 1400, output was 1175. LABORATORY DATA: As of this morning, his white cell count is down to 5800, hemoglobin 10, hematocrit 30, MCV 96, and platelet count of 97,000. His chemistry showed a serum sodium 139, potassium 3.9, chloride 104, bicarbonate 29, anion gap of 6, BUN 15, creatinine 0.8, estimated GFR was 94 mL per minute. His glucose 104, calcium was 8.9, magnesium was 1.5. His total bilirubin, AST, ALT, alkaline phosphatase were normal. Total protein 6.7, albumin 2.2. His prothrombin time, INR and aPTT were normal. D-dimer slightly elevated. Urinalysis was unremarkable and his COVID-19 by PCR was negative. His influenza A and B and group A Streptococcus was negative. ASSESSMENT: 1. This is a 74-year-old male patient who was resident at [facility] was admitted with generalized weakness and altered mental status. 2. He was febrile and has left lower lobe infiltrate with marked leukocytosis. 3. Chronic thrombocytopenia. 4. Hypokalemia. 5. Type 2 diabetes mellitus. Blood glucose is well controlled. 6. Hypomagnesemia. 7. Morbid obesity, obstructive sleep apnea. PLAN: To continue with IV antibiotic in the form of levofloxacin. He is afebrile. His white cell count is down from 18,000-5000. Continue to monitor. Replenish his electrolytes. Continue with DVT prophylaxis and I will order another 2 grams of magnesium sulfate and hopefully tomorrow, we will start physical and occupational therapy. UZMA DAWKINS MD DR: RAJWINDER/juan JOB#: [id number] / [id number]
[2020-01-22] MEDS: MAGNESIUM OXIDE 400 MG TABLET PO SCH ×2 (14:00→20:17)
[2020-01-22] MEDS: SIMVASTATIN 40 MG TABLET. PO SCH (20:17)
[2020-01-22 20:23] VITALS: BP 124/70
[2020-01-22 23:35] VITALS: BP 123/69
[2020-01-23 05:53] VITALS: BP 110/55
[2020-01-23 06:27] LABS: CREATININE 0.7 mg/dL (0.7-1.3); GFR 109.6; MAGNESIUM 1.7 mg/dL (1.8-2.4); POTASSIUM 4.3 mmol/L (3.5-5.1)
[2020-01-23] MEDS: DULoxetine HCL 60 MG CAPSULE.DR PO SCH (08:19)
[2020-01-23] MEDS: MAGNESIUM OXIDE 400 MG TABLET PO SCH ×2 (08:19→14:07)
[2020-01-23] MEDS: CETIRIZINE HCL 10 MG TABLET PO SCH (08:19)
[2020-01-23] MEDS: POTASSIUM CHLORIDE 20 MEQ TABLET.ER. PO SCH ×2 (08:19→14:08)
[2020-01-23] MEDS: MULTIVITAMIN with MINERAL TABLET. PO SCH (08:20)
[2020-01-23] MEDS: NYSTATIN TOPICAL POWDER 15GM BOTTLE. TP SCH (08:20)
[2020-01-23] MEDS: IPRATROPIUM/ALBUTEROL 20/100mcg/INH INHALER. INH SCH ×2 (08:20→12:17)
[2020-01-23] MEDS: OMEGA-3 FATTY ACIDS/FISH OIL 1,000 MG CAPSULE. PO SCH (08:20)
[2020-01-23] MEDS: FINASTERIDE 5 MG TABLET PO SCH (08:20)
[2020-01-23] MEDS: LACTOBACILLUS RHAMNOSUS GG 1 CAPSULE. PO SCH (08:20)
[2020-01-23] MEDS: ASPIRIN CHEWABLE 81 MG TABLET. PO SCH (08:20)
[2020-01-23] MEDS: ENOXAPARIN ** NOTE DOSE ** SYRINGE SQ SCH (08:20)
[2020-01-23 11:29] VITALS: BP 137/82
--- NOTE | 2020-01-23 14:56 | DS ---
DATE OF DISCHARGE: HOSPITAL COURSE: The patient is a 74-year-old male patient, who was admitted through the Emergency Room from [facility] where he was noted to be extremely weak. He also experienced some episodes of urinary incontinence. He also had fever and therefore, he was investigated extensively in the Emergency Room and was found to be tachypneic and tachycardic. He has marked leukocytosis, white cell count of 18,800. He has marked hypokalemia and hypomagnesemia. His influenza A and B as well as rapid streptococcal test was negative. His chest x-ray showed he has left lower lobe infiltrate and therefore, the patient was started on IV Levaquin. He was tested negative for COVID-19 and we did manage to replenish his potassium as well as magnesium. As on arrival, his magnesium was only 1.2 and he was seen by the physical therapist today and he managed to walk with a walker without difficulty, feeling generally much improved and therefore, a decision was made to discharge him back to [place] to continue the process of rehabilitation with the plan to monitor his electrolytes closely. PHYSICAL EXAMINATION: GENERAL: When I saw him today, he looked well and was clearly in no apparent respiratory distress. He was pale, no jaundice, cyanosis or thyromegaly. No jugular venous distention. No limb edema. VITAL SIGNS: His heart rate was 96, blood pressure was 137/82, temperature was 97.9, respiratory rate 22, and oxygen saturation was 99% on 3 liters of oxygen. HEAD, EYES, EARS, NOSE AND THROAT: Showed normocephalic, atraumatic. NECK: Supple. HEART: Showed normal first and second heart sounds. No gallop or murmur. CHEST: Clear to auscultation. No crepitation or rhonchi. ABDOMEN: Markedly distended, soft, nontender. NEUROLOGIC: He definitely is more awake, alert, responding appropriately. All cranial nerves are intact. He moves extremities without difficulty, ambulates with a walker with standby assist. His intake over the last 24 hours was 1400, output was 1175. LABORATORY DATA: As of yesterday, his white cell count was 5800, hemoglobin 10, hematocrit 30, MCV 96, and platelet count of 97,000. His chemistry as of this morning showed a serum sodium 138, potassium 4.3, chloride 104, bicarbonate 30, anion gap of 4, BUN 11, creatinine 0.7, estimated GFR was 109 mL per minute, his glucose 106, calcium was 9. Total bilirubin is 1.7. His influenza A and B as well as Streptococcus rapid test negative. His COVID-19 by PCR was negative. DISCHARGE MEDICATIONS: He was discharged back to [facility] to continue on levofloxacin 500 mg once a day for 6 more days, magnesium oxide 400 mg 3 times a day, potassium chloride 40 mEq 3 times a day, multivitamin 1 tablet once a day, duloxetine 60 mg once a day, cetirizine 10 mg once a day, aspirin 81 mg once a day, fish oil 1000 mg twice a day, simvastatin 40 mg at bedtime, lactobacillus rhamnosus 1 capsule twice a day, Preparation H 1 application every 6 hours as needed, Combivent Respimat 1 puff 4 times a day, finasteride 5 mg once a day and nystatin powder apply topically twice a day. FINAL DISCHARGE DIAGNOSES: 1. Generalized weakness, multifactorial including severe hypokalemia and severe hypomagnesemia. 2. Healthcare-associated pneumonia. 3. Chronic thrombocytopenia. 4. Type 2 diabetes mellitus with blood glucose that is well controlled. 5. Morbid obesity, obstructive sleep apnea. 6. Hypertension. UZMA DAWKINS MD DR: RAJWINDER/juan JOB#: [id number] / [id number]
[2020-01-24] MEDS ORDERED: levoFLOXacin 500 MG TABLET PO SCH (06:00)
== END 2020-01-23 15:43 | DRG 871 ==
LOC: ER 01:07 → 1 SOUTH 01:45
PROVIDERS: ADMIT Internal Medicine; ATTEND Internal Medicine
DX: A41.9 Sepsis, unspecified organism (principal); J18.9 Pneumonia, unspecified organism; I13.0 Hypertensive heart and chronic kidney disease with heart failure and stage 1 through stage 4 chronic kidney disease, or unspecified chronic kidney disease; I50.32 Chronic diastolic (congestive) heart failure; Z68.43 Body mass index [BMI] 50.0-59.9, adult; E87.6 Hypokalemia; E83.42 Hypomagnesemia; D69.6 Thrombocytopenia, unspecified; E11.22 Type 2 diabetes mellitus with diabetic chronic kidney disease; E11.319 Type 2 diabetes mellitus with unspecified diabetic retinopathy without macular edema; E11.40 Type 2 diabetes mellitus with diabetic neuropathy, unspecified; E66.01 Morbid (severe) obesity due to excess calories; E78.00 Pure hypercholesterolemia, unspecified; E78.5 Hyperlipidemia, unspecified; G47.33 Obstructive sleep apnea (adult) (pediatric); M15.9 Polyosteoarthritis, unspecified; N18.9 Chronic kidney disease, unspecified; N40.0 Benign prostatic hyperplasia without lower urinary tract symptoms; R32 Unspecified urinary incontinence; Y95 Nosocomial condition; Z87.891 Personal history of nicotine dependence; Z96.653 Presence of artificial knee joint, bilateral; Z98.41 Cataract extraction status, right eye; Z98.42 Cataract extraction status, left eye; F32.9 Major depressive disorder, single episode, unspecified; M10.9 Gout, unspecified; Z88.8 Allergy status to other drugs, medicaments and biological substances; Z79.899 Other long term (current) drug therapy; Z90.49 Acquired absence of other specified parts of digestive tract; Z20.828 Contact with and (suspected) exposure to other viral communicable diseases
CPT/HCPCS: 36415; 36600; 51702; 70450; 71045; 72125; 80048; 80053; 80061; 80076; 81001; 82550; 82803; 82947; 83605; 83690; 83735; 83880; 84443; 84484; 85007; 85025; 85027; 85379; 85610; 85730; 87040; 87070; 87635; 87804; 87880; 93005; 94640; 96365; 96372; 96375; J1650; J1940; J1956; J3475; J7120; 97116; 97530; 99285-25; J7030

== ENCOUNTER 2020-05-07 13:01 | Emergency (ER) | payer MEDICARE ==
[~2020-05-07] VITALS: Ht 170.2 cm; Wt 186.7 kg
[~2020-05-07 13:01] MED LIST changes: +ASPI-630 PO; +ASPI81TA59 PO; +CETI10TA16 PO; +CETI10TA24 PO; +DULO60CA6 PO; +IPRA4AER INH; +LACT10SO PO; +LACT1CAP21 PO; +LINE600T12 PO; +MAGN400T5 PO; +MULT-245 PO; +MULT-445 PO; -MULT1TAB52 PO; +NYST15PO9 TP; +OMEG-33 PO; +ONDA4TAB12 PO; +PHEN28OI8 RC; +RIFA550T4 PO; +SIMV40TA18 PO
[2020-05-07 14:02] LABS: BASO # 0.1 x10^3/uL (0.0-0.2); BASO % 1 % (0-3); EOS # 0.3 x10^3/uL (0.0-0.7); EOS % 6 % (0-3); HEMOGLOBIN 12.2 g/dL (13.0-17.5); LYMPH # 1.1 x10^3/uL (1.0-4.8); LYMPH % 21 % (24-48); MEAN CORPUSCULAR HEMOGLOBIN 32 pg (25-35); MEAN CORPUSCULAR HGB CONC 34 g/dL (31-37); MEAN CORPUSCULAR VOLUME 93 fL (79-100); MONO # 0.7 x10^3/uL (0.0-1.1); MONO % 14 % (0-9); NEUT # 3.1 x10^3uL (1.8-7.7); NEUT % 59 % (31-73); PLATELET COUNT 114 x10^3/uL (140-400); RED BLOOD COUNT 3.89 x10^6/uL (4.30-5.70); RED CELL DISTRIBUTION WIDTH 16.5 % (11.5-14.5); WHITE BLOOD COUNT 5.3 x10^3/uL (4.0-11.0)
[2020-05-07 14:16] LABS: GFR 72.5; POTASSIUM 3.8 mmol/L (3.5-5.1)
[2020-05-07 14:30] LABS: ALBUMIN 2.8 g/dL (3.4-5.0); ALBUMIN/GLOBULIN RATIO 0.7 (1.0-1.7); MAGNESIUM 1.6 mg/dL (1.8-2.4); TOTAL BILIRUBIN 0.9 mg/dL (0.2-1.0)
--- NOTE | 2020-05-07 14:51 | EKG ---
[address] [address] Test Date: 2020-05-07 Test Time: 13:35:36 Pat Name: RABIA KUO Department: Room: Gender: M [employer]r: LEONARDO : 1945 Requested By: RERE COLLAZO Order Number: [id number] Reading MD: Measurements Intervals Juliette Rate: 62 P: 43 KS: 216 QRS: 29 QRSD: 104 T: 41 QT: 458 QTc: 467 Interpretive Statements SINUS RHYTHM NORMAL ECG RI6.02 No previous ECG available for comparison
[2020-05-07] MEDS ORDERED: LACTULOSE 20 GM/30 ML SOLUTION. PO ONE (15:15)
[2020-05-07 15:17] VITALS: BP 126/47
[2020-05-07 15:20] LABS: BACTERIA,URINE 0 /HPF (0-FEW); BILIRUBIN,URINE NEG (NEG); CLARITY,URINE CLEAR; COLOR,URINE YELLOW; GLUCOSE,URINE NEG (NEG); NITRITE,URINE NEG (NEG); SQUAMOUS EPITHELIAL CELL,UR FEW /LPF; UROBILINOGEN,URINE 0.2 mg/dL (0.2 mg/dL); WBC,URINE OCC /HPF (0-4)
[2020-05-07] MEDS ORDERED: RIFA550T4 PO (15:31)
[2020-05-07] MEDS ORDERED: LACT10SO26 PO (15:31)
--- NOTE | 2020-05-07 15:31 | PHYS DOC ---
Past History Past Medical History: Arthritis, CHF, Depression, Diabetes, High Cholesterol, Hypertension, Prostatitis, UTI, Other Additional Past Medical Histor: sleep apnea, venous insuff, prostatic, morbic obesity, Past Surgical History: Knee Replacement, Other Additional Past Surgical Histo: bilat knee replacement; left toe bone removed; abd hernia repair Alcohol Use: None Drug Use: None General Adult EDM: Chief Complaint: ABNORMAL LABS HPI: HPI: Patient is a [age] year old [sex] who presents with [] Review of Systems: Review of Systems: Constitutional: Denies fever or chills Eyes: Denies change in visual acuity HENT: Denies nasal congestion or sore throat Respiratory: Denies cough or shortness of breath Cardiovascular: Denies chest pain or edema GI: Denies abdominal pain, nausea, vomiting, bloody stools or diarrhea : Denies dysuria Musculoskeletal: Denies back pain or joint pain Integument: Denies rash Neurologic: Denies headache, focal weakness or sensory changes Endocrine: Denies polyuria or polydipsia Lymphatic: Denies swollen glands Psychiatric: Denies depression or anxiety Heart Score: Risk Factors: Risk Factors: DM, Current or recent (<one month) smoker, HTN, HLP, family history of CAD, obesity. Risk Scores: Score 0 - 3: 2.5% MACE over next 6 weeks - Discharge Home Score 4 - 6: 20.3% MACE over next 6 weeks - Admit for Clinical Observation Score 7 - 10: 72.7% MACE over next 6 weeks - Early Invasive Strategies Current Medications: Current Meds: Current Medications Medications (Trade) Dose Ordered Sig/Dontae Start Time Stop Time Status Last Admin Dose Admin Lactulose (Lactulose) 30 gm 1X ONCE 05/07/20 15:15 05/07/20 15:17 DC 05/07/20 15:23 30 GM Allergies: Allergies: Allergies Coded Allergies Type Severity Reaction Last Updated Verified MICKY Inhibitors Allergy Intermediate ANGIO EDEMA 03/30/20 Yes piperacillin Allergy Intermediate Rash 03/30/20 Yes tazobactam Allergy Intermediate Rash 03/30/20 Yes vancomycin Allergy Intermediate Rash 03/30/20 Yes Physical Exam: PE: Constitutional: Well developed, well nourished, no acute distress, non-toxic appearance. [] HENT: Normocephalic, atraumatic, bilateral external ears normal, oropharynx moist, no oral exudates, nose normal. [] Eyes: PERRLA, EOMI, conjunctiva normal, no discharge. [] Neck: Normal range of motion, no tenderness, supple, no stridor. [] Cardiovascular:Heart rate regular rhythm, no murmur [] Lungs & Thorax: Bilateral breath sounds clear to auscultation [] Abdomen: Bowel sounds normal, soft, no tenderness, no masses, no pulsatile masses. [] Skin: Warm, dry, no erythema, no rash. [] Back: No tenderness, no CVA tenderness. [] Extremities: No tenderness, no cyanosis, no clubbing, ROM intact, no edema. [] Neurologic: Alert and oriented X 3, normal motor function, normal sensory function, no focal deficits noted. [] Psychologic: Affect normal, judgement normal, mood normal. [] Current Patient Data: Labs: Laboratory Tests Test 05/07/20 13:48 05/07/20 14:45 White Blood Count 5.3 x10^3/uL (4.0-11.0) Red Blood Count 3.89 x10^6/uL (4.30-5.70) L Hemoglobin 12.2 g/dL (13.0-17.5) L Hematocrit 36.0 % (39.0-53.0) L Mean Corpuscular Volume 93 fL (79-100) Mean Corpuscular Hemoglobin 32 pg (25-35) Mean Corpuscular Hemoglobin Concent 34 g/dL (31-37) Red Cell Distribution Width 16.5 % (11.5-14.5) H Platelet Count 114 x10^3/uL (140-400) L Neutrophils (%) (Auto) 59 % (31-73) Lymphocytes (%) (Auto) 21 % (24-48) L Monocytes (%) (Auto) 14 % (0-9) H Eosinophils (%) (Auto) 6 % (0-3) H Basophils (%) (Auto) 1 % (0-3) Neutrophils # (Auto) 3.1 x10^3uL (1.8-7.7) Lymphocytes # (Auto) 1.1 x10^3/uL (1.0-4.8) Monocytes # (Auto) 0.7 x10^3/uL (0.0-1.1) Eosinophils # (Auto) 0.3 x10^3/uL (0.0-0.7) Basophils # (Auto) 0.1 x10^3/uL (0.0-0.2) Prothrombin Time 10.3 SEC (9.4-11.4) Prothrombin Time INR 1.0 (0.9-1.1) Activated Partial Thromboplast Time 24 SEC (23-33) Sodium Level 141 mmol/L (136-145) Potassium Level 3.8 mmol/L (3.5-5.1) Chloride Level 104 mmol/L (98-107) Carbon Dioxide Level 30 mmol/L (21-32) Anion Gap 7 (6-14) Blood Urea Nitrogen 17 mg/dL (8-26) Creatinine 1.0 mg/dL (0.7-1.3) Estimated GFR (Cockcroft-Gault) 72.5 BUN/Creatinine Ratio 17 (6-20) Glucose Level 148 mg/dL (70-99) H Lactic Acid Level 1.3 mmol/L (0.4-2.0) Calcium Level 9.0 mg/dL (8.5-10.1) Magnesium Level 1.6 mg/dL (1.8-2.4) L Total Bilirubin 0.9 mg/dL (0.2-1.0) Aspartate Amino Transferase (AST) 36 U/L (15-37) Alanine Aminotransferase (ALT) 35 U/L (16-63) Alkaline Phosphatase 75 U/L (46-116) Ammonia 126 mcmol/L (11-34) H Creatine Kinase 91 U/L (39-308) Creatine Kinase MB (Mass) 2.1 ng/mL (0.0-3.6) Creatine Kinase MB Relative Index 2.3 % (0-4) Troponin I Quantitative < 0.017 ng/mL (0-0.055) Total Protein 7.0 g/dL (6.4-8.2) Albumin 2.8 g/dL (3.4-5.0) L Albumin/Globulin Ratio 0.7 (1.0-1.7) L Lipase 129 U/L (73-393) Urine Collection Type Void Urine Color Yellow Urine Clarity Clear Urine pH 7.0 Urine Specific Carson 1.020 Urine Protein Neg (NEG-TRACE) Urine Glucose (UA) Neg mg/dL (NEG) Urine Ketones (Stick) Neg mg/dL (NEG) Urine Blood Neg (NEG) Urine Nitrite Neg (NEG) Urine Bilirubin Neg (NEG) Urine Urobilinogen Dipstick 0.2 mg/dL (0.2 mg/dL) Urine Leukocyte Esterase Neg (NEG) Urine RBC 1-2 /HPF (0-2) Urine WBC Occ /HPF (0-4) Urine Squamous Epithelial Cells Few /LPF Urine Bacteria 0 /HPF (0-FEW) Vital Signs: Vital Signs Date Time Temp Pulse Resp B/P (MAP) Pulse Ox O2 Delivery O2 Flow Rate FiO2 05/07/20 14:47 66 26 146/84 (104) 99 Nasal Cannula 2.0 05/07/20 13:01 97.6 EKG: EKG: @1335 NSR at 62bpm, NO ST elevation, QRS 104ms, QT/QTc 458/467ms Radiology/Procedures: Radiology/Procedures: [] Course & Med Decision Making: Course & Med Decision Making Pertinent Labs and Imaging studies reviewed. (See chart for details) [] Dragon Disclaimer: Dragon Disclaimer: This electronic medical record was generated, in whole or in part, using a voice recognition dictation system. Departure Departure: Impression: Primary Impression: Hyperammonemia Disposition: HOME/RESIDENCE PRIOR TO ADM Condition: STABLE Referrals: ALLI ROMERO MD (PCP) FAHEEM LOPEZ MD Patient Instructions: Ammonia, FAQs Scripts Lactulose (LACTULOSE) 10 Gm/15 Ml Solution 45 ML PO BID for Hyperammonemia, #2 L 0 Refills Prov: RERE COLLAZO DO 05/07/20 Rifaximin (XIFAXAN) 550 Mg Tablet 1 TAB PO BID for Hyperammonemia for 10 Days, #20 TAB 0 Refills Prov: RERE COLLAZO DO 05/07/20 Justification of Admission: Justification of Admission: Justification of Admission Dx: N/A RERE COLLAZO DO May 07, 2020 15:31
== END 2020-05-07 16:08 | disposition home or self-care (01) ==
LOC: ER 13:01
DX: E72.20 Disorder of urea cycle metabolism, unspecified (principal); M19.90 Unspecified osteoarthritis, unspecified site; I11.0 Hypertensive heart disease with heart failure; I50.9 Heart failure, unspecified; E11.9 Type 2 diabetes mellitus without complications; E78.00 Pure hypercholesterolemia, unspecified; F32.9 Major depressive disorder, single episode, unspecified; E66.01 Morbid (severe) obesity due to excess calories; Z87.440 Personal history of urinary (tract) infections; Z68.44 Body mass index [BMI] 60.0-69.9, adult; Z88.8 Allergy status to other drugs, medicaments and biological substances; Z88.1 Allergy status to other antibiotic agents
CPT/HCPCS: 36415; 80053; 81001; 82140; 82553; 83605; 83690; 83735; 84484; 85025; 85610; 85730; 93005; 99285